=== PATIENT | female | born 1990 | race Caucasian/White ===

== ENCOUNTER 2020-05-09 12:15 | Outpatient (CLI) | payer BC, SELFPAY ==
--- NOTE | 2020-05-09 12:34 | XRR_ITS ---
PROCEDURE INFORMATION: Exam: XR Chest, 2 Views Exam date and time: 05/09/2020 12:46 PM Age: 30 years old Clinical indication: Cough and shortness of breath; Patient HX: Cough difficulty breathing since April; Additional info: Asthmatic bronchitis TECHNIQUE: Imaging protocol: XR of the chest Views: 2 views. COMPARISON: CR Chest 2 views* [id number] 01/07/2018 10:16 AM FINDINGS: Lungs: Unremarkable. No consolidation. Pleural space: Unremarkable. No pleural effusion. No pneumothorax. Heart/Mediastinum: Unremarkable. No cardiomegaly. Bones/joints: No acute findings. XR/XR chest 2V* [id number] IMPRESSION: No acute findings.
== END 2020-05-09 12:16 | disposition home or self-care (01) ==
LOC: RAD 12:21
PROVIDERS: PCP Nurse Practitioner Family; Visit Provider Nurse Practitioner Family
DX: J45.909 Unspecified asthma, uncomplicated (principal)
CPT/HCPCS: 71046

== ENCOUNTER 2020-10-16 10:44 | Outpatient (CLI) | payer BC, SELFPAY ==
--- NOTE | 2020-10-16 10:51 | XR_ITS ---
WS: [id number] XR shoulder RT min 2V* [id number] REASON FOR EXAM: R SHOULDER PAIN FINDINGS: Joint spaces of the shoulder are well preserved. No fracture or other focal bony abnormality. No soft tissue abnormality. XR/XR shoulder RT min 2V* [id number] IMPRESSION: No significant bony or joint abnormality identified.
== END 2020-10-16 10:45 | disposition home or self-care (01) ==
PROVIDERS: PCP Nurse Practitioner Family; Visit Provider Nurse Practitioner Family
DX: M25.511 Pain in right shoulder (principal)
CPT/HCPCS: 73030

== ENCOUNTER 2020-11-26 04:10 | Emergency (ER) | payer BC, SELFPAY ==
[2020-11-26] VITALS (11 sets, daily range): BP systolic 90–121; BP diastolic 54–76; PULSE 70–90; RESP 12–22; TEMP 37.1; O2SAT 93–98; BMI 26.5
[2020-11-26] MEDS: ondansetron 2 mg/ML SDV 2 mL 4 MG IVP ×3 (04:27→07:11)
[2020-11-26 04:57] LABS: Basophils % 0.3 %; Eosinophils % 0.2 %; Hemoglobin 13.5 g/dL (11.5-15.3); Lymphocytes # 0.8 10^3/uL (0.8-4.8); Lymphocytes % 5.8 %; Mean Corpuscular HGB Conc 33.8 g/dL (30.0-36.0); Monocytes # 0.6 10^3/uL (0.2-0.9); Monocytes % 4.3 %; Neutrophils # 12.52 10^3/uL (1.8-7.7); Neutrophils % 89.1 %; Nucleated Red Blood Cells % 0 %; Platelet Count 273 10^3/cmm (130-400); Red Blood Count 4.82 10^6/uL (4.1-5.3); Red Cell Distribution Width 12.7 % (12.1-15.1); White Blood Count 14.1 10^3/uL (4.0-10.0)
--- NOTE | 2020-11-26 05:03 | CTR_ITS ---
PROCEDURE INFORMATION: Exam: CT Abdomen And Pelvis With Contrast Exam date and time: 11/26/2020 5:23 AM Age: 30 years old Clinical indication: Abdominal pain; Generalized; Additional info: Ruq pain TECHNIQUE: Imaging protocol: Computed tomography of the abdomen and pelvis with contrast. Radiation optimization: All CT scans at this facility use at least one of these dose optimization techniques: automated exposure control; mA and/or kV adjustment per patient size (includes targeted exams where dose is matched to clinical indication); or iterative reconstruction. Contrast material: OMNI 300; Contrast volume: 95 ml; Contrast route: INTRAVENOUS (IV); COMPARISON: US abdomen limited [id number] 05/14/2018 9:06 AM RADIATION DOSE METRICS: Total DLP (mGy-cm): 1077.28 FINDINGS: Lungs: The lung bases are clear. No effusion Liver: There is focal fatty infiltration along the falciform ligament. Gallbladder and bile ducts: No wall thickening, pericholecystic fluid or stones. Pancreas: Normal. No ductal dilation. Spleen: Normal. No splenomegaly. Adrenal glands: Normal. No mass. Kidneys and ureters: Normal. No hydronephrosis. Stomach and bowel: Unremarkable. No obstruction. No mucosal thickening. Appendix: No evidence of appendicitis. Intraperitoneal space: Unremarkable. No free air. No significant fluid collection. Vasculature: Unremarkable. No abdominal aortic aneurysm. Lymph nodes: Unremarkable. No enlarged lymph nodes. Urinary bladder: Unremarkable as visualized. Reproductive: There is an IUD in good position. Bones/joints: Unremarkable. No acute fracture. Soft tissues: Unremarkable. CT/CT abdomen pelvis w con* [id number] IMPRESSION: No cause for pain is identified. Radiation Dose CTDIVOL = (mGy): DLP = 1077.28 (mGy-cm)
[2020-11-26 05:07] LABS: HCG, Serum Qual Negative (Negative)
[2020-11-26 05:17] LABS: Alanine Aminotransferase 10 U/L (0-33); Albumin Level 4.4 g/dL (3.5-5.2); Alkaline Phosphatase 58 IU/L (35-105); Anion Gap 18.2 (5-19); Aspartate Amino Transferase 12 U/L (0-32); Blood Urea Nitrogen 17 mg/dL (6-20); C Reactive Protein 6.8 mg/L (0.0-4.9); Calcium 8.2 mg/dL (8.5-10.5); Carbon Dioxide 24 mmol/L (22-29); Chloride 100 mmol/L (98-107); Globulin 2.7 g/dL (1.3-4.6); Glomerular Filtration Rate 146.9 mL/min (90-130); Glucose 137 mg/dL (65-115); Lipase 28 U/L (13-60); Magnesium 1.9 mg/dL (1.7-2.3); Osmolality Calculated 294 mOsm/kg (285-295); Sodium 140 mmol/L (136-145); Total Bilirubin 0.4 mg/dL (0.15-1.2); Total Protein 7.1 g/dL (6.6-8.7)
[2020-11-26 05:18] LABS: Potassium 2.2 mmol/L (3.5-5.1)
--- NOTE | 2020-11-26 05:35 | W.ED.NAVMDI ---
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 She notes that she did not feel well all day, and was tired. She began more and more nauseated, which culminated in an episode of vomiting at home. Following the vomiting episode, she had a period of cramping, mainly in her extremities that was so severe it caused her to cry out in pain. She was sure her hands or wrists were going to break due to the cramps. She called 911. She vomited 1 more time in the ambulance on the way here and had 1 more episode of cramping. Currently she still mildly nauseated but the cramping has resolved. 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: nausea and vomiting Pertinent past history: other Onset (ago): hour(s) Description of vomiting: food contents and watery Associated nausea: Yes Associated abdominal pain: No Location of pain: Other Quality: cramping Associated symtoms: Reports nausea and palpitations; Denies altered mental status, change in vision, chest pain, dizziness or fevers/chills Review of Systems Const: Denies: fever(s) or chills Eyes: Denies: change in vision Card: Reports: palpitations; Denies: chest pain Resp: Denies: dyspnea, productive cough or non-productive cough GI: Reports: nausea Neuro: Denies: dizziness Physical Exam Const: EXAM LIMITATIONS: no altered mental status GENERAL APPEARANCE: well developed ORIENTATION/CONSCIOUSNESS: Yes oriented to person, Yes oriented to place and Yes oriented to time HENMT: COMMON NORMALS: normocephalic, external ears normal and Normal external nose present HEAD & SCALP: normocephalic FACE & SINUS: normal facial exam NOSE: Normal external nose present and No nasal discharge present EXTERNAL EAR: Yes external ears normal Eye: COMMON NORMALS: EOMs intact bilaterally and conjunctivae normal EYELID: eyelids normal CONJUNCTIVA: Yes conjunctivae normal Neck/C-Spine: GENERAL: No tracheal deviation Chest: COMMONS NORMALS: normal inspection of the chest CHEST: No tenderness Resp: COMMON NORMALS: clear to auscultation bilaterally EFFORT & INSPECTION: No tachypneic, No respiratory distress, No retractions, No uses accessory muscles and No tracheal deviation AUSCULTATION: clear to auscultation bilaterally, no rhonchi, no wheezes and lung sounds not diminished Cardio: COMMON NORMALS: regular rate and regular rhythm RATE: regular rate RHYTHM: regular rhythm HEART SOUNDS: no murmurs PERIPHERAL PULSES: radial pulses present GI: INSPECTION: No abdominal distension AUSCULTATION: No Hyperactive bowel sounds present and No Hypoactive bowel sounds present PALPATION: No Guarding due to palpation present (GI) and No Rigid due to palpation PERCUSSION: no dullness to percussion and no tympanic to percussion Neuro: SENSORIUM/ORIENTATION: Yes oriented to person, Yes oriented to place and Yes oriented to time Psych: COMMON NORMALS: mental status grossly normal Skin: COMMON NORMALS: no rashes or lesions noted GENERAL SKIN EXAM: no rashes or lesions noted Course Vital Signs: Vital signs: Vital Signs Temperature 98.8 F 11/26/20 04:13 Pulse Rate 88 11/26/20 11:00 Respiratory Rate 19 H 11/26/20 11:00 Blood Pressure 110/76 11/26/20 11:00 Pulse Oximetry 97 11/26/20 11:00 MDM - Nausea/Vomiting/Diarrhea MDM Narrative: Medical decision making narrative: Cramping episodes have resolved for now. White blood cell count is 14, with left shift. Her potassium is 2.2. Magnesium is normal at 1.9. She will start potassium supplementation IV, since she has been vomiting. Evidently, she take 100 mEq of potassium 5 times a day. She will be given 40 mEq IV we will recheck the potassium following infusion. If she feels improved, she will be allowed home, given a negative CT scan which has been ordered and is pending. Lab Data: Labs: Lab Results 11/26/20 11/26/20 11/26/20 Range/Units 04:49 04:49 04:49 WBC 14.1 H (4.0-10.0) 10^3/ uL RBC 4.82 (4.1-5.3) 10^6/u L Hgb 13.5 (11.5-15.3) g/dL Hct 40.0 (37.0-47.0) % MCV 83.0 (81-99) fL MCH 28.0 (28.0-34.0) pg MCHC 33.8 (30.0-36.0) g/dL RDW 12.7 (12.1-15.1) % Plt Count 273 (130-400) 10^3/c mm MPV 9.0 (7.4-10.4) fL Neut % (Auto) 89.1 % Lymph % (Auto) 5.8 % Crowley % (Auto) 4.3 % Eos % (Auto) 0.2 % Baso % (Auto) 0.3 % Neut # (Auto) 12.52 H (1.8-7.7) 10^3/u L Lymph # (Auto) 0.8 (0.8-4.8) 10^3/u L Crowley # (Auto) 0.6 (0.2-0.9) 10^3/u L Eos # (Auto) 0.0 (0.0-0.8) 10^3/u L Baso # (Auto) 0.0 (0.0-0.1) 10^3/u L Nucleated RBC % (a uto) 0 % Nucleated RBCs # 0.0 /100WBC Sodium 140 (136-145) mmol/L Potassium 2.2 L* (3.5-5.1) mmol/L Chloride 100 (98-107) mmol/L Carbon Dioxide 24 (22-29) mmol/L Anion Gap 18.2 (5-19) BUN 17 (6-20) mg/dL Creatinine 0.5 (0.5-0.9) mg/dL GFR Calculation 146.9 H (90-130) mL/min Glucose 137 H (65-115) mg/dL Calculated Osmolal ity 294 (285-295) mOsm/k g Calcium 8.2 L (8.5-10.5) mg/dL Magnesium 1.9 (1.7-2.3) mg/dL Total Bilirubin 0.4 (0.15-1.2) mg/dL AST 12 (0-32) U/L ALT 10 (0-33) U/L Alkaline Phosphata se 58 (35-105) IU/L C-Reactive Protein 6.8 H (0.0-4.9) mg/L Total Protein 7.1 (6.6-8.7) g/dL Albumin 4.4 (3.5-5.2) g/dL Globulin 2.7 (1.3-4.6) g/dL Lipase 28 (13-60) U/L HCG, Qual Negative (Negative) Urine Color (Yellow) Urine Appearance (CLEAR) Urine pH (5-7) Ur Specific Gravit y (1.005-1.030) Urine Protein (Negative) Urine Glucose (UA) (Normal) Urine Ketones (Negative) Urine Blood (Negative) Urine Nitrate (Negative) Urine Bilirubin (Negative) Prot Sulfosalicyli c Acd (Negative) Urine Urobilinogen (Negative) mg/dL Ur Leukocyte Mary ase (Negative) 11/26/20 11/26/20 Range/Units 06:34 10:30 WBC (4.0-10.0) 10^3/ uL RBC (4.1-5.3) 10^6/u L Hgb (11.5-15.3) g/dL Hct (37.0-47.0) % MCV (81-99) fL MCH (28.0-34.0) pg MCHC (30.0-36.0) g/dL RDW (12.1-15.1) % Plt Count (130-400) 10^3/c mm MPV (7.4-10.4) fL Neut % (Auto) % Lymph % (Auto) % Crowley % (Auto) % Eos % (Auto) % Baso % (Auto) % Neut # (Auto) (1.8-7.7) 10^3/u L Lymph # (Auto) (0.8-4.8) 10^3/u L Crowley # (Auto) (0.2-0.9) 10^3/u L Eos # (Auto) (0.0-0.8) 10^3/u L Baso # (Auto) (0.0-0.1) 10^3/u L Nucleated RBC % (a uto) % Nucleated RBCs # /100WBC Sodium (136-145) mmol/L Potassium 2.9 L D (3.5-5.1) mmol/L Chloride (98-107) mmol/L Carbon Dioxide (22-29) mmol/L Anion Gap (5-19) BUN (6-20) mg/dL Creatinine (0.5-0.9) mg/dL GFR Calculation (90-130) mL/min Glucose (65-115) mg/dL Calculated Osmolal ity (285-295) mOsm/k g Calcium (8.5-10.5) mg/dL Magnesium (1.7-2.3) mg/dL Total Bilirubin (0.15-1.2) mg/dL AST (0-32) U/L ALT (0-33) U/L Alkaline Phosphata se (35-105) IU/L C-Reactive Protein (0.0-4.9) mg/L Total Protein (6.6-8.7) g/dL Albumin (3.5-5.2) g/dL Globulin (1.3-4.6) g/dL Lipase (13-60) U/L HCG, Qual (Negative) Urine Color Straw (Yellow) Urine Appearance Clear (CLEAR) Urine pH 8 H (5-7) Ur Specific Gravit y 1.005 (1.005-1.030) Urine Protein Neg (Negative) Urine Glucose (UA) Norm (Normal) Urine Ketones Negative (Negative) Urine Blood Neg (Negative) Urine Nitrate Negative (Negative) Urine Bilirubin Neg (Negative) Prot Sulfosalicyli c Acd Negative (Negative) Urine Urobilinogen Norm (Negative) mg/dL Ur Leukocyte Mary ase Negative (Negative) Discharge Plan Discharge Patient Disposition: Home Clinical Impression: Acute hypokalemia, Chronic hypokalemia, Bartter syndrome Condition: Stable Prescriptions: New cyclobenzaprine 10 mg tablet 10 mg PO TID PRN (Reason: muscle spasm) Qty: 14 RF: 0 Discharge Orders: Discharge ED (Routine); Ordered 11/26/20 Ordered By: Don Garcia Referrals: Luiza Armijo APN [Primary Care Provider] - Discharge Diet: Advance as tolerated Discharge Activity: Increase activity as tolerated Patient Instructions: Opioid Safety Activity Restrictions/Additional Instructions: Resume your current medications including the potassium and magnesium. Follow-up with your physician/DENTURE TECHNICIAN. Coding Level of Care Code ED Manager Wireless for Chg Fwd Exam Comprehensive Documented by User: Don Garcia 11/26/20 11:30 HPI - Nausea/Vomiting/Diarrhea General: Chief complaint: Nausea/Vomiting/Diarrhea Stated complaint: vomiting, nausea and cramps Time Seen by Provider: 11/26/20 04:14 Course ED course: Dr. Garcia: Discussed with Dr. Grullon. Chart reviewed. Patient seen and appears to be in no acute distress. She states she is feeling much better. CT results show no acute process. We will recheck the potassium after the potassium infusion. Reevaluation(s): Reevaluation #1: Discussed potassium results of 2.9. Patient states that that is good for her. Vital Signs: Vital signs: Vital Signs Temperature 98.8 F 11/26/20 04:13 Pulse Rate 88 11/26/20 11:00 Respiratory Rate 19 H 11/26/20 11:00 Blood Pressure 110/76 11/26/20 11:00 Pulse Oximetry 97 11/26/20 11:00 MDM - Nausea/Vomiting/Diarrhea Lab Data: Labs: Lab Results 11/26/20 11/26/20 11/26/20 Range/Units 04:49 04:49 04:49 WBC 14.1 H (4.0-10.0) 10^3/ uL RBC 4.82 (4.1-5.3) 10^6/u L Hgb 13.5 (11.5-15.3) g/dL Hct 40.0 (37.0-47.0) % MCV 83.0 (81-99) fL MCH 28.0 (28.0-34.0) pg MCHC 33.8 (30.0-36.0) g/dL RDW 12.7 (12.1-15.1) % Plt Count 273 (130-400) 10^3/c mm MPV 9.0 (7.4-10.4) fL Neut % (Auto) 89.1 % Lymph % (Auto) 5.8 % Crowley % (Auto) 4.3 % Eos % (Auto) 0.2 % Baso % (Auto) 0.3 % Neut # (Auto) 12.52 H (1.8-7.7) 10^3/u L Lymph # (Auto) 0.8 (0.8-4.8) 10^3/u L Crowley # (Auto) 0.6 (0.2-0.9) 10^3/u L Eos # (Auto) 0.0 (0.0-0.8) 10^3/u L Baso # (Auto) 0.0 (0.0-0.1) 10^3/u L Nucleated RBC % (a uto) 0 % Nucleated RBCs # 0.0 /100WBC Sodium 140 (136-145) mmol/L Potassium 2.2 L* (3.5-5.1) mmol/L Chloride 100 (98-107) mmol/L Carbon Dioxide 24 (22-29) mmol/L Anion Gap 18.2 (5-19) BUN 17 (6-20) mg/dL Creatinine 0.5 (0.5-0.9) mg/dL GFR Calculation 146.9 H (90-130) mL/min Glucose 137 H (65-115) mg/dL Calculated Osmolal ity 294 (285-295) mOsm/k g Calcium 8.2 L (8.5-10.5) mg/dL Magnesium 1.9 (1.7-2.3) mg/dL Total Bilirubin 0.4 (0.15-1.2) mg/dL AST 12 (0-32) U/L ALT 10 (0-33) U/L Alkaline Phosphata se 58 (35-105) IU/L C-Reactive Protein 6.8 H (0.0-4.9) mg/L Total Protein 7.1 (6.6-8.7) g/dL Albumin 4.4 (3.5-5.2) g/dL Globulin 2.7 (1.3-4.6) g/dL Lipase 28 (13-60) U/L HCG, Qual Negative (Negative) Urine Color (Yellow) Urine Appearance (CLEAR) Urine pH (5-7) Ur Specific Gravit y (1.005-1.030) Urine Protein (Negative) Urine Glucose (UA) (Normal) Urine Ketones (Negative) Urine Blood (Negative) Urine Nitrate (Negative) Urine Bilirubin (Negative) Prot Sulfosalicyli c Acd (Negative) Urine Urobilinogen (Negative) mg/dL Ur Leukocyte Mary ase (Negative) 11/26/20 11/26/20 Range/Units 06:34 10:30 WBC (4.0-10.0) 10^3/ uL RBC (4.1-5.3) 10^6/u L Hgb (11.5-15.3) g/dL Hct (37.0-47.0) % MCV (81-99) fL MCH (28.0-34.0) pg MCHC (30.0-36.0) g/dL RDW (12.1-15.1) % Plt Count (130-400) 10^3/c mm MPV (7.4-10.4) fL Neut % (Auto) % Lymph % (Auto) % Crowley % (Auto) % Eos % (Auto) % Baso % (Auto) % Neut # (Auto) (1.8-7.7) 10^3/u L Lymph # (Auto) (0.8-4.8) 10^3/u L Crowley # (Auto) (0.2-0.9) 10^3/u L Eos # (Auto) (0.0-0.8) 10^3/u L Baso # (Auto) (0.0-0.1) 10^3/u L Nucleated RBC % (a uto) % Nucleated RBCs # /100WBC Sodium (136-145) mmol/L Potassium 2.9 L D (3.5-5.1) mmol/L Chloride (98-107) mmol/L Carbon Dioxide (22-29) mmol/L Anion Gap (5-19) BUN (6-20) mg/dL Creatinine (0.5-0.9) mg/dL GFR Calculation (90-130) mL/min Glucose (65-115) mg/dL Calculated Osmolal ity (285-295) mOsm/k g Calcium (8.5-10.5) mg/dL Magnesium (1.7-2.3) mg/dL Total Bilirubin (0.15-1.2) mg/dL AST (0-32) U/L ALT (0-33) U/L Alkaline Phosphata se (35-105) IU/L C-Reactive Protein (0.0-4.9) mg/L Total Protein (6.6-8.7) g/dL Albumin (3.5-5.2) g/dL Globulin (1.3-4.6) g/dL Lipase (13-60) U/L HCG, Qual (Negative) Urine Color Straw (Yellow) Urine Appearance Clear (CLEAR) Urine pH 8 H (5-7) Ur Specific Gravit y 1.005 (1.005-1.030) Urine Protein Neg (Negative) Urine Glucose (UA) Norm (Normal) Urine Ketones Negative (Negative) Urine Blood Neg (Negative) Urine Nitrate Negative (Negative) Urine Bilirubin Neg (Negative) Prot Sulfosalicyli c Acd Negative (Negative) Urine Urobilinogen Norm (Negative) mg/dL Ur Leukocyte Mary ase Negative (Negative) Discharge Plan Discharge Patient Disposition: Home Clinical Impression: Acute hypokalemia, Chronic hypokalemia, Bartter syndrome Condition: Stable Prescriptions: New cyclobenzaprine 10 mg tablet 10 mg PO TID PRN (Reason: muscle spasm) Qty: 14 RF: 0 Discharge Orders: Discharge ED (Routine); Ordered 11/26/20 Ordered By: Don Garcia Referrals: Luiza Armijo APN [Primary Care Provider] - Discharge Diet: Advance as tolerated Discharge Activity: Increase activity as tolerated Patient Instructions: Opioid Safety Activity Restrictions/Additional Instructions: Resume your current medications including the potassium and magnesium. Follow-up with your physician/DENTURE TECHNICIAN. Coding Level of Care Code ED Manager Wireless for Chg Fwd Exam Comprehensive
[2020-11-26] MEDS: iohexol 300 mg/mL 100 mL Btl IV (05:36)
[2020-11-26] MEDS: potassium chloride premix 100 ML 25 MEQ IV (05:54)
--- NOTE | 2020-11-26 05:59 | ECG_ITS ---
[facility] Test Date: 2020-11-26 Pat Name: Devi Hernandez Department: Room: Gender: Female Unit Coordinator: : 1990 Requested By: Yusef Carlson Order Number: [id number] Michael MD: HILDA JACOBS Measurements Intervals [place] Rate: 88 P: 73 HI: 149 QRS: 70 QRSD: 105 T: 43 QT: 388 QTc: 471 Interpretive Statements SINUS RHYTHM INCOMPLETE RIGHT BUNDLE BRANCH BLOCK [90+ ms QRS DURATION, TERMINAL R IN V1/V2, 40+ ms S IN I/aVL/V4/V5/V6] NONSPECIFIC ST & T-WAVE ABNORMALITY Compared to ECG 08/19/2017 19:24:58 No significant changes Electronically Signed On 11-26-2020 21:16:56 CDT by HILDA JACOBS [email or web address]
[2020-11-26] MEDS: fentaNYL 50 mcg/mL INJ 2mL IVP (07:11)
[2020-11-26] MEDS: orphenadrine 30 mg/mL Inj 2 mL 60 MG IVP (07:25)
[2020-11-26 08:08] LABS: Add Urine Microscopic? NO; Charge for UA Resulting for Rev
[2020-11-26 08:33] LABS: Bilirubin Urine Neg (Negative); Blood Urine Neg (Negative); Glucose Urine UA Norm (Normal); Ketones Urine Negative (Negative); Leukocyte Esterase Urine Negative (Negative); Nitrate Urine Negative (Negative); Protein Urine Neg (Negative); Specific Gravity, Urine 1.005 (1.005-1.030); Sulfosalicylic Acid Urine Negative (Negative); Urine Appearance Clear (CLEAR); Urine Color Straw (Yellow); Urobilinogen Urine Norm (Negative); pH Urine 8 (5-7)
[2020-11-26 11:09] LABS: Potassium 2.9 mmol/L (3.5-5.1)
== END 2020-11-26 11:42 | disposition home or self-care (01) ==
PROVIDERS: Emergency Medicine; Emergency Provider Emergency Medicine; PCP Nurse Practitioner Family
DX: E87.6 Hypokalemia (principal); E26.81 Bartter's syndrome
CPT/HCPCS: 36415; 74177; 80053; 81003; 83690; 83735; 84132; 84703; 85025; 86140; 93005; 96365; 96366; 96375; 96376; 99284; J2360; J2405; J3010; J3480; Q9967

== ENCOUNTER 2020-12-19 15:04 | Outpatient (CLI) | payer BC, MEDICAID, SELFPAY ==
--- NOTE | 2020-12-19 16:00 | MR_ITS ---
WS: [id number] MRI BRAIN WITH AND WITHOUT CONTRAST HISTORY: VISION CHANGES, MIGRAINES, BLURRED VISION COMPARISON: CT head 06/04/2019 TECHNIQUE: Multiplanar imaging performed through the brain with MultiHance 14 ml's IV. No acute infarcts are seen. Denson-white matter differentiation is well preserved. No susceptibility artifacts or prior lacunar infarcts. Ventricles and extra-axial spaces are normal. Clivus and pituitary gland are normal. Visualized posterior fossa and brainstem are also normal. Mild ectopia the cerebellar tonsils. Postcontrast images are negative for masses or vascular malformations. Dural venous sinuses are normal. Paranasal sinuses: Well aerated with no significant disease. Mastoid air cells: Normal. Calvarium and scalp: Normal. MR/MR head wo/w con [id number] IMPRESSION: 1. Normal MRI brain with contrast. 2. Normal pituitary gland and sella turcica. 3. Mild ectopia of the cerebellar tonsils but no Chiari malformation.
== END 2020-12-19 15:05 | disposition home or self-care (01) ==
PROVIDERS: PCP Nurse Practitioner Family; Visit Provider Nurse Practitioner Family
DX: H53.9 Unspecified visual disturbance (principal); G43.709 Chronic migraine without aura, not intractable, without status migrainosus; H53.8 Other visual disturbances
CPT/HCPCS: 70553

== ENCOUNTER 2021-07-31 05:00 | Emergency (ER) | payer BC, MEDICAID, SELFPAY ==
[2021-07-31 05:05] VITALS: BP 113/76; PULSE 94; RESP 18; TEMP 36.9; O2SAT 98; BMI 26.5
--- NOTE | 2021-07-31 05:17 | W.ED.ABDPA2 ---
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 States she has had cramping of her hands many times in the past with her borders and hypokalemia. She states that her pain in her lower abdomen is suprapubic in nature rates it a 4 out of 10 she denies any fever denies any vomiting or diarrhea denies any worsening improving factors. She denies any vaginal discharge denies any back pain or radiation of her pain. Associated Symptoms: Denies chills, diarrhea, dysuria, fever(s), nausea and vomiting Review of Systems Const: Denies: fever(s), chills, body aches or change in appetite Eyes: Denies: blurry vision or eye discomfort ENMT: Denies: throat pain or dental pain Card: Denies: chest pain Resp: Denies: dyspnea GI: Reports: abdominal pain; Denies: nausea, vomiting or diarrhea : Denies: dysuria Musc: Denies: neck pain or back pain Skin/Breast: Denies: rash Neuro: Denies: headache(s) Psych: Denies: depression Fabián/Lymph: Denies: easy bruising All/Imm: Denies: urticaria Physical Exam Const: COMMON NORMALS: no acute distress, patient oriented x3 and healthy appearing HENMT: COMMON NORMALS: normocephalic and atraumatic HEAD & SCALP: normocephalic and atraumatic Eye: COMMON NORMALS: Equal, round and reactive pupils present and EOMs intact bilaterally PUPIL: Yes Equal, round and reactive pupils present Neck/C-Spine: COMMON NORMALS: full ROM and supple Chest: COMMONS NORMALS: normal inspection of the chest and normal palpation of entire chest wall Resp: COMMON NORMALS: normal respiratory effort, No retractions, No use of accessory muscles and clear to auscultation bilaterally AUSCULTATION: clear to auscultation bilaterally Cardio: COMMON NORMALS: regular rate, regular rhythm and No murmurs present (Cardio) RATE: regular rate RHYTHM: regular rhythm GI: COMMON NORMALS: Normal to inspection, nondistended, normoactive bowel sounds present, Soft to palpation, non-tender and no masses PALPATION: Yes Soft to palpation Extremity: COMMON NORMALS: normal to inspection and full ROM Neuro: COMMON NORMALS: patient oriented x3, moves all extremities and no focal motor deficits Psych: COMMON NORMALS: mental status grossly normal, Normal thought process present and cooperative THOUGHT PROCESS: Normal thought process present Skin: COMMON NORMALS: no rashes or lesions noted and no wounds GENERAL SKIN EXAM: no rashes or lesions noted Course Vital Signs: Vital signs: Vital Signs Temperature 98.5 F 07/31/21 05:05 Pulse Rate 78 07/31/21 06:37 Respiratory Rate 17 07/31/21 06:37 Blood Pressure 109/78 07/31/21 06:37 Pulse Oximetry 98 07/31/21 06:37 MDM - Abdominal Pain Lab Data: Labs: Lab Results 07/31/21 07/31/21 07/31/21 05:30 05:41 05:41 WBC 7.2 10^3/uL 10^3/ uL (4.0-10.0) RBC 5.06 10^6/uL 10^6 /uL (4.1-5.3) Hgb 14.0 g/dL g/dL (11.5-15.3) Hct 41.5 % % (37.0-47.0) MCV 82.0 fl fl (81-99) MCH 27.7 pg L pg (28.0-34.0) MCHC 33.7 g/dL g/dL (30.0-36.0) RDW 13.0 % % (12.1-15.1) Plt Count 309 10^3/cmm 10^3 /cmm (130-400) MPV 9.2 fL fL (7.4-10.4) Neut % (Auto) 69.6 % % Lymph % (Auto) 21.9 % % [place] % (Auto) 6.0 % % Eos % (Auto) 1.7 % % Baso % (Auto) 0.7 % % Neut # (Auto) 5.03 10^3/uL 10^3 /uL (1.8-7.7) Lymph # (Auto) 1.6 10^3/uL 10^3/ uL (0.8-4.8) [place] # (Auto) 0.4 10^3/uL 10^3/ uL (0.2-0.9) Eos # (Auto) 0.1 10^3/uL 10^3/ uL (0.0-0.8) Baso # (Auto) 0.1 10^3/uL 10^3/ uL (0.0-0.1) Nucleated RBC % (a uto) 0 % % Nucleated RBCs # 0.0 /100WBC /100W BC Sodium 139 mmol/L mmol/L (136-145) Potassium 3.0 mmol/L L mmol /L (3.5-5.1) Chloride 101 mmol/L mmol/L (98-107) Carbon Dioxide 23 mmol/L mmol/L (22-29) Anion Gap 18.0 (5-19) BUN 9 mg/dL mg/dL (6-20) Creatinine 0.5 mg/dL mg/dL (0.5-0.9) GFR Calculation 145.9 mL/min H mL /min (90-130) Glucose 112 mg/dL mg/dL (65-115) Calculated Osmolal ity 287 mOsm/kg mOsm/ kg (285-295) Calcium 9.0 mg/dL mg/dL (8.5-10.5) Magnesium 1.2 mg/dL L mg/dL (1.7-2.3) Total Bilirubin 0.3 mg/dL mg/dL (0.15-1.2) AST 11 U/L U/L (0-32) ALT 8 U/L U/L (0-33) Alkaline Phosphata se 52 IU/L IU/L (35-105) Total Protein 7.5 g/dL g/dL (6.6-8.7) Albumin 4.6 g/dL g/dL (3.5-5.2) Globulin 2.9 g/dL g/dL (1.3-4.6) Lipase 31 U/L U/L (13-60) HCG, Qual Urine Color Yellow (Yellow) Urine Appearance Clear (CLEAR) Urine pH 9 H (5-7) Ur Specific Gravit y 1.010 (1.005-1.030) Urine Protein Neg (Negative) Urine Glucose (UA) Norm (Normal) Urine Ketones Negative (Negative) Urine Blood Neg (Negative) Urine Nitrate Negative (Negative) Urine Bilirubin Neg (Negative) Prot Sulfosalicyli c Acd Negative (Negative) Urine Urobilinogen Norm mg/dL mg/dL (Negative) Ur Leukocyte Mary ase Negative (Negative) 07/31/21 06:35 WBC RBC Hgb Hct MCV MCH MCHC RDW Plt Count MPV Neut % (Auto) Lymph % (Auto) [place] % (Auto) Eos % (Auto) Baso % (Auto) Neut # (Auto) Lymph # (Auto) [place] # (Auto) Eos # (Auto) Baso # (Auto) Nucleated RBC % (a uto) Nucleated RBCs # Sodium Potassium Chloride Carbon Dioxide Anion Gap BUN Creatinine GFR Calculation Glucose Calculated Osmolal ity Calcium Magnesium Total Bilirubin AST ALT Alkaline Phosphata se Total Protein Albumin Globulin Lipase HCG, Qual Negative (Negative) Urine Color Urine Appearance Urine pH Ur Specific Gravit y Urine Protein Urine Glucose (UA) Urine Ketones Urine Blood Urine Nitrate Urine Bilirubin Prot Sulfosalicyli c Acd Urine Urobilinogen Ur Leukocyte Mary ase Discharge Plan Discharge Patient Disposition: Home Clinical Impression: Abdominal pain, Hypomagnesemia, Bartter's syndrome Condition: Stable Prescriptions: No Action cyclobenzaprine 10 mg tablet 10 mg PO TID PRN (Reason: muscle spasm) Qty: 14 RF: 0 Discharge Orders: Discharge ED (Routine); Ordered 07/31/21 Ordered By: Manuelito Connell Referrals: Armijo,CHUNG Jarrett [Primary Care Provider] - Discharge Diet: Usual diet Discharge Activity: Resume usual activity Patient Instructions: Abdominal Pain (ED), Opioid Safety Activity Restrictions/Additional Instructions: Recheck with your primary care doctor next 3 to 4 days. Return to the emergency room you have any further problems. Sign Out Sign Out Data: Patient Sign Out occurred on 07/31/21 at 06:19. Patient's care was discussed, and care was transferred from to Manuelito Connell DO. Coding Level of Care Code ED Racing Manager for Chg Fwd Exam Comprehensive Documented by User: Manuelito Connell DO 07/31/21 07:40 HPI - Abdominal Pain General: Chief Complaint: Abdominal Pain Stated Complaint: potassium problems Time Seen by Provider: 07/31/21 05:09 Course Vital Signs: Vital signs: Vital Signs Temperature 98.5 F 07/31/21 05:05 Pulse Rate 78 07/31/21 06:37 Respiratory Rate 17 07/31/21 06:37 Blood Pressure 109/78 07/31/21 06:37 Pulse Oximetry 98 07/31/21 06:37 MDM - Abdominal Pain MDM Narrative: Medical decision making narrative: Care assumed a change of shift. Patient continues to have hypomagnesium and hypokalemia. Continue her oral supplementation of magnesium we will give her 60 mEq of oral potassium now discharged home with follow-up with primary care doctor in the next 3 to 4 days for repeat potassium and magnesium levels impression problems return. Repeat abdominal exam is generally benign and do not recommend advanced imaging in this setting based on labs and exam. Lab Data: Labs: Lab Results 07/31/21 07/31/21 07/31/21 05:30 05:41 05:41 WBC 7.2 10^3/uL 10^3/ uL (4.0-10.0) RBC 5.06 10^6/uL 10^6 /uL (4.1-5.3) Hgb 14.0 g/dL g/dL (11.5-15.3) Hct 41.5 % % (37.0-47.0) MCV 82.0 fl fl (81-99) MCH 27.7 pg L pg (28.0-34.0) MCHC 33.7 g/dL g/dL (30.0-36.0) RDW 13.0 % % (12.1-15.1) Plt Count 309 10^3/cmm 10^3 /cmm (130-400) MPV 9.2 fL fL (7.4-10.4) Neut % (Auto) 69.6 % % Lymph % (Auto) 21.9 % % [place] % (Auto) 6.0 % % Eos % (Auto) 1.7 % % Baso % (Auto) 0.7 % % Neut # (Auto) 5.03 10^3/uL 10^3 /uL (1.8-7.7) Lymph # (Auto) 1.6 10^3/uL 10^3/ uL (0.8-4.8) [place] # (Auto) 0.4 10^3/uL 10^3/ uL (0.2-0.9) Eos # (Auto) 0.1 10^3/uL 10^3/ uL (0.0-0.8) Baso # (Auto) 0.1 10^3/uL 10^3/ uL (0.0-0.1) Nucleated RBC % (a uto) 0 % % Nucleated RBCs # 0.0 /100WBC /100W BC Sodium 139 mmol/L mmol/L (136-145) Potassium 3.0 mmol/L L mmol /L (3.5-5.1) Chloride 101 mmol/L mmol/L (98-107) Carbon Dioxide 23 mmol/L mmol/L (22-29) Anion Gap 18.0 (5-19) BUN 9 mg/dL mg/dL (6-20) Creatinine 0.5 mg/dL mg/dL (0.5-0.9) GFR Calculation 145.9 mL/min H mL /min (90-130) Glucose 112 mg/dL mg/dL (65-115) Calculated Osmolal ity 287 mOsm/kg mOsm/ kg (285-295) Calcium 9.0 mg/dL mg/dL (8.5-10.5) Magnesium 1.2 mg/dL L mg/dL (1.7-2.3) Total Bilirubin 0.3 mg/dL mg/dL (0.15-1.2) AST 11 U/L U/L (0-32) ALT 8 U/L U/L (0-33) Alkaline Phosphata se 52 IU/L IU/L (35-105) Total Protein 7.5 g/dL g/dL (6.6-8.7) Albumin 4.6 g/dL g/dL (3.5-5.2) Globulin 2.9 g/dL g/dL (1.3-4.6) Lipase 31 U/L U/L (13-60) HCG, Qual Urine Color Yellow (Yellow) Urine Appearance Clear (CLEAR) Urine pH 9 H (5-7) Ur Specific Gravit y 1.010 (1.005-1.030) Urine Protein Neg (Negative) Urine Glucose (UA) Norm (Normal) Urine Ketones Negative (Negative) Urine Blood Neg (Negative) Urine Nitrate Negative (Negative) Urine Bilirubin Neg (Negative) Prot Sulfosalicyli c Acd Negative (Negative) Urine Urobilinogen Norm mg/dL mg/dL (Negative) Ur Leukocyte Mary ase Negative (Negative) 07/31/21 06:35 WBC RBC Hgb Hct MCV MCH MCHC RDW Plt Count MPV Neut % (Auto) Lymph % (Auto) [place] % (Auto) Eos % (Auto) Baso % (Auto) Neut # (Auto) Lymph # (Auto) [place] # (Auto) Eos # (Auto) Baso # (Auto) Nucleated RBC % (a uto) Nucleated RBCs # Sodium Potassium Chloride Carbon Dioxide Anion Gap BUN Creatinine GFR Calculation Glucose Calculated Osmolal ity Calcium Magnesium Total Bilirubin AST ALT Alkaline Phosphata se Total Protein Albumin Globulin Lipase HCG, Qual Negative (Negative) Urine Color Urine Appearance Urine pH Ur Specific Gravit y Urine Protein Urine Glucose (UA) Urine Ketones Urine Blood Urine Nitrate Urine Bilirubin Prot Sulfosalicyli c Acd Urine Urobilinogen Ur Leukocyte Mary ase Discharge Plan Discharge Patient Disposition: Home Clinical Impression: Abdominal pain, Hypomagnesemia, Bartter's syndrome Condition: Stable Prescriptions: No Action cyclobenzaprine 10 mg tablet 10 mg PO TID PRN (Reason: muscle spasm) Qty: 14 RF: 0 Discharge Orders: Discharge ED (Routine); Ordered 07/31/21 Ordered By: Manuelito Connell Referrals: Armijo,CHUNG Jarrett [Primary Care Provider] - Discharge Diet: Usual diet Discharge Activity: Resume usual activity Patient Instructions: Abdominal Pain (ED), Opioid Safety Activity Restrictions/Additional Instructions: Recheck with your primary care doctor next 3 to 4 days. Return to the emergency room you have any further problems. Sign Out Sign Out Data: Patient Sign Out occurred on 07/31/21 at 06:19. Patient's care was discussed, and care was transferred from to Manuelito Connell DO. Coding Level of Care Code ED Racing Manager for Melany Fwd Exam Comprehensive
[2021-07-31 05:43] VITALS: BP 111/70; PULSE 86; RESP 20; O2SAT 95
[2021-07-31 05:49] VITALS: RESP 18
[2021-07-31] MEDS: morphine 4 mg/mL SDV 1 mL IVP (05:49)
[2021-07-31] MEDS: ondansetron 2 mg/ML SDV 2 mL 4 MG IVP (05:49)
[2021-07-31] MEDS: sodium chloride 0.9% 1,000 ML 999 ML IV (05:50)
[2021-07-31 06:15] LABS: Add Urine Microscopic? NO; Charge for UA Resulting for Rev
[2021-07-31 06:15] LABS: Basophils # 0.1 10^3/uL (0.0-0.1); Basophils % 0.7 %; Eosinophils # 0.1 10^3/uL (0.0-0.8); Eosinophils % 1.7 %; Hematocrit 41.5 % (37.0-47.0); Lymphocytes # 1.6 10^3/uL (0.8-4.8); Lymphocytes % 21.9 %; Mean Corpuscular HGB Conc 33.7 g/dL (30.0-36.0); Mean Corpuscular Hemoglobin 27.7 pg (28.0-34.0); Mean Platelet Volume 9.2 fL (7.4-10.4); Monocytes # 0.4 10^3/uL (0.2-0.9); Neutrophils # 5.03 10^3/uL (1.8-7.7); Neutrophils % 69.6 %; Nucleated Red Blood Cells % 0 %; Platelet Count 309 10^3/cmm (130-400); Red Blood Count 5.06 10^6/uL (4.1-5.3); White Blood Count 7.2 10^3/uL (4.0-10.0)
[2021-07-31 06:27] LABS: Alanine Aminotransferase 8 U/L (0-33); Albumin Level 4.6 g/dL (3.5-5.2); Alkaline Phosphatase 52 IU/L (35-105); Aspartate Amino Transferase 11 U/L (0-32); Blood Urea Nitrogen 9 mg/dL (6-20); Carbon Dioxide 23 mmol/L (22-29); Chloride 101 mmol/L (98-107); Globulin 2.9 g/dL (1.3-4.6); Glomerular Filtration Rate 145.9 mL/min (90-130); Glucose 112 mg/dL (65-115); Lipase 31 U/L (13-60); Magnesium 1.2 mg/dL (1.7-2.3); Osmolality Calculated 287 mOsm/kg (285-295); Sodium 139 mmol/L (136-145); Total Bilirubin 0.3 mg/dL (0.15-1.2); Total Protein 7.5 g/dL (6.6-8.7)
[2021-07-31 06:37] VITALS: BP 109/78; PULSE 78; RESP 17; O2SAT 98
[2021-07-31 06:46] LABS: Bilirubin Urine Neg (Negative); Blood Urine Neg (Negative); Glucose Urine UA Norm (Normal); Ketones Urine Negative (Negative); Leukocyte Esterase Urine Negative (Negative); Nitrate Urine Negative (Negative); Protein Urine Neg (Negative); Urine Appearance Clear (CLEAR); Urine Color Yellow (Yellow); Urobilinogen Urine Norm (Negative); pH Urine 9 (5-7)
[2021-07-31 06:47] LABS: Sulfosalicylic Acid Urine Negative (Negative)
[2021-07-31 07:00] VITALS: BP 113/76; PULSE 82; RESP 12; O2SAT 98
[2021-07-31 07:08] LABS: HCG, Serum Qual Negative (Negative)
[2021-07-31 07:30] VITALS: BP 106/71; PULSE 91; RESP 12; O2SAT 99
[2021-07-31] MEDS: potassium chloride oral liq 20 mEq/15 mL UDC 60 MEQ PO (07:44)
--- NOTE | 2021-07-31 07:55 | PC.NURSE ---
patient verbalizes understanding of all instructions and follow ups, removed IV, cath intact, pt aydee well. pt on way to pick her up, will discharge upon arrival.
== END 2021-07-31 08:14 | disposition home or self-care (01) ==
PROVIDERS: Emergency Medicine; Emergency Provider Family Medicine; PCP Nurse Practitioner Family
DX: R10.9 Unspecified abdominal pain (principal); E83.42 Hypomagnesemia; E26.81 Bartter's syndrome
CPT/HCPCS: 80053; 81003; 83690; 83735; 84703; 85025; 96361; 96374; 96375; 99284; J2270; J2405; J7030

== ENCOUNTER 2022-06-11 23:52 | Emergency (ER) | payer OTHER, BC, MEDICAID, SELFPAY ==
[2022-06-11 23:56] VITALS: BP 111/80; PULSE 98; RESP 22; TEMP 36.4; O2SAT 99; BMI 26.5
[2022-06-12] VITALS (7 sets, daily range): BP systolic 100–125; BP diastolic 61–80; PULSE 83–90; RESP 12–25; O2SAT 93–100
--- NOTE | 2022-06-12 00:01 | XRR_ITS ---
PROCEDURE INFORMATION: Exam: XR Chest Exam date and time: 06/12/2022 1:21 AM Age: 32 years old Clinical indication: Pain; Chest pressure; Patient HX: C/O palpitations with nausea; Additional info: Cp TECHNIQUE: Imaging protocol: Radiologic exam of the chest. Views: 1 view. COMPARISON: CR XR chest 2V* [id number] 05/09/2020 12:42 PM FINDINGS: Lungs: Unremarkable. No consolidation. Pleural spaces: Unremarkable. No pleural effusion. No pneumothorax. Heart/Mediastinum: Unremarkable. No cardiomegaly. Bones/joints: Unremarkable. XR/XR chest 1V portable [id number] IMPRESSION: No change, unremarkable
--- NOTE | 2022-06-12 00:01 | ECG_ITS ---
[facility] Test Date: 2022-06-12 Pat Name: Devi Hernandez Department: Room: Gender: Female Lifestyle Director: : 1990 Requested By: Prudencio Rosa Order Number: [id number] Michael MD: Jennifer Wall M.D. Measurements Intervals [place] Rate: 94 P: 73 HI: 132 QRS: 84 QRSD: 93 T: 68 QT: 346 QTc: 433 Interpretive Statements SINUS RHYTHM ST DEVIATION AND MODERATE T-WAVE ABNORMALITY, CONSIDER ANTERIOR ISCHEMIA [-0.1+ mV T-WAVE IN V3/V4] Compared to ECG 11/26/2020 04:23:50 Possible ischemia now present Incomplete right bundle-branch block no longer present T-wave abnormality still present Electronically Signed On 06-12-2022 8:48:39 CITY CONTROLLER by Jennifer Wall M.D. [email or web address] [email or web address].Hot Dot/store/[id number] f
--- NOTE | 2022-06-12 00:10 | ED_ITS ---
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 Denies any worsening improving factors Associated symptoms: Reports abdominal pain, nausea and vomiting; Deny dyspnea or fever(s) Review of Systems Const: Denies: fever(s), chills, body aches or change in appetite Eyes: Denies: blurry vision or eye discomfort ENMT: Denies: throat pain or dental pain Card: Reports: chest pain Resp: Denies: dyspnea GI: Reports: abdominal pain, nausea and vomiting; Denies: diarrhea : Denies: dysuria Musc: Denies: neck pain or back pain Skin/Breast: Denies: rash Neuro: Denies: headache(s) Psych: Denies: depression Fabián/Lymph: Denies: easy bruising All/Imm: Denies: urticaria PFSH ED PFSH: Medical History (Updated 06/12/22 @ 03:02 by Prudencio Rosa MD) Bartter syndrome Social History (Updated 06/12/22 @ 00:10 by Prudencio Rosa MD) Substance/Drug Use: never Physical Exam Const: COMMON NORMALS: no acute distress, patient oriented x3 and healthy appearing HENMT: COMMON NORMALS: normocephalic and atraumatic HEAD & SCALP: normocephalic and atraumatic Eye: COMMON NORMALS: Equal, round and reactive pupils present and EOMs intact bilaterally PUPIL: Yes Equal, round and reactive pupils present Neck/C-Spine: COMMON NORMALS: full ROM and supple Chest: COMMONS NORMALS: normal inspection of the chest and normal palpation of entire chest wall Resp: COMMON NORMALS: normal respiratory effort, No retractions, No use of accessory muscles and clear to auscultation bilaterally AUSCULTATION: clear to auscultation bilaterally Cardio: COMMON NORMALS: regular rate, regular rhythm and No murmurs present (Cardio) RATE: regular rate RHYTHM: regular rhythm GI: COMMON NORMALS: Normal to inspection, nondistended, normoactive bowel sounds present, Soft to palpation, non-tender and no masses PALPATION: Yes Soft to palpation Extremity: COMMON NORMALS: normal to inspection and full ROM Neuro: COMMON NORMALS: patient oriented x3, moves all extremities and no focal motor deficits Psych: COMMON NORMALS: mental status grossly normal, Normal thought process present and cooperative THOUGHT PROCESS: Normal thought process present Skin: COMMON NORMALS: no rashes or lesions noted and no wounds GENERAL SKIN EXAM: no rashes or lesions noted Course Vital Signs: Vital signs: Vital Signs Temperature 97.6 F 06/11/22 23:56 Pulse Rate 85 06/12/22 02:30 Respiratory Rate 16 06/12/22 02:30 Blood Pressure 117/68 06/12/22 02:30 Pulse Oximetry 93 06/12/22 02:30 Oxygen Delivery Me thod 06/11/22 23:56 MDM - Chest Pain Medical Decision Making Patient presents here with hyperkalemia along with hypomagnesia that is chronic in nature. Patient is well-appearing here she is stable for discharge her potassium has improved did give her magnesium replacement as well. Lab Data : 06/12/22 01:47 06/12/22 02:11 Radiology Impressions Chest X-Ray 06/12/22 00:01 IMPRESSION: No change, unremarkable Laboratory Results WBC 9.3 10^3/uL (4.0-10.0) 06/12/22 01:47 Corrected WBC Cancelled 06/12/22 00:30 RBC 4.80 10^6/uL (4.1-5.3) 06/12/22 01:47 Hgb 13.7 g/dL (11.5-15.3) 06/12/22 01:47 Hct 40.5 % (37.0-47.0) 06/12/22 01:47 MCV 84.4 fl (81-99) 06/12/22 01:47 MCH 28.5 pg (28.0-34.0) 06/12/22 01:47 MCHC 33.8 g/dL (30.0-36.0) 06/12/22 01:47 RDW 12.1 % (12.1-15.1) 06/12/22 01:47 Plt Count 281 10^3/cmm (130-400) 06/12/22 01:47 MPV 8.7 fL (7.4-10.4) 06/12/22 01:47 Gran % Cancelled 06/12/22 00:30 Neut % (Auto) 78.5 % 06/12/22 01:47 Lymph % (Auto) 14.9 % 06/12/22 01:47 [place] % (Auto) 5.6 % 06/12/22 01:47 Eos % (Auto) 0.4 % 06/12/22 01:47 Baso % (Auto) 0.2 % 06/12/22 01:47 Neut # (Auto) 7.27 10^3/uL (1.8-7.7) 06/12/22 01:47 Lymph # (Auto) 1.4 10^3/uL (0.8-4.8) 06/12/22 01:47 [place] # (Auto) 0.5 10^3/uL (0.2-0.9) 06/12/22 01:47 Eos # (Auto) 0.0 10^3/uL (0.0-0.8) 06/12/22 01:47 Baso # (Auto) 0.0 10^3/uL (0.0-0.1) 06/12/22 01:47 Absolute Gran (auto) Cancelled 06/12/22 00:30 Nucleated RBC % (auto) 0 % 06/12/22 01:47 Nucleated RBCs # 0.0 /100WBC 06/12/22 01:47 Sodium 138 mmol/L (136-145) 06/12/22 00:30 Potassium 3.0 mmol/L (3.5-5.1) L 06/12/22 02:11 Chloride 98 mmol/L (98-107) 06/12/22 00:30 Carbon Dioxide 22 mmol/L (22-29) 06/12/22 00:30 Anion Gap 20.5 (5-19) H 06/12/22 00:30 BUN 20 mg/dL (6-20) 06/12/22 00:30 Creatinine 0.6 mg/dL (0.5-0.9) 06/12/22 00:30 GFR Calculation 117.4 mL/min (90-130) 06/12/22 00:30 Glucose 114 mg/dL (65-115) 06/12/22 00:30 Calculated Osmolality 289 mOsm/kg (285-295) 06/12/22 00:30 Calcium 8.5 mg/dL (8.5-10.5) 06/12/22 00:30 Magnesium 1.2 mg/dL (1.7-2.3) L 06/12/22 00:30 Total Bilirubin 0.5 mg/dL (0.15-1.2) 06/12/22 00:30 AST 10 U/L (0-32) 06/12/22 00:30 ALT 12 U/L (0-33) 06/12/22 00:30 Alkaline Phosphatase 55 U/L (35-105) 06/12/22 00:30 Troponin T Baseline 6 ng/L (0-10) 06/12/22 00:30 Troponin T 120 Minute 6.00 ng/L (0-10) 06/12/22 02:11 Delta Troponin T 0 ABS# (0-10) 06/12/22 02:11 Total Protein 7.3 g/dL (6.6-8.7) 06/12/22 00:30 Albumin 4.2 g/dL (3.5-5.2) 06/12/22 00:30 Globulin 3.1 g/dL (1.3-4.6) 06/12/22 00:30 Lipase 29 U/L (13-60) 06/12/22 00:30 EKG Data EKG 1: I personally reviewed and interpreted this EKG as follows: EKG interpretation date: 06/12/22 EKG interpretation time: 00:05 Interpretation: nsr hr [address] or t wave abnormalities qrs 93 qtc 397 Discharge Plan Discharge Patient Disposition: Home Clinical Impression: Hypokalemia, Hypomagnesemia Prescriptions: New potassium chloride 40 mEq/15 mL liquid 40 meq PO BID 5 Days Qty: 150 0RF ondansetron 4 mg tablet,disintegrating 4 mg PO Q6H PRN (Reason: nausea and vomiting) Qty: 14 0RF No Action cyclobenzaprine 10 mg tablet 10 mg PO TID PRN (Reason: muscle spasm) Qty: 14 0RF Rx Instructions: Do not drive or operate equipment while using this medication. Discharge Orders: Discharge ED (Routine); Ordered 06/12/22 Ordered By: Prudencio Rosa Referrals: Armijo,CHUNG Jarrett [Primary Care Provider] - 1-3 days Discharge Diet: Advance as tolerated Discharge Activity: Resume usual activity Patient Instructions: Hypokalemia (ED) Coding Level of Care Code ED Right Of Way Maintenance Supervisor for Chg Fwd Exam Comprehensive
[2022-06-12] MEDS: sodium chloride 0.9% 1,000 ML 999 ML IV (00:20)
[2022-06-12] MEDS: ondansetron 2 mg/ML SDV 2 mL 4 MG IVP (00:40)
[2022-06-12] MEDS: potassium chloride ER 20 mEq Tablet 80 MEQ PO (00:40)
[2022-06-12] MEDS: magnesium sulfate premix 2 GM/50 ML PIGGYBACK IV (00:43)
[2022-06-12 00:53] LABS: Alanine Aminotransferase 12 U/L (0-33); Albumin Level 4.2 g/dL (3.5-5.2); Alkaline Phosphatase 55 U/L (35-105); Aspartate Amino Transferase 10 U/L (0-32); Blood Urea Nitrogen 20 mg/dL (6-20); Calcium 8.5 mg/dL (8.5-10.5); Carbon Dioxide 22 mmol/L (22-29); Chloride 98 mmol/L (98-107); Globulin 3.1 g/dL (1.3-4.6); Glomerular Filtration Rate 117.4 mL/min (90-130); Glucose 114 mg/dL (65-115); Lipase 29 U/L (13-60); Magnesium 1.2 mg/dL (1.7-2.3); Osmolality Calculated 289 mOsm/kg (285-295); Sodium 138 mmol/L (136-145); Total Bilirubin 0.5 mg/dL (0.15-1.2); Total Protein 7.3 g/dL (6.6-8.7)
[2022-06-12 00:54] LABS: Troponin(5th) Baseline 6 ng/L (0-10)
[2022-06-12 01:15] LABS: Anion Gap 20.5 (5-19)
[2022-06-12 01:16] LABS: Potassium 2.5 mmol/L (3.5-5.1)
[2022-06-12] MEDS: potassium chloride ER 20 mEq Tablet 40 MEQ PO (01:32)
[2022-06-12] MEDS: potassium chloride premix 100 ML 50 MEQ IV (01:32)
[2022-06-12 01:52] LABS: Basophils % 0.2 %; Eosinophils % 0.4 %; Hematocrit 40.5 % (37.0-47.0); Hemoglobin 13.7 g/dL (11.5-15.3); Lymphocytes # 1.4 10^3/uL (0.8-4.8); Lymphocytes % 14.9 %; Mean Corpuscular HGB Conc 33.8 g/dL (30.0-36.0); Mean Corpuscular Hemoglobin 28.5 pg (28.0-34.0); Mean Corpuscular Volume 84.4 fl (81-99); Mean Platelet Volume 8.7 fL (7.4-10.4); Monocytes # 0.5 10^3/uL (0.2-0.9); Monocytes % 5.6 %; Neutrophils # 7.27 10^3/uL (1.8-7.7); Neutrophils % 78.5 %; Nucleated Red Blood Cells % 0 %; Platelet Count 281 10^3/cmm (130-400); Red Cell Distribution Width 12.1 % (12.1-15.1); White Blood Count 9.3 10^3/uL (4.0-10.0)
--- NOTE | 2022-06-12 02:01 | ECG_ITS ---
[facility] Test Date: 2022-06-12 Pat Name: Devi Hernandez Department: Room: Gender: Female Coal Crusher Operator: : 1990 Requested By: Prudencio Rosa Order Number: [id number] Reading MD: Jennifer Wall M.D. Measurements Intervals [place] Rate: 81 P: 73 IN: 137 QRS: 81 QRSD: 92 T: 72 QT: 365 QTc: 426 Interpretive Statements SINUS RHYTHM NONSPECIFIC T-WAVE ABNORMALITY Compared to ECG 06/12/2022 00:05:43 Possible ischemia no longer present T-wave abnormality still present Electronically Signed On 06-12-2022 8:50:16 COAL MINER by Jennifer Wall M.D. [email or web address] [id number]
[2022-06-12 02:54] LABS: Troponin 5 2HR Delta 0 ABS# (0-10)
== END 2022-06-12 03:09 | disposition home or self-care (01) ==
PROVIDERS: Emergency Provider Emergency Medicine; PCP Nurse Practitioner Family
DX: E87.6 Hypokalemia (principal); E83.42 Hypomagnesemia
CPT/HCPCS: 71045; 80053; 83690; 83735; 84132; 84484; 85025; 93005; 96361; 96365; 96375; 99285; J2405; J3475; J3480; J7030

== ENCOUNTER 2023-03-16 22:26 | Observation (INO) | payer OTHER, BC, MEDICAID, SELFPAY ==
[2023-03-16 22:28] VITALS: BP 155/96; PULSE 129; RESP 18; TEMP 37.1; O2SAT 100
--- NOTE | 2023-03-16 22:31 | ECG_ITS ---
[facility] Test Date: 2023-03-16 Pat Name: Devi Hernandez Department: Room: 106 Gender: Female Zigzag Elastic Attacher: : 1990 Requested By: Prudencio Rosa Order Number: [id number] Michael MD: Gonzalo Ambrosio M.D. Measurements Intervals [place] Rate: 81 P: 33 MO: 108 QRS: 72 QRSD: 98 T: -68 QT: 403 QTc: 471 Interpretive Statements SINUS RHYTHM WITH SHORT MO INTERVAL ST DEVIATION AND MODERATE T-WAVE ABNORMALITY, CONSIDER ANTEROLATERAL ISCHEMIA [-0.1+ mV T-WAVE IN V3-V6] ST DEVIATION AND MODERATE T-WAVE ABNORMALITY, CONSIDER INFERIOR ISCHEMIA [-0.1+ mV T-WAVE IN II/aVF] Compared to ECG 06/12/2022 02:28:44 Short MO interval now present Possible ischemia now present T-wave abnormality still present Electronically Signed On 03-17-2023 9:55:54 CDT by Gonzalo Ambrosio M.D. [email or web address].[employer]/store/NU/[id number] f
--- NOTE | 2023-03-16 22:43 | XRR_ITS ---
PROCEDURE INFORMATION: Exam: XR Chest Exam date and time: 03/16/2023 10:48 PM Age: 32 years old Clinical indication: Left-sided; Patient HX: C/O left sided chest pain. History of bartter syndrome. ; Additional info: Cp TECHNIQUE: Imaging protocol: Radiologic exam of the chest. Views: 1 view. COMPARISON: CR XR chest 1V portable [id number] 06/12/2022 1:21 AM FINDINGS: Lungs: Unremarkable. No consolidation. Pleural spaces: Unremarkable. No pleural effusion. No pneumothorax. Heart/Mediastinum: Unremarkable. No cardiomegaly. Bones/joints: Unremarkable. XR/XR chest 1V portable [id number] IMPRESSION: No acute findings.
[2023-03-16 22:46] VITALS: BP 122/86; PULSE 88; RESP 20; O2SAT 98
[2023-03-16 23:06] LABS: Basophils % 0.5 %; Eosinophils # 0.1 10^3/uL (0.0-0.8); Eosinophils % 1.7 %; Hematocrit 43.1 % (37.0-47.0); Hemoglobin 14.8 g/dL (11.5-15.3); Lymphocytes # 1.3 10^3/uL (0.8-4.8); Lymphocytes % 21.5 %; Mean Corpuscular HGB Conc 34.3 g/dL (30.0-36.0); Mean Corpuscular Hemoglobin 28.1 pg (28.0-34.0); Mean Corpuscular Volume 81.9 fl (81-99); Mean Platelet Volume 8.8 fL (7.4-10.4); Monocytes # 0.5 10^3/uL (0.2-0.9); Monocytes % 8.3 %; Neutrophils # 3.98 10^3/uL (1.8-7.7); Neutrophils % 67.8 %; Nucleated Red Blood Cells % 0 %; Platelet Count 268 10^3/cmm (130-400); Red Blood Count 5.26 10^6/uL (4.1-5.3); Red Cell Distribution Width 12.2 % (12.1-15.1); White Blood Count 5.9 10^3/uL (4.0-10.0)
[2023-03-16 23:21] LABS: D Dimer 0.33 ug/mIFEU (0-0.59)
[2023-03-16 23:34] LABS: Alanine Aminotransferase 14 U/L (0-33); Albumin Level 4.9 g/dL (3.5-5.2); Alkaline Phosphatase 55 U/L (35-105); Aspartate Amino Transferase 16 U/L (0-32); Blood Urea Nitrogen 10 mg/dL (6-20); Calcium 9.8 mg/dL (8.5-10.5); Carbon Dioxide 24 mmol/L (22-29); Chloride 99 mmol/L (98-107); Globulin 2.6 g/dL (1.3-4.6); Glomerular Filtration Rate 98.3 mL/min (90-130); Glucose 118 mg/dL (65-115); Osmolality Calculated 286 mOsm/kg (285-295); Sodium 138 mmol/L (136-145); Total Bilirubin 0.4 mg/dL (0.15-1.2); Total Protein 7.5 g/dL (6.6-8.7); Troponin(5th) Baseline 6 ng/L (0-10)
[2023-03-16] MEDS: aspirin 81 mg Chew Tablet 324 MG PO (23:40)
[2023-03-17] VITALS (9 sets, daily range): BP systolic 101–115; BP diastolic 64–80; PULSE 69–83; RESP 15–20; TEMP 36.6–37.2; O2SAT 95–98
--- NOTE | 2023-03-17 00:43 | ECG_ITS ---
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 Measurements Intervals [place] Rate: 69 P: 51 IA: 138 QRS: 66 QRSD: 87 T: 41 QT: 403 QTc: 434 Interpretive Statements SINUS RHYTHM MODERATE T-WAVE ABNORMALITY, CONSIDER ANTERIOR ISCHEMIA [-0.1+ mV T-WAVE IN V3/V4] Compared to ECG 06/12/2022 02:28:44 Possible ischemia now present T-wave abnormality still present Electronically Signed On 03-17-2023 10:23:57 CDT by Gonzalo Ambrosio M.D. [email or web address]/[id number]
--- NOTE | 2023-03-17 01:11 | PC.NURSE ---
Assumed care from Lane rn. Rounded on patient and provided update on pending tests.
--- NOTE | 2023-03-17 01:13 | W.ED.CHESTPA ---
HPI - Chest Pain General: Chief Complaint: Chest Pain Stated Complaint: cp Time Seen by Provider: 03/16/23 22:50 Source: patient Mode of arrival: ambulatory Limitations: no limitations History of Present Illness: 32-year-old female who states that she is having chest pain roughly an hour ago. States it is a pressure type pain in the center of her chest she had nausea states the pain went to her neck and her left arm she is concerned that she is having a heart attack. States she was also having shortness of breath states that the pain has improved states she been getting worked up [place] had a echo done. She has been seeing cardiology there. Associated symptoms: Reports dyspnea; Deny abdominal pain, fever(s), nausea or vomiting Review of Systems Const: Denies: fever(s), chills, body aches or change in appetite ENMT: Denies: throat pain or dental pain Card: Reports: chest pain Resp: Reports: dyspnea GI: Denies: abdominal pain, nausea, vomiting or diarrhea : Denies: dysuria Musc: Denies: neck pain or back pain Skin/Breast: Denies: rash Neuro: Denies: headache(s) Psych: Denies: depression Fabián/Lymph: Denies: easy bruising All/Imm: Denies: urticaria PFSH ED PFSH: Medical History Bartter syndrome Social History Substance/Drug Use: never Physical Exam Const: COMMON NORMALS: patient oriented x3 GENERAL APPEARANCE: anxious HENMT: COMMON NORMALS: normocephalic and atraumatic HEAD & SCALP: normocephalic and atraumatic Eye: COMMON NORMALS: Equal, round and reactive pupils present and EOMs intact bilaterally PUPIL: Yes Equal, round and reactive pupils present Neck/C-Spine: COMMON NORMALS: full ROM and supple Chest: COMMONS NORMALS: normal inspection of the chest and normal palpation of entire chest wall Resp: COMMON NORMALS: normal respiratory effort, No retractions, No use of accessory muscles and clear to auscultation bilaterally AUSCULTATION: clear to auscultation bilaterally Cardio: COMMON NORMALS: regular rate, regular rhythm and No murmurs present (Cardio) RATE: regular rate RHYTHM: regular rhythm GI: COMMON NORMALS: Normal to inspection, nondistended, normoactive bowel sounds present, Soft to palpation, non-tender and no masses PALPATION: Yes Soft to palpation Extremity: COMMON NORMALS: normal to inspection and full ROM Neuro: COMMON NORMALS: patient oriented x3, moves all extremities and no focal motor deficits Psych: COMMON NORMALS: mental status grossly normal, Normal thought process present and cooperative THOUGHT PROCESS: Normal thought process present Skin: COMMON NORMALS: no rashes or lesions noted and no wounds GENERAL SKIN EXAM: no rashes or lesions noted Course Vital Signs: Vital signs: Vital Signs Temperature 98.8 F 03/16/23 22:28 Pulse Rate 69 03/17/23 01:16 Respiratory Rate 15 03/17/23 01:16 Blood Pressure 101/64 03/17/23 01:16 Pulse Oximetry 95 03/17/23 01:16 Oxygen Delivery Me thod Room Air 03/17/23 01:16 MDM - Chest Pain Medical Decision Making Patient presents chest pain is since resolved her troponins here are normal EKG she does have T wave inversions in the anterior leads. She tells me that she sees a director commercial sales in [place] and had an abnormal stress test and is supposed be scheduled for coronary CT. I requested records from [place] they sent me an echo but I was not able to get her stress test that was performed from them. With these findings and her T wave inversions will admit at this time for ACS rule out Lab Data 03/16/23 22:58 03/16/23 22:58 Radiology Impressions Chest X-Ray 03/16/23 22:43 IMPRESSION: No acute findings. Laboratory Results WBC 5.9 10^3/uL (4.0-10.0) 03/16/23 22:58 RBC 5.26 10^6/uL (4.1-5.3) 03/16/23 22:58 Hgb 14.8 g/dL (11.5-15.3) 03/16/23 22:58 Hct 43.1 % (37.0-47.0) 03/16/23 22:58 MCV 81.9 fl (81-99) 03/16/23 22:58 MCH 28.1 pg (28.0-34.0) 03/16/23 22:58 MCHC 34.3 g/dL (30.0-36.0) 03/16/23 22:58 RDW 12.2 % (12.1-15.1) 03/16/23 22:58 Plt Count 268 10^3/cmm (130-400) 03/16/23 22:58 MPV 8.8 fL (7.4-10.4) 03/16/23 22:58 Neut % (Auto) 67.8 % 03/16/23 22:58 Lymph % (Auto) 21.5 % 03/16/23 22:58 [place] % (Auto) 8.3 % 03/16/23 22:58 Eos % (Auto) 1.7 % 03/16/23 22:58 Baso % (Auto) 0.5 % 03/16/23 22:58 Neut # (Auto) 3.98 10^3/uL (1.8-7.7) 03/16/23 22:58 Lymph # (Auto) 1.3 10^3/uL (0.8-4.8) 03/16/23 22:58 [place] # (Auto) 0.5 10^3/uL (0.2-0.9) 03/16/23 22:58 Eos # (Auto) 0.1 10^3/uL (0.0-0.8) 03/16/23 22:58 Baso # (Auto) 0.0 10^3/uL (0.0-0.1) 03/16/23 22:58 Nucleated RBC % (auto) 0 % 03/16/23 22:58 Nucleated RBCs # 0.0 /100WBC 03/16/23 22:58 PT 13.50 SECONDS (12.1-14.9) 03/16/23 22:58 INR 1.00 (0.8-1.2) 03/16/23 22:58 D-Dimer 0.33 ug/mIFEU (0-0.59) 03/16/23 22:58 Sodium 138 mmol/L (136-145) 03/16/23 22:58 Potassium 3.0 mmol/L (3.5-5.1) L 03/16/23 22:58 Chloride 99 mmol/L (98-107) 03/16/23 22:58 Carbon Dioxide 24 mmol/L (22-29) 03/16/23 22:58 Anion Gap 18.0 (5-19) 03/16/23 22:58 BUN 10 mg/dL (6-20) 03/16/23 22:58 Creatinine 0.7 mg/dL (0.5-0.9) 03/16/23 22:58 GFR Calculation 98.3 mL/min (90-130) 03/16/23 22:58 Glucose 118 mg/dL (65-115) H 03/16/23 22:58 Calculated Osmolality 286 mOsm/kg (285-295) 03/16/23 22:58 Calcium 9.8 mg/dL (8.5-10.5) 03/16/23 22:58 Total Bilirubin 0.4 mg/dL (0.15-1.2) 03/16/23 22:58 AST 16 U/L (0-32) 03/16/23 22:58 ALT 14 U/L (0-33) 03/16/23 22:58 Alkaline Phosphatase 55 U/L (35-105) 03/16/23 22:58 Troponin T Baseline 6 ng/L (0-10) 03/16/23 22:58 Troponin T 120 Minute 6 ng/L (0-10) 03/17/23 00:46 Delta Troponin T 0 ABS# (0-10) 03/17/23 00:46 Total Protein 7.5 g/dL (6.6-8.7) 03/16/23 22:58 Albumin 4.9 g/dL (3.5-5.2) 03/16/23 22:58 Globulin 2.6 g/dL (1.3-4.6) 03/16/23 22:58 Discharge Plan Discharge Condition: Stable Prescriptions: No Action cyclobenzaprine 10 mg tablet 10 mg PO TID PRN (Reason: muscle spasm) Qty: 14 0RF Rx Instructions: Do not drive or operate equipment while using this medication. ondansetron 4 mg tablet,disintegrating 4 mg PO Q6H PRN (Reason: nausea and vomiting) Qty: 14 0RF Referrals: Armijo,CHUNG Jarrett [Primary Care Provider] - Coding Level of Care Code ED Managed Services Consultant for Melany Yip
[2023-03-17 01:49] LABS: Troponin 5 2HR 6 ng/L (0-10); Troponin 5 2HR Delta 0 ABS# (0-10)
--- NOTE | 2023-03-17 04:43 | ECG_ITS ---
[facility] Test Date: 2023-03-17 Pat Name: Devi Hernandez Department: Room: 106 Gender: Female Civil Attorney: : 1990 Requested By: Prudencio Rosa Order Number: [id number] Michael MD: Gonzalo Ambrosio M.D. Measurements Intervals [place] Rate: 68 P: 54 MN: 143 QRS: 69 QRSD: 93 T: 32 QT: 421 QTc: 449 Interpretive Statements SINUS RHYTHM POSSIBLE RIGHT VENTRICULAR CONDUCTION DELAY [RSR (QR) IN V1/V2] MODERATE T-WAVE ABNORMALITY, CONSIDER ANTERIOR ISCHEMIA [-0.1+ mV T-WAVE IN V3/V4] Compared to ECG 03/17/2023 00:48:40 No significant changes Electronically Signed On 03-17-2023 10:24:08 CDT by Gonzalo Ambrosio M.D. [id number]
--- NOTE | 2023-03-17 04:54 | PM.HP ---
Providers/Chief Complaint Admitting Physician: Rai Westbrook MD Primary Care Provider: Luiza Armijo APN Chief Complaint: cp History of Present Illness Devi Hernandez is a 32 year old female who was diagnosed with Bartter syndrome at age 15, takes potassium and magnesium supplement, she was referred to a vessel master this year by her rouge sifter and miller, 2 weeks ago patient had an echo done which showed preserved ejection fraction without wall motion abnormality, she also had exercise treadmill stress test, patient is stating that her heart rate went up high very quickly and her stress test was aborted in the middle, presented today with chief complaint of chest pain. Patient is stating that she was watching a movie with her , she was relaxing, she was not in any kind of stress, she was about to go to sleep when she started experiencing left-sided chest pain all of a sudden, intensity was 10/10, she thought she is having a heart attack and wanting to , at that point she was noticing numbness of her left arm, her pain was radiating towards her neck and left arm as well the intensity of the pain did decrease after 10 minutes however it was persistent until she was seen in the ER, patient is stating that a night before she was experiencing acid reflux which is unusual for her she took Tums, she was thinking probably this is associated with acid reflux but intensity of pain really scared her. She did not experience any nausea, vomiting, sweating. She has been experiencing hypokalemia related muscle weakness associated with fatigue and lethargy. She works at [employer]. She has never been diagnosed with any thyroid abnormality. In the ER she was given aspirin, EKG showing T wave inversion V1 to V4 patient is not experiencing active chest pain, I have given her potassium with GI cocktail, will consult cardiology in the morning I would not request another stress test or echo as it was done recently, we have faxed [facility] regarding stress test, echo report has been received Review of Systems Const: Denies: fever(s) Eyes: Denies: change in vision ENMT: Denies: throat pain Card: Reports: chest pain Resp: Denies: dyspnea GI: Denies: abdominal pain : Denies: flank pain Musc: Denies: neck pain Skin/Breast: Denies: rash Neuro: Denies: headache(s) Psych: Reports: anxiety Endo: Denies: polyuria Fabián/Lymph: Denies: easy bruising Medications/Allergies Home Medications Medication Instructions Recorded Confirmed Last Taken Type ondansetron 4 mg disintegrating 4 mg PO Q6H PRN nausea and 06/12/22 03/17/23 Unknown Rx tablet vomiting #14 tabs alprazolam 0.5 mg tablet (Xanax) 0.5 mg PO TID PRN Anxiety 03/17/23 03/17/23 Unknown History diltiazem HCl 120 mg 120 mg PO DAILY 03/17/23 03/17/23 Unknown History tablet,extended release 24 hr fluoxetine 40 mg capsule 40 mg PO BEDTIME 03/17/23 03/17/23 Unknown History magnesium oxide 400 mg PO BID 03/17/23 03/17/23 Unknown History potassium chloride 10 mEq 100 meq PO 5XD 03/17/23 03/17/23 Unknown History capsule,extended release sulfamethoxazole 800 1 tab PO BID 03/17/23 03/17/23 Unknown History mg-trimethoprim 160 mg tablet Allergies Allergy/AdvReac Type Severity Reaction Status Date / Time ibuprofen Allergy ALGY-Rash Verified 03/16/23 22:36 PFSH Acute PFSH: Medical History (Updated 03/17/23 @ 06:02 by Rai Westbrook MD) Bartter syndrome Vaginal delivery Social History (Updated 03/17/23 @ 05:58 by Rai Westbrook MD) Smoking and tobacco status: former smoker Alcohol intake: never Substance/Drug Use: never Vitals/I&O/Wt Last Vital Signs Temp 99.0 F 03/17/23 02:09 Pulse 71 03/17/23 04:16 Resp 17 03/17/23 04:16 BP 114/79 03/17/23 04:16 Pulse Ox 96 03/17/23 04:16 O2 Del Method Room Air 03/17/23 04:16 Weight last 48 hrs Weight 68.039 kg Physical Exam Narrative: S1, S2 GCS 15 Nonfocal neuro exam Euvolemic Pleasant and cooperative at the bedside Lower extremity no edema Doing well on room air No active chest pain EOMI, PERRLA Abdomen is soft Data 03/16/23 22:58 03/16/23 22:58 A&P Assessment and plan (1) Bartter syndrome: (2) Unstable angina: (3) Chronic hypokalemia: (4) Hypokalemia: (5) T wave inversion in EKG: Plan Unstable angina Troponins negative EKG showing T wave inversion V1 to V4 (I do not see a U wave pattern on the EKG) No active chest pain D-dimer unremarkable Hemodynamically stable Recent echo showed preserved ejection fraction, she had exercise treadmill stress test we are requesting records from [facility] I will hold off on repeating echo or stress test at this time I will keep patient n.p.o. for now We will consult vessel master in the morning Patient was scheduled to get cardiac CTA at [place] Check TSH levels Acute on chronic hypokalemia Check mag level Bartter syndrome Patient takes potassium 5 times a day Palpitations: She is on diltiazem 120 mg daily Full code N.p.o. for now DVT prophylaxis on board Attestations Medical Necessity Statement*: Anticipating discharge within 48 hours Diagnoses Bartter syndrome E26.81 Unstable angina I20.0 Chronic hypokalemia E87.6 Hypokalemia E87.6 T wave inversion in EKG R94.31
[2023-03-17 05:51] LABS: Estmated Average Glucose 108; Hemoglobin A1C 5.4 % (4.0-6.0)
[2023-03-17] MEDS: enoxaparin 40 mg/0.4 mL Syringe SUBCUT (05:58)
[2023-03-17] MEDS: aluminum-mag hydrox-simethicon 30 ML, sucralfate oral liq 1 GM PO (05:58)
[2023-03-17] MEDS: potassium chloride ER 20 mEq Tablet 40 MEQ PO ×2 (05:58→09:33)
[2023-03-17 06:04] LABS: Troponin 5 6HR 6 ng/L (0-10); Troponin 5 6HR Delta 0 ng/L (0-12)
[2023-03-17 06:06] LABS: Thyroid Stimulating Hormone 3.65 uIU/mL (0.27-4.20)
[2023-03-17 06:24] LABS: Magnesium 1.7 mg/dL (1.7-2.3)
--- NOTE | 2023-03-17 08:22 | PM.CONSULT ---
Providers/Reason For Consult Consulting Physician/Specialty*: Cardiovascular medicine Reason for Consult*: Chest pain Requesting Physician: Hospitalist Attending Physician: Aldo Villegas MD Primary Care Provider: Luiza Armijo APN History of Present Illness History of Present Illness Devi Hernandez is a 32 year old female without any history of cardiac disease. 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 About a year ago she was having episodes of anxiety and fast heart rates and her client associate sent her to a raisin separator operator in [place]. She was placed on diltiazem which she remains on today. Recently she has been having some funny sensations in her chest with palpitations, shortness of breath, sharp chest pain and sensations of numbness and tingling. She went back to see the raisin separator operator. On the of last month an echocardiogram was done which was normal. A stress test was apparently done. We have the report of the echo but not the stress test. The patient states that the stress test was stopped prematurely because her heart rate went too high, she became short of breath and almost passed out. She was to call and schedule a CT angiogram of her heart but has not yet done so. Last evening she was sitting watching TV with her when she had the sudden onset of left upper chest pain which was sharp. It did not radiate. She became very anxious with a racing heart and felt as though her the left side of her body was numb. She also had a significant numbness and tingling sensation down her left arm. Her drove her here to the hospital. Her troponins were 6. Her EKG shows T wave inversion which is slightly worse than what has been seen in the past. Chest pain was actually gone by the time she arrived here. She feels fine this morning. Review of Systems Narrative: Review of systems is negative Medications/Allergies Home Medications Medication Instructions Recorded Confirmed Last Taken Type ondansetron 4 mg disintegrating 4 mg PO Q6H PRN nausea and 06/12/22 03/17/23 Unknown Rx tablet vomiting #14 tabs alprazolam 0.5 mg tablet (Xanax) 0.5 mg PO TID PRN Anxiety 03/17/23 03/17/23 Unknown History diltiazem HCl 120 mg 120 mg PO DAILY 03/17/23 03/17/23 Unknown History tablet,extended release 24 hr fluoxetine 40 mg capsule 40 mg PO BEDTIME 03/17/23 03/17/23 Unknown History magnesium oxide 400 mg PO BID 03/17/23 03/17/23 Unknown History potassium chloride 10 mEq 100 meq PO 5XD 03/17/23 03/17/23 Unknown History capsule,extended release sulfamethoxazole 800 1 tab PO BID 03/17/23 03/17/23 Unknown History mg-trimethoprim 160 mg tablet Allergies Allergy/AdvReac Type Severity Reaction Status Date / Time ibuprofen Allergy ALGY-Rash Verified 03/16/23 22:36 Current Medications Generic Name Dose Route Start Last Admin Trade Name Freq PRN Reason Stop Dose Admin Enoxaparin Sodium 40 mg 03/17/23 05:00 03/17/23 05:58 Enoxaparin 40 Mg/0.4 Ml Syringe SUBCUT 40 mg Q24H COREY Administration PFSH Acute PFSH: Medical History (Updated 03/17/23 @ 08:30 by Gonzalo Ambrosio MD) Bartter syndrome Chest pain Vaginal delivery Social History (Updated 03/17/23 @ 05:58 by Rai Westbrook MD) Smoking and tobacco status: former smoker Alcohol intake: never Substance/Drug Use: never Vitals/I&O/Wt Last Vital Signs Temp 98.3 F 03/17/23 07:37 Pulse 78 03/17/23 07:37 Resp 16 03/17/23 07:37 BP 115/66 03/17/23 07:37 Pulse Ox 98 03/17/23 07:37 O2 Del Method Room Air 03/17/23 07:37 03/16/23 03/17/23 03/17/23 22:59 06:59 14:59 Intake Total 480 / 480 Balance 480 / 480 Weight last 48 hrs Weight 150 lb Physical Exam Narrative: GENERAL: In general she looks comfortable and is in no distress at rest HEENT: Exam within normal limits. NECK: Supple without jugular vein distention. The carotid upstroke is normal without bruits. BACK: Exam normal. LUNGS: Clear. HEART: Regular rate and rhythm. ABDOMEN: Benign without organomegaly or tenderness. EXTREMITIES: No edema. NEUROLOGIC: Exam normal. SKIN: Unremarkable. Data 03/16/23 22:58 03/16/23 22:58 A&P Assessment and plan (1) T wave inversion in EKG: (2) Unstable angina: (3) Bartter syndrome: (4) Chest pain: Plan I offered her conventional coronary angiography here. I carefully explained to her the difference between CT angiography and conventional coronary angiography. She is fearful of the arterial procedure and requests to follow-up with her doctors in [place] and have the CT angiogram. I am comfortable with this since her troponins are negative. She does have the EKG findings which are different than they were before however this is a fairly nonspecific finding. She may be discharged today. I encouraged her to call and get the test scheduled at [place]. Consult Attestations Medical Necessity Statement: May be discharged today and Moderate Time for a total of 30 minutes, includes reviewing past or interval history, examining/interviewing patient, counseling patient/family/other support, updating patient/family/other support, discussing plan of care with staff and communicating with other healthcare providers Diagnoses T wave inversion in EKG R94.31 Unstable angina I20.0 Bartter syndrome E26.81 Chest pain R07.9
--- NOTE | 2023-03-17 09:21 | PM.DCS ---
Discharge Providers Date of Admission: 03/17/23 02:08 Date of Discharge: March 17, 2023 Attending Provider at Admission: Rai Westbrook MD Attending Provider at Discharge: Aldo Villegas MD Consults: Cardiology Primary Care Provider: Luiza Armijo APN Diagnoses at Discharge Discharge Diagnosis (1) T wave inversion in EKG: Status: Acute (2) Unstable angina: Status: Deleted (3) Bartter syndrome: Status: Acute (4) Chest pain: Status: Inactive Reason for Visit Reason for Visit: cp Hospital Course Hospital Course Devi Hernandez is a 32 year old female with a past medical history significant for Bartter syndrome on potassium and magnesium who presented with severe chest pain occurring at rest while watching a movie. Initial EKG was concerning for T wave inversions. Troponin was negative. Patient admitted to observation. Cardiology consulted and made recommendations. Patient ultimately wanted to follow-up outpatient with her providers for coronary CTA. Symptoms improved. Patient discharged home in stable condition. Physical Exam Narrative: General: Patient is awake and alert. Head: Normocephalic. Atraumatic. EOM intact. Neck: No JVD. Cardiovascular: No peripheral edema. Lungs: Nonlabored. No accessory muscle use. On room air. Skin: No jaundice. No rashes. Abdomen: Normal bowel sounds, abdomen soft and nontender. Extremities: No cyanosis or clubbing. Neurological: Moves all 4 extremities. No myoclonus. Discharge Data Studies Completed and Pending Completed Studies During Hospitalization Category Date Time Status XR chest 1V portable [id number] Stat Exams 03/16/23 22:43 Completed Pending at discharge Category Date Time Status Sestamibi Stress Test Request Routine Exams 03/17/23 04:57 Stop Req Basic Metabolic Panel AM LABS Lab 03/18/23 04:00 Ordered C Reactive Protein AM LABS Lab 03/18/23 04:00 Ordered Magnesium AM LABS Lab 03/18/23 04:00 Ordered PHOS [Phosphorus] AM LABS Lab 03/18/23 04:00 Ordered Radiology Impressions Chest X-Ray 03/16/23 22:43 IMPRESSION: No acute findings. Laboratory Results WBC 5.9 10^3/uL (4.0-10.0) 03/16/23 22:58 RBC 5.26 10^6/uL (4.1-5.3) 08/13/23 22:58 Hgb 14.8 g/dL (11.5-15.3) 03/16/23 22:58 Hct 43.1 % (37.0-47.0) 03/16/23 22:58 MCV 81.9 fl (81-99) 03/16/23 22:58 MCH 28.1 pg (28.0-34.0) 03/16/23 22:58 MCHC 34.3 g/dL (30.0-36.0) 03/16/23 22:58 RDW 12.2 % (12.1-15.1) 03/16/23 22:58 Plt Count 268 10^3/cmm (130-400) 03/16/23 22:58 MPV 8.8 fL (7.4-10.4) 03/16/23 22:58 Neut % (Auto) 67.8 % 03/16/23 22:58 Lymph % (Auto) 21.5 % 03/16/23 22:58 [place] % (Auto) 8.3 % 03/16/23 22:58 Eos % (Auto) 1.7 % 03/16/23 22:58 Baso % (Auto) 0.5 % 03/16/23 22:58 Neut # (Auto) 3.98 10^3/uL (1.8-7.7) 03/16/23 22:58 Lymph # (Auto) 1.3 10^3/uL (0.8-4.8) 03/16/23 22:58 [place] # (Auto) 0.5 10^3/uL (0.2-0.9) 03/16/23 22:58 Eos # (Auto) 0.1 10^3/uL (0.0-0.8) 03/16/23 22:58 Baso # (Auto) 0.0 10^3/uL (0.0-0.1) 03/16/23 22:58 Nucleated RBC % (auto) 0 % 03/16/23 22:58 Nucleated RBCs # 0.0 /100WBC 03/16/23 22:58 PT 13.50 SECONDS (12.1-14.9) 03/16/23 22:58 INR 1.00 (0.8-1.2) 03/16/23 22:58 D-Dimer 0.33 ug/mIFEU (0-0.59) 03/16/23 22:58 Sodium 138 mmol/L (136-145) 03/16/23 22:58 Potassium 3.0 mmol/L (3.5-5.1) L 03/16/23 22:58 Chloride 99 mmol/L (98-107) 03/16/23 22:58 Carbon Dioxide 24 mmol/L (22-29) 03/16/23 22:58 Anion Gap 18.0 (5-19) 03/16/23 22:58 BUN 10 mg/dL (6-20) 03/16/23 22:58 Creatinine 0.7 mg/dL (0.5-0.9) 03/16/23 22:58 GFR Calculation 98.3 mL/min (90-130) 03/16/23 22:58 Glucose 118 mg/dL (65-115) H 03/16/23 22:58 Estimat Average Glucose 108 03/17/23 05:06 Hemoglobin A1c 5.4 % (4.0-6.0) 03/17/23 05:06 Calculated Osmolality 286 mOsm/kg (285-295) 03/16/23 22:58 Calcium 9.8 mg/dL (8.5-10.5) 03/16/23 22:58 Magnesium 1.7 mg/dL (1.7-2.3) 03/17/23 05:06 Total Bilirubin 0.4 mg/dL (0.15-1.2) 03/16/23 22:58 AST 16 U/L (0-32) 03/16/23 22:58 ALT 14 U/L (0-33) 03/16/23 22:58 Alkaline Phosphatase 55 U/L (35-105) 03/16/23 22:58 Troponin T Baseline 6 ng/L (0-10) 03/16/23 22:58 Troponin T 120 Minute 6 ng/L (0-10) 03/17/23 00:46 Delta Troponin T 0 ABS# (0-10) 03/17/23 00:46 Troponin T Hi Sens 6Hr 6 ng/L (0-10) 03/17/23 05:06 Troponin T Hi Sens 6Hr Delta 0 ng/L (0-12) 03/17/23 05:06 Total Protein 7.5 g/dL (6.6-8.7) 03/16/23 22:58 Albumin 4.9 g/dL (3.5-5.2) 03/16/23 22:58 Globulin 2.6 g/dL (1.3-4.6) 03/16/23 22:58 TSH 3.65 uIU/mL (0.27-4.20) 03/17/23 00:46 Vitals Last Vital Signs Temp 98.3 F 03/17/23 07:37 Pulse 83 03/17/23 08:38 Resp 16 03/17/23 08:38 BP 115/66 03/17/23 07:37 Pulse Ox 96 03/17/23 08:38 O2 Del Method Room Air 03/17/23 08:38 Discharge Plan Discharge Patient Disposition: Home Condition: Stable Prescriptions: Continued Xanax 0.5 mg Tablet 0.5 mg PO TID PRN (Reason: Anxiety) fluoxetine 40 mg capsule 40 mg PO BEDTIME potassium chloride 10 mEq capsule, extended release 100 meq PO 5XD diltiazem HCl 120 mg tablet extended release 24 hr 120 mg PO DAILY magnesium oxide 400 mg magnesium Tablet 400 mg PO BID sulfamethoxazole-trimethoprim 800-160 mg tablet 1 tab PO BID ondansetron 4 mg tablet,disintegrating 4 mg PO Q6H PRN (Reason: nausea and vomiting) Qty: 14 0RF Discharge Orders: Discharge Order (Routine); Ordered 03/17/23 Ordered By: Aldo Villegas Referrals: Luiza Armijo APN [Primary Care Provider] - 03/21/23 11:20 am Discharge Diet: Advance as tolerated and Usual diet Discharge Activity: Resume usual activity and Increase activity as tolerated Patient Instructions: Chest Pain (DC), Hypokalemia (DC), Chest Pain Stoplight, Opioid Safety Activity Restrictions/Additional Instructions: 1. Follow up with primary systems technologist 2. Follow up with PCP 3. Increase activity as tolerated. Discharge Attestations Time Spent in Discharge Care*: greater than 30 min Quality Metrics Clinical Quality Measures [ No reported AMI, CVA or VTE this stay] Coding Level of Care Code Acute Code for Chg Fwd Diagnoses T wave inversion in EKG R94.31 Unstable angina I20.0 Bartter syndrome E26.81 Chest pain R07.9
[2023-03-17] MEDS: magnesium oxide 400 mg tablet PO (09:33)
== END 2023-03-17 09:59 | disposition home or self-care (01) ==
LOC: ER 03-17 01:14 → CSU 03-17 06:19
PROVIDERS: Admitting Provider Internal Medicine; Emergency Provider Emergency Medicine; PCP Nurse Practitioner Family; Visit Provider Internal Medicine
DX: I20.0 Unstable angina (principal); E26.81 Bartter's syndrome; E87.6 Hypokalemia; R94.31 Abnormal electrocardiogram [ECG] [EKG]; Z87.891 Personal history of nicotine dependence
CPT/HCPCS: 36415; 71045; 80053; 83036; 83735; 84443; 84484; 85025; 85378; 85610; 93005; 96372; 99285; G0378; J1650

== ENCOUNTER 2023-06-23 20:05 | Emergency (ER) | payer OTHER, BC, MEDICAID, SELFPAY ==
[2023-06-23 20:12] VITALS: BP 118/87; PULSE 103; RESP 20; TEMP 36.8; O2SAT 97; BMI 27.4
--- NOTE | 2023-06-23 20:25 | XRR_ITS ---
PROCEDURE INFORMATION: Exam: XR Chest Exam date and time: 06/23/2023 8:30 PM Age: 33 years old Clinical indication: Pain; Chest pressure; Additional info: Chest pain TECHNIQUE: Imaging protocol: Radiologic exam of the chest. Views: 1 view. COMPARISON: CR XR chest 1V portable [id number] 03/16/2023 10:48 PM FINDINGS: Lungs: Unremarkable. No consolidation. Pleural spaces: Unremarkable. No pleural effusion. No pneumothorax. Heart/Mediastinum: Unremarkable. No cardiomegaly. Bones/joints: Unremarkable. XR/XR chest 1V portable [id number] IMPRESSION: No acute findings.
--- NOTE | 2023-06-23 20:26 | ED.C_ITS ---
HPI - Psych General: Chief Complaint: Psychiatric Symptoms Stated Complaint: Migraine Headache\Body Aches\Chest Pains Time Seen by Provider: 06/23/23 20:25 History of Present Illness: Patient presents to the ER with complaints of migraine for the last 2 weeks. 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 Patient reports feeling nausea and vomiting she going to pass out. Patient said this is been so bothersome that she feels like she is does not to be here anymore. However she denies suicidal ideation or homicidal ideation when directly asked. Review of Systems General: Reports: 10 or more systems reviewed and unremarkable except in HPI and below PFSH ED PFSH: Medical History Bartter syndrome Chest pain Vaginal delivery Social History Smoking and tobacco/nicotine status: former use of tobacco/nicotine Alcohol intake: never Substance/Drug Use: never Physical Exam Const: COMMON NORMALS: no acute distress, average body habitus, patient oriented x3, no limitations, healthy appearing, alert and well nourished HENMT: COMMON NORMALS: normocephalic, atraumatic, hearing grossly normal bilaterally, external ears normal, Normal external nose present, moist oral mucous membranes and oropharynx normal HEAD & SCALP: normocephalic and atraumatic NOSE: Normal external nose present EXTERNAL EAR: Yes external ears normal Eye: COMMON NORMALS: Equal, round and reactive pupils present, EOMs intact bilaterally, conjunctivae normal and no scleral icterus CONJUNCTIVA: Yes conjunctivae normal PUPIL: Yes Equal, round and reactive pupils present Neck/C-Spine: COMMON NORMALS: full ROM, no lymphadenopathy, supple, no meningeal signs, no JVD and Thyroid normal THYROID: Thyroid normal Chest: COMMONS NORMALS: normal inspection of the chest and normal palpation of entire chest wall Resp: COMMON NORMALS: normal respiratory effort, No retractions, No use of accessory muscles and clear to auscultation bilaterally AUSCULTATION: clear to auscultation bilaterally Cardio: COMMON NORMALS: no JVD, regular rate, regular rhythm, S1 normal heart sound present, S2 normal heart sound present, No gallops present (Cardio), No clicks present (Cardio), No murmurs present (Cardio) and No rub (Cardio) RATE: regular rate RHYTHM: regular rhythm HEART SOUNDS: S1 normal heart sound present and S2 normal heart sound present GI: COMMON NORMALS: Normal to inspection, nondistended, normoactive bowel sounds present Neuro: COMMON NORMALS: patient oriented x3 SENSORIUM/ORIENTATION: Yes alert MENINGEAL SIGNS: Yes no meningeal signs Course Vital Signs: Vital signs: Vital Signs Temperature 98.3 F 06/23/23 20:12 Pulse Rate 86 06/23/23 20:38 Respiratory Rate 16 06/23/23 20:38 Blood Pressure 122/84 06/23/23 20:38 Pulse Oximetry 97 06/23/23 20:38 Oxygen Delivery Me thod Room Air 06/23/23 20:38 MDM - Psych Medical Decision Making Patient presents to the ER with headache and overall body aches and pains. Patient voiced to the nurses that she does not want to be here anymore but has no plan or intent. Patient did not voice this to me and when directly ask if she was suicidal she said no. Patient was worked up with lab EKG chest x-ray and was given 1 L bolus of fluid, 10 of Reglan, 1 g of magnesium, 50 of Benadryl, 10 of dexamethasone. After infusion patient rated her headache a 3 out of 10. Patient be discharged home to follow-up with her PCP for further evaluation and testing. Differential Diagnosis Unlikely acute psychosis, chronic schizophrenia, suicidal ideation, bipolar disorder, depression, drug-induced psychotic disorder or acute anxiety Medical Records I reviewed the patient's medical records. Lab Data I reviewed the patient's lab results. 06/23/23 20:44 06/23/23 20:44 Radiology Impressions Chest X-Ray 06/23/23 20:25 IMPRESSION: No acute findings. Laboratory Results WBC 6.95 10^3/uL (3.29-11.43) 06/23/23 20:44 RBC 5.19 10^6/uL (3.85-5.65) 06/23/23 20:44 Hgb 14.60 g/dL (11.27-16.99) 06/23/23 20:44 Hct 42.0 % (36-47) 06/23/23 20:44 MCV 80.9 fl (85-98) L 06/23/23 20:44 MCH 28.1 pg (27-33) 06/23/23 20:44 MCHC 34.8 g/dL (30-55) 06/23/23 20:44 RDW 12.1 % (12.1-15.1) 06/23/23 20:44 Plt Count 319 10^3/cmm (157-399) 06/23/23 20:44 MPV 9.1 fL (7.4-10.4) 06/23/23 20:44 Neut % (Auto) 57.2 % 06/23/23 20:44 Lymph % (Auto) 33.5 % 06/23/23 20:44 [place] % (Auto) 6.6 % 06/23/23 20:44 Eos % (Auto) 1.7 % 06/23/23 20:44 Baso % (Auto) 0.9 % 06/23/23 20:44 Neut # (Auto) 3.97 10^3/uL (1.8-7.7) 06/23/23 20:44 Lymph # (Auto) 2.3 10^3/uL (0.8-4.8) 06/23/23 20:44 [place] # (Auto) 0.5 10^3/uL (0.2-0.9) 06/23/23 20:44 Eos # (Auto) 0.1 10^3/uL (0.0-0.8) 06/23/23 20:44 Baso # (Auto) 0.1 10^3/uL (0.0-0.1) 06/23/23 20:44 Nucleated RBC % (auto) 0 % 06/23/23 20:44 Nucleated RBCs # 0.0 /100WBC 06/23/23 20:44 Sodium 143 mmol/L (136-145) 06/23/23 20:44 Potassium 3.2 mmol/L (3.5-5.1) L 06/23/23 20:44 Chloride 104 mmol/L (98-107) 06/23/23 20:44 Carbon Dioxide 24 mmol/L (22-29) 06/23/23 20:44 Anion Gap 18.2 (5-19) 06/23/23 20:44 BUN 16 mg/dL (6-20) 06/23/23 20:44 Creatinine 0.7 mg/dL (0.5-0.9) 06/23/23 20:44 GFR Calculation 97.6 mL/min (90-130) 06/23/23 20:44 Glucose 125 mg/dL (65-115) H 06/23/23 20:44 Calculated Osmolality 299 mOsm/kg (285-295) H 06/23/23 20:44 Calcium 9.9 mg/dL (8.5-10.5) 06/23/23 20:44 Magnesium 1.6 mg/dL (1.7-2.3) L 06/23/23 20:44 Total Bilirubin 0.4 mg/dL (0.15-1.2) 06/23/23 20:44 AST 12 U/L (0-32) 06/23/23 20:44 ALT 12 U/L (0-33) 06/23/23 20:44 Alkaline Phosphatase 58 U/L (35-105) 06/23/23 20:44 Troponin T Baseline < 6 ng/L (0-10) 06/23/23 20:44 Troponin T 120 Minute 6.00 ng/L (0-10) 06/23/23 22:49 Total Protein 7.5 g/dL (6.6-8.7) 06/23/23 20:44 Albumin 4.8 g/dL (3.5-5.2) 06/23/23 20:44 Globulin 2.7 g/dL (1.3-4.6) 06/23/23 20:44 HCG, Qual Negative (Negative) 06/23/23 21:34 Urine Color Yellow (Yellow) 06/23/23 21:34 Urine Appearance Sl hazy (CLEAR) A 06/23/23 21:34 Urine pH 8 (5-7) H 06/23/23 21:34 Ur Specific [place] 1.005 (1.005-1.030) 06/23/23 21:34 Urine Protein Neg (Negative) 06/23/23 21:34 Urine Glucose (UA) Norm (Normal) 06/23/23 21:34 Urine Ketones Negative (Negative) 06/23/23 21:34 Urine Blood Neg (Negative) 06/23/23 21:34 Urine Nitrate Negative (Negative) 06/23/23 21:34 Urine Bilirubin Neg (Negative) 06/23/23 21:34 Prot Sulfosalicylic Acd Negative (Negative) 06/23/23 21:34 Urine Urobilinogen Norm mg/dL (Negative) 06/23/23 21:34 Ur Leukocyte Esterase 2+ (Negative) H 06/23/23 21:34 Urine RBC 5-10 /hpf (0-2) H 06/23/23 21:34 Urine WBC 10-15 /hpf (0-5) H 06/23/23 21:34 Ur Squamous Epith Cells 25-40 /hpf (0-5) H 06/23/23 21:34 Amorphous Sediment 1+ /hpf 06/23/23 21:34 Urine Bacteria 1+ /hpf (NONE) H 06/23/23 21:34 Salicylates < 0.3 mg/dL (3-10) L 06/23/23 20:44 Urine Opiates Screen Negative ng/mL (Negative) 06/23/23 21:34 Acetaminophen < 5.0 ug/mL (10-30) L 06/23/23 20:44 Ur Barbiturates Screen Positive ng/mL (Negative) H 06/23/23 21:34 Ur Phencyclidine Scrn Negative ng/mL (Negative) 06/23/23 21:34 Ur Amphetamines Screen Negative ng/mL (Negative) 06/23/23 21:34 U Benzodiazepines Scrn Positive ng/mL (Negative) H 06/23/23 21:34 Urine Cocaine Screen Negative ng/mL (Negative) 06/23/23 21:34 U Marijuana (THC) Screen Negative ng/mL (Negative) 06/23/23 21:34 Ethyl Alcohol < 10 mg/dL (0-10) 06/23/23 20:44 All radiology interpretation(s) finalized by discharge EKG Data EKG 1: I personally reviewed and interpreted this EKG as follows: EKG interpretation date: 06/23/23 EKG interpretation time: 20:10 Prior EKG tracings: not available for review Interpretation: EKG showed ventricular rate 85 beats minute, CO interval 119, QRS duration 98, QTc of 419, sinus rhythm with short CO interval, ST deviation moderate T wave abnormality EKG 2: I personally reviewed and interpreted this EKG as follows: EKG interpretation date: 06/23/23 EKG interpretation time: 23:32 Prior EKG tracings: available for review Interpretation: EKG shows ventricular rate 82 bpm, CO interval 122, QRS duration 103, QTc of 440, sinus rhythm, nonspecific ST-T wave abnormality Discharge Plan Discharge Patient Disposition: Home Clinical Impression: Hypokalemia, Hypomagnesemia Headache, migraine Qualifiers: Migraine type: other Status migrainosus presence: without status migrainosus Intractability: not intractable Qualified Code(s): G43.809 - Other migraine, not intractable, without status migrainosus Condition: Stable Prescriptions: No Action Xanax 0.5 mg Tablet 0.5 mg PO TID PRN (Reason: Anxiety) fluoxetine 40 mg capsule 40 mg PO BEDTIME potassium chloride 10 mEq capsule, extended release 100 meq PO 5XD diltiazem HCl 120 mg tablet extended release 24 hr 120 mg PO DAILY magnesium oxide 400 mg magnesium Tablet 400 mg PO BID sulfamethoxazole-trimethoprim 800-160 mg tablet 1 tab PO BID ondansetron 4 mg tablet,disintegrating 4 mg PO Q6H PRN (Reason: nausea and vomiting) Qty: 14 0RF Discharge Orders: Discharge ED (Routine); Ordered 06/23/23 Ordered By: Jamel Reese Referrals: Luiza Armijo APN [Primary Care Provider] - 1 week Patient Instructions: Migraine Headache (ED), Hypokalemia (ED), Hypomagnesemia (ED) Activity Restrictions/Additional Instructions: Lab work in ER showed your potassium magnesium was previousMildly low. Please continue the medicine as directed. Please follow-up with your family practice physician with the next 7 to 10 days for further evaluation testing. Coding Level of Care Code ED Register Of Wills for Melany Yip
[2023-06-23 20:38] VITALS: BP 122/84; PULSE 86; RESP 16; O2SAT 97
[2023-06-23 20:59] LABS: Basophils # 0.1 10^3/uL (0.0-0.1); Basophils % 0.9 %; Eosinophils # 0.1 10^3/uL (0.0-0.8); Eosinophils % 1.7 %; Lymphocytes # 2.3 10^3/uL (0.8-4.8); Lymphocytes % 33.5 %; Mean Corpuscular HGB Conc 34.8 g/dL (30-55); Mean Corpuscular Hemoglobin 28.1 pg (27-33); Mean Corpuscular Volume 80.9 fl (85-98); Mean Platelet Volume 9.1 fL (7.4-10.4); Monocytes # 0.5 10^3/uL (0.2-0.9); Monocytes % 6.6 %; Neutrophils # 3.97 10^3/uL (1.8-7.7); Neutrophils % 57.2 %; Nucleated Red Blood Cells % 0 %; Platelet Count 319 10^3/cmm (157-399); Red Blood Count 5.19 10^6/uL (3.85-5.65); Red Cell Distribution Width 12.1 % (12.1-15.1); White Blood Count 6.95 10^3/uL (3.29-11.43)
[2023-06-23 21:19] LABS: Troponin(5th) Baseline < 6 ng/L (0-10)
--- NOTE | 2023-06-23 21:20 | PC.NURSE ---
Dr Reese instructed this nurse to hold off on dressing patient/initiating all suicide precautions until otherwise instructed.
[2023-06-23 21:24] LABS: Alanine Aminotransferase 12 U/L (0-33); Albumin Level 4.8 g/dL (3.5-5.2); Alkaline Phosphatase 58 U/L (35-105); Anion Gap 18.2 (5-19); Aspartate Amino Transferase 12 U/L (0-32); Blood Urea Nitrogen 16 mg/dL (6-20); Calcium 9.9 mg/dL (8.5-10.5); Carbon Dioxide 24 mmol/L (22-29); Chloride 104 mmol/L (98-107); Globulin 2.7 g/dL (1.3-4.6); Glomerular Filtration Rate 97.6 mL/min (90-130); Glucose 125 mg/dL (65-115); Magnesium 1.6 mg/dL (1.7-2.3); Osmolality Calculated 299 mOsm/kg (285-295); Potassium 3.2 mmol/L (3.5-5.1); Sodium 143 mmol/L (136-145); Total Bilirubin 0.4 mg/dL (0.15-1.2); Total Protein 7.5 g/dL (6.6-8.7)
[2023-06-23 21:37] LABS: Acetaminophen < 5.0 ug/mL (10-30); Alcohol Level < 10 mg/dL (0-10); Salicylate < 0.3 mg/dL (3-10)
[2023-06-23 21:41] LABS: HCG Qualitative Urine. Negative (Negative)
[2023-06-23 21:54] LABS: Add Urine Culture? No; Add Urine Microscopic? YES; Amorphous Sediment Urine 1+ /hpf; Amphetamines Screen Urine Negative (Negative); Bacteria Urine 1+ /hpf; Barbiturates Screen Urine Positive (Negative); Benzodiazepines Screen Urine Positive (Negative); Bilirubin Urine Neg (Negative); Blood Urine Neg (Negative); Cocaine Screen Urine Negative (Negative); Glucose Urine UA Norm (Normal); Ketones Urine Negative (Negative); Leukocyte Esterase Urine 2+ (Negative); Nitrate Urine Negative (Negative); Opiate Screen Urine Negative (Negative); PCP Screen Urine Negative (Negative); Protein Urine Neg (Negative); Specific Gravity, Urine 1.005 (1.005-1.030); Squamous Epithelial Cell Urine 25-40 /hpf (0-5); Sulfosalicylic Acid Urine Negative (Negative); THC Screen Urine Negative (Negative); Urine Appearance SL Hazy (CLEAR); Urine Color Yellow (Yellow); Urobilinogen Urine Norm (Negative); pH Urine 8 (5-7)
[2023-06-23] MEDS: magnesium sulfate premix 1 GM/100 ML PIGGYBACK IV (22:56)
[2023-06-23] MEDS: sodium chloride 0.9% 1,000 ML 999 ML IV (22:56)
[2023-06-23] MEDS: dexamethasone 10 mg/mL INJ IM (22:56)
[2023-06-23] MEDS: diphenhydrAMINE 50 mg/mL SDV 1mL IVP (22:56)
[2023-06-23] MEDS: metoclopramide 5 mg/mL SDV 2 mL 10 MG IVP (22:57)
--- NOTE | 2023-06-23 23:32 | ECG_ITS ---
[facility] Test Date: 2023-06-23 Pat Name: Devi Hernandez Department: Room: Gender: Female Information Assurance Officer: : 1990 Requested By: Jamel Reese Order Number: [id number] Michael MD: Fausto De La O M.D. Measurements Intervals [place] Rate: 82 P: 68 [place]: 122 QRS: 74 QRSD: 103 T: 48 QT: 402 QTc: 470 Interpretive Statements SINUS RHYTHM NONSPECIFIC ST & T-WAVE ABNORMALITY Compared to ECG 03/17/2023 04:54:16 No significant change Electronically Signed On 06-24-2023 14:58:37 NETTING WEAVER by Fausto De La O M.D. [email or web address] medical centerAdial Pharmaceuticalsnewark hospitalTMJ [email or web address]/store/OM/[id number]
[2023-06-23 23:48] LABS: Troponin 5 2HR < 6.0 ng/L (0-10); Troponin 5 2HR Delta 0 ABS# (0-10)
== END 2023-06-24 00:25 | disposition home or self-care (01) ==
PROVIDERS: Emergency Provider Emergency Medicine; PCP Nurse Practitioner Family
DX: G43.809 Other migraine, not intractable, without status migrainosus (principal); E87.6 Hypokalemia; E83.42 Hypomagnesemia; Z87.891 Personal history of nicotine dependence
CPT/HCPCS: 36415; 71045; 80053; 80306; 80307; 81001; 81025; 83735; 84484; 85025; 93005; 93010; 96372; 96374; 96375; 99285; J1100; J1200; J2765; J3475; J7030

== ENCOUNTER 2023-10-11 12:29 | Emergency (ER) | payer BC, MEDICAID, SELFPAY ==
[2023-10-11 12:30] VITALS: BMI 27.3
[2023-10-11 12:34] VITALS: BP 118/83; PULSE 102; RESP 16; TEMP 37.1; O2SAT 96
--- NOTE | 2023-10-11 12:41 | XRR_ITS ---
PROCEDURE INFORMATION: Exam: XR Chest Exam date and time: 10/11/2023 12:50 PM Age: 33 years old Clinical indication: Dyspnea and shortness of breath; Additional info: Syncope TECHNIQUE: Imaging protocol: Radiologic exam of the chest. Views: 1 view. COMPARISON: CR (CHEST, ) 06/23/2023 8:30 PM FINDINGS: Lungs: Unremarkable. No consolidation. Pleural spaces: Unremarkable. No pleural effusion. No pneumothorax. Heart/Mediastinum: Unremarkable. No cardiomegaly. Bones/joints: Unremarkable. XR/XR chest 1V portable [id number] IMPRESSION: No acute findings.
--- NOTE | 2023-10-11 12:47 | ED_ITS ---
HPI - Syncope 2 General: Chief Complaint: Syncope Stated Complaint: SYNCOPE Time Seen by Provider: 10/11/23 12:45 History of Present Illness: 33-year-old female presents to the emerg ency department via EMS personnel. 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 She states she has been battling a migraine for the previous 2 weeks and has seen her primary care provider as well as urgent care with minimal to no relief of her headache. She denies neck pain or recent trauma to her neck. She states she did see a chiropractor yesterday and he told her that her neck was significant adjustment and that may be contributing to her headaches. 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 She states that she recently was told that her primary care provider had placed a neurology referral for her. She states her headache at present is a 8 out of 10, throbbing to the left side of her head and she also endorses photosensitivity. She denies nuchal rigidity, fevers chills or night sweats. Associated symptoms: Reports headache(s) Review of Systems 2 General: Reports: 10 or more systems reviewed and unremarkable except in HPI and below Card: Reports: syncope Neuro: Reports: headache(s) PFS ED 2 PFSH: Medical History Bartter syndrome Chest pain Vaginal delivery Social History Smoking and tobacco/nicotine status: former use of tobacco/nicotine Alcohol intake: never Substance/Drug Use: never Physical Exam 2 Narrative: EXAM NARRATIVE: Constitutional: the patient appears well nourished and with normal development. Vital signs reviewed as documented. HENMT: Normocephalic, atraumatic. External ears normal appearance without drainage. Nose without drainage, normal appearance. Mucus membranes moist. Neck is supple, No jugular venous distension, trachea is midline, no appreciable carotid bruits. No lymphadenopathy. No meningeal signs. Flexion, extension and lateral rotation is without pain. Eyes: Pupils are equal, round, reactive to light and accommodation. No scleral icterus. Extra-ocular movement are intact. Thorax is symmetrical and with equal rise and fall with respirations. Resp: Lungs are clear to auscultation. No wheezes, rales, crackles or ronchi at present. Cardio: Regular rate and rhythm. Positive S1, S2. No appreciable murmurs, rubs or gallops. GI: Abdominal exam reveals normal bowel sounds to all quadrants. No organomegaly. No obvious palpable masses noted. No hepatomegally appreciated. Soft, non-tender to palpation. Extremity: Extremities are non-edematous and both femoral and pedal pulses are 2+ and equal bilaterally. Moves all extremities well, sensation in all extremities. Neuro: Alert and oriented x4, person, place, time and situation. Cranial nerves II through XII are grossly intact, there is no focal neurological deficits that I can appreciate at present. Sensation intact to all extremities. 2-point discrimination intact. Light touch intact to all extremities. Motor strength in the upper and lower extremities are equal and bilateral 5/5. Psych: Cooperative, calm, normal thought process, appropriate judgment. Skin: No lesions, rashes. No gross abnormalities noted. Back: Symmetrical, no obvious deformity, No CVA tenderness Course 2 Vital Signs: Vital signs: Vital Signs Temperature 98.7 F 10/11/23 12:34 Pulse Rate 102 H 10/11/23 12:34 Respiratory Rate 16 10/11/23 12:34 Blood Pressure 118/83 10/11/23 12:34 Pulse Oximetry 96 10/11/23 12:34 Oxygen Delivery Me thod Room Air 10/11/23 12:34 MDM - Syncope Medical Decision Making Physical exam completed and documented I will obtain a CBC, CMP, urinalysis, chest x-ray and EKG for evaluation. Given the patient's chronic migraine I will provide her IV fluid rehydration as well as IV medications to help abort her headache. Medical Records I reviewed the patient's medical records. Lab Data I reviewed the patient's lab results. 10/11/23 13:26 10/11/23 13:26 Radiology Impressions Chest X-Ray 10/11/23 12:41 IMPRESSION: No acute findings. Laboratory Results WBC 8.34 10^3/uL (3.29-11.43) 10/11/23 13:26 RBC 5.13 10^6/uL (3.85-5.65) 10/11/23 13:26 Hgb 14.40 g/dL (11.27-16.99) 10/11/23 13:26 Hct 43.5 % (36-47) 10/11/23 13:26 MCV 84.8 fl (85-98) L 10/11/23 13:26 MCH 28.1 pg (27-33) 10/11/23 13:26 MCHC 33.1 g/dL (30-55) 10/11/23 13:26 RDW 12.2 % (12.1-15.1) 10/11/23 13:26 Plt Count 296 10^3/cmm (157-399) 10/11/23 13:26 MPV 8.9 fL (7.4-10.4) 10/11/23 13:26 Neut % (Auto) 79.3 % 10/11/23 13:26 Lymph % (Auto) 14.5 % 10/11/23 13:26 [place] % (Auto) 5.4 % 10/11/23 13:26 Eos % (Auto) 0.1 % 10/11/23 13:26 Baso % (Auto) 0.5 % 10/11/23 13:26 Neut # (Auto) 6.61 10^3/uL (1.8-7.7) 10/11/23 13:26 Lymph # (Auto) 1.2 10^3/uL (0.8-4.8) 10/11/23 13:26 [place] # (Auto) 0.5 10^3/uL (0.2-0.9) 10/11/23 13:26 Eos # (Auto) 0.0 10^3/uL (0.0-0.8) 10/11/23 13:26 Baso # (Auto) 0.0 10^3/uL (0.0-0.1) 10/11/23 13:26 Nucleated RBC % (auto) 0 % 10/11/23 13:26 Nucleated RBCs # 0.0 /100WBC 10/11/23 13:26 Sodium 138 mmol/L (136-145) 10/11/23 13:26 Potassium 2.7 mmol/L (3.5-5.1) L* 10/11/23 13:26 Chloride 99 mmol/L (98-107) 10/11/23 13:26 Carbon Dioxide 25 mmol/L (22-29) 10/11/23 13:26 Anion Gap 16.7 (5-19) 10/11/23 13:26 BUN 15 mg/dL (6-20) 10/11/23 13:26 Creatinine 0.6 mg/dL (0.5-0.9) 10/11/23 13:26 GFR Calculation 116.6 mL/min (90-130) 10/11/23 13:26 Glucose 94 mg/dL (65-115) 10/11/23 13:26 POC Glucose 102 mg/dL (70-110) 10/11/23 13:37 Calculated Osmolality 287 mOsm/kg (285-295) 10/11/23 13:26 Calcium 9.3 mg/dL (8.5-10.5) 10/11/23 13:26 Total Bilirubin 0.4 mg/dL (0.15-1.2) 10/11/23 13:26 AST 13 U/L (0-32) 10/11/23 13:26 ALT 13 U/L (0-33) 10/11/23 13:26 Alkaline Phosphatase 64 U/L (35-105) 10/11/23 13:26 Total Protein 7.8 g/dL (6.6-8.7) 10/11/23 13:26 Albumin 4.5 g/dL (3.5-5.2) 10/11/23 13:26 Globulin 3.3 g/dL (1.3-4.6) 10/11/23 13:26 HCG, Qual Negative (Negative) 10/11/23 14:32 Urine Color Yellow (Yellow) 10/11/23 14:32 Urine Appearance Clear (CLEAR) 10/11/23 14:32 Urine pH 6.5 (5-7) 10/11/23 14:32 Ur Specific [place] 1.010 (1.005-1.030) 10/11/23 14:32 Urine Protein Neg (Negative) 10/11/23 14:32 Urine Glucose (UA) Norm (Normal) 10/11/23 14:32 Urine Ketones Negative (Negative) 10/11/23 14:32 Urine Blood Neg (Negative) 10/11/23 14:32 Urine Nitrate Negative (Negative) 10/11/23 14:32 Urine Bilirubin Neg (Negative) 10/11/23 14:32 Urine Urobilinogen Norm mg/dL (Negative) 10/11/23 14:32 Ur Leukocyte Esterase 2+ (Negative) H 10/11/23 14:32 Urine RBC None /hpf (0-2) 10/11/23 14:32 Urine WBC 5-10 /hpf (0-5) H 10/11/23 14:32 Ur Squamous Epith Cells None /hpf (0-5) 10/11/23 14:32 Amorphous Sediment Not Reportable 10/11/23 14:32 Urine Bacteria 1+ /hpf (NONE) H 10/11/23 14:32 Urine Opiates Screen Negative ng/mL (Negative) 10/11/23 14:32 Ur Barbiturates Screen Positive ng/mL (Negative) H 10/11/23 14:32 Ur Phencyclidine Scrn Negative ng/mL (Negative) 10/11/23 14:32 Ur Amphetamines Screen Negative ng/mL (Negative) 10/11/23 14:32 U Benzodiazepines Scrn Positive ng/mL (Negative) H 10/11/23 14:32 Urine Cocaine Screen Negative ng/mL (Negative) 10/11/23 14:32 U Marijuana (THC) Screen Negative ng/mL (Negative) 10/11/23 14:32 All radiology interpretation(s) finalized by discharge EKG Data EKG 1: Interpretation: Twelve-lead EKG obtained at 1247 and reviewed at 1250 demonstrates sinus rhythm with a ventricular rate of 94 bpm, NH interval 153, QRS duration 97 QT 312 QTc [address] elevation or depression to demonstrate acute ischemia or infarction at present Discharge Plan Discharge Patient Disposition: Home Clinical Impression: Pott's disease, Vasovagal syncope, Hypokalemia Migraine headache Qualifiers: Migraine type: migraine (< 15 days per month) without aura Status migrainosus presence: without status migrainosus Intractability: not intractable Qualified Code(s): G43.009 - Migraine without aura, not intractable, without status migrainosus Condition: Stable Prescriptions: No Action alprazolam [Xanax] 0.5 mg Tablet 0.5 mg PO TID PRN (Reason: Anxiety) fluoxetine 40 mg capsule 40 mg PO BEDTIME potassium chloride 10 mEq capsule, extended release 100 meq PO 5XD magnesium oxide 400 mg magnesium Tablet 400 mg PO BID ondansetron 8 mg tablet,disintegrating 8 mg PO .Q4-6H PRN (Reason: Nausea And Vomiting) diltiazem HCl 60 mg capsule,extended release 12 hr 60 mg PO BID cyclobenzaprine 10 mg tablet 10 mg PO DAILY PRN (Reason: muscle spasms) Drysol Dab-O-Matic 20 % solution See Rx Instructions .ROUTE .COMPLEX Rx Instructions: 1 applic topically twice weekly at bedtime. Imitrex 50 mg tablet See Rx Instructions .ROUTE .COMPLEX PRN (Reason: Migraine Headache) Rx Instructions: Take 1 tablet by mouth once a day as needed migraine may repeat every two hours as needed with a max dose of 200mg daily topiramate 25 mg tablet 25 mg PO BID pydutnkdfn-ccvjaesfwknmd-cxox 50-325-40 mg tablet 1 tab PO Q4H PRN (Reason: Headache) gabapentin 100 mg capsule 100 mg PO QPM Discharge Orders: Discharge ED (Routine); Ordered 10/11/23 Ordered By: Mike Urbano Referrals: Lennox Marshall MD [Physician] - Luiza Armijo APN [Primary Care Provider] - Discharge Diet: Usual diet Discharge Activity: Resume usual activity Patient Instructions: Opioid Safety, Pain Management Coding Level of Care Code ED Manager Professional Development for Melany Yip
--- NOTE | 2023-10-11 12:47 | ECG_ITS ---
[facility] Test Date: 2023-10-11 Pat Name: Devi Hernandez Department: Room: Gender: Female Splunk Architect: : 1990 Requested By: Mike Urbano Order Number: [id number] Michael MD: Gonzalo Ambrosio M.D. Measurements Intervals [place] Rate: 94 P: 61 MT: 153 QRS: 70 QRSD: 97 T: 44 QT: 312 QTc: 390 Interpretive Statements SINUS RHYTHM POSSIBLE RIGHT VENTRICULAR CONDUCTION DELAY [RSR (QR) IN V1/V2] NONSPECIFIC ST & T-WAVE ABNORMALITY Compared to ECG 06/23/2023 23:32:49 No significant changes Electronically Signed On 10-12-2023 10:23:13 CDT by Gonzalo Ambrosio M.D. [id number]
[2023-10-11 13:33] LABS: Basophils % 0.5 %; Eosinophils % 0.1 %; Hematocrit 43.5 % (36-47); Lymphocytes # 1.2 10^3/uL (0.8-4.8); Lymphocytes % 14.5 %; Mean Corpuscular HGB Conc 33.1 g/dL (30-55); Mean Corpuscular Hemoglobin 28.1 pg (27-33); Mean Corpuscular Volume 84.8 fl (85-98); Mean Platelet Volume 8.9 fL (7.4-10.4); Monocytes # 0.5 10^3/uL (0.2-0.9); Monocytes % 5.4 %; Neutrophils # 6.61 10^3/uL (1.8-7.7); Neutrophils % 79.3 %; Nucleated Red Blood Cells % 0 %; Platelet Count 296 10^3/cmm (157-399); Red Blood Count 5.13 10^6/uL (3.85-5.65); Red Cell Distribution Width 12.2 % (12.1-15.1); White Blood Count 8.34 10^3/uL (3.29-11.43)
[2023-10-11 13:40] LABS: Glucose Point of Care 102 mg/dL (70-110)
[2023-10-11] MEDS: ketorolac 30 mg/mL INJ IVP (13:50)
[2023-10-11] MEDS: diphenhydrAMINE 50 mg/mL SDV 1mL IM (13:50)
[2023-10-11] MEDS: metoclopramide 5 mg/mL SDV 2 mL 10 MG IVP (13:51)
[2023-10-11] MEDS: sodium chloride 0.9% 1,000 ML 999 ML IV (13:59)
[2023-10-11 14:00] LABS: Alanine Aminotransferase 13 U/L (0-33); Albumin Level 4.5 g/dL (3.5-5.2); Alkaline Phosphatase 64 U/L (35-105); Anion Gap 16.7 (5-19); Aspartate Amino Transferase 13 U/L (0-32); Blood Urea Nitrogen 15 mg/dL (6-20); Calcium 9.3 mg/dL (8.5-10.5); Carbon Dioxide 25 mmol/L (22-29); Chloride 99 mmol/L (98-107); Creatinine Clr Calc Pharmacy 127.3534; Globulin 3.3 g/dL (1.3-4.6); Glomerular Filtration Rate 116.6 mL/min (90-130); Glucose 94 mg/dL (65-115); Osmolality Calculated 287 mOsm/kg (285-295); Sodium 138 mmol/L (136-145); Total Bilirubin 0.4 mg/dL (0.15-1.2); Total Protein 7.8 g/dL (6.6-8.7)
[2023-10-11 14:02] LABS: Potassium 2.7 mmol/L (3.5-5.1)
[2023-10-11] MEDS: potassium chloride premix 100 ML 50 MEQ IV (14:43)
[2023-10-11] MEDS: potassium chloride ER 20 mEq Tablet 40 MEQ PO (14:43)
[2023-10-11 14:53] LABS: HCG Qualitative Urine. Negative (Negative)
[2023-10-11 15:02] LABS: Amphetamines Screen Urine Negative (Negative); Barbiturates Screen Urine Positive (Negative); Benzodiazepines Screen Urine Positive (Negative); Cocaine Screen Urine Negative (Negative); Opiate Screen Urine Negative (Negative); PCP Screen Urine Negative (Negative); THC Screen Urine Negative (Negative)
[2023-10-11 15:03] LABS: Add Urine Microscopic? YES; Bacteria Urine 1+ /hpf; Bilirubin Urine Neg (Negative); Blood Urine Neg (Negative); Glucose Urine UA Norm (Normal); Ketones Urine Negative (Negative); Leukocyte Esterase Urine 2+ (Negative); Nitrate Urine Negative (Negative); Protein Urine Neg (Negative); Urine Appearance Clear (CLEAR); Urine Color Yellow (Yellow); Urobilinogen Urine Norm (Negative); pH Urine 6.5 (5-7)
[2023-10-11 15:04] LABS: Add Urine Culture? No
[2023-10-11] MEDS: potassium chloride ER 20 mEq Tablet PO (15:59)
== END 2023-10-11 16:00 | disposition home or self-care (01) ==
PROVIDERS: Emergency Provider Internal Medicine; PCP Nurse Practitioner Family
DX: A18.01 Tuberculosis of spine (principal); R55 Syncope and collapse; E87.6 Hypokalemia; G43.009 Migraine without aura, not intractable, without status migrainosus; Z87.891 Personal history of nicotine dependence
CPT/HCPCS: 36415; 36416; 71045; 80053; 80306; 81001; 81025; 82962; 85025; 93005; 96365; 96366; 96372; 99285; J1200; J1885; J2765; J3480; J7030

== ENCOUNTER 2023-11-26 08:45 | Oncology outpatient (recurring) (ONCR) | payer BC, MEDICAID, SELFPAY ==
[2023-11-05] MEDS: sodium chlor 0.9% + KCl 40 mEq 40 MEQ/1,000 ML BAG 250 MEQ IV (09:53)
[2023-11-05] MEDS: magnesium sulfate premix 2 GM/50 ML PIGGYBACK IV (09:54)
[2023-11-05 15:22] VITALS: BP 122/76; PULSE 64; RESP 16; TEMP 36.6; O2SAT 98
[2023-11-26] MEDS: magnesium sulfate premix 1 GM/100 ML PIGGYBACK IV (09:24)
[2023-11-26] MEDS: sodium chlor 0.9% + KCl 40 mEq 40 MEQ/1,000 ML BAG 250 MEQ IV (09:25)
[2023-11-26 09:34] VITALS: BP 104/69; PULSE 83; RESP 16; TEMP 36.9; O2SAT 95
[2023-11-26 09:37] LABS: Anion Gap 15.4 (5-19); Blood Urea Nitrogen 18 mg/dL (6-20); Calcium 9.8 mg/dL (8.5-10.5); Carbon Dioxide 29 mmol/L (22-29); Chloride 100 mmol/L (98-107); Glomerular Filtration Rate 97.6 mL/min (90-130); Glucose 112 mg/dL (65-115); Magnesium 1.6 mg/dL (1.7-2.3); Osmolality Calculated 297 mOsm/kg (285-295); Sodium 142 mmol/L (136-145)
[2023-11-26 11:16] LABS: Potassium 2.4 mmol/L (3.5-5.1)
[2023-11-26 14:12] VITALS: BP 105/66; PULSE 82; O2SAT 98
[2023-11-26 14:45] LABS: Anion Gap 12.9 (5-19); Blood Urea Nitrogen 15 mg/dL (6-20); Calcium 9.1 mg/dL (8.5-10.5); Carbon Dioxide 28 mmol/L (22-29); Chloride 101 mmol/L (98-107); Glomerular Filtration Rate 116.6 mL/min (90-130); Glucose 112 mg/dL (65-115); Magnesium 1.8 mg/dL (1.7-2.3); Osmolality Calculated 290 mOsm/kg (285-295); Sodium 139 mmol/L (136-145)
[2023-11-26 15:14] LABS: Potassium 2.9 mmol/L (3.5-5.1)
--- NOTE | 2023-11-26 16:44 | PC.NURSE ---
Called Adriana Perry CNP with [facility] to notify of pts lab results. No answer, did not leave a message for nurse. ALETA
== END 2023-12-02 23:59 | disposition home or self-care (01) ==
PROVIDERS: PCP Nurse Practitioner Family; Visit Provider Nurse Practitioner Gerontology
DX: E87.6 Hypokalemia; E83.42 Hypomagnesemia; Z53.9 Procedure and treatment not carried out, unspecified reason
CPT/HCPCS: 80048; 83735; 96365; 96366; 96368; J3475

== ENCOUNTER 2023-12-05 10:54 | Emergency (ER) | payer BC, MEDICAID, SELFPAY ==
[2023-12-05] VITALS (30 sets, daily range): BP systolic 116–120; BP diastolic 79–83; PULSE 80–104; RESP 14–26; TEMP 36.8; O2SAT 97–100; BMI 26.5
--- NOTE | 2023-12-05 11:23 | XR_ITS ---
WS: [id number] XR chest 1V portable [id number] REASON FOR EXAM: dyspnea/cough FINDINGS: The chest is unchanged compared to 10/11/2023. The heart and the mediastinum are within normal limits. Calcified granulomas disease in both hemithoraces. No acute pulmonary parenchymal or pleural abnormality. Bony thorax intact without significant focal abnormality. XR/XR chest 1V portable [id number] IMPRESSION: Stable chest without acute abnormality.
--- NOTE | 2023-12-05 11:53 | ED_ITS ---
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 She frequently receives potassium supplementation IV. While she was at work today she has some chest discomfort and palpitations a syncopal episode. Onset (ago): minute(s) Timing of current episode: episodic Prior episodes: Yes Associated symptoms: Deny abdominal pain, diaphoresis, dyspnea, fever(s), leg edema, nausea, palpitations, sense of impending doom, syncope or vomiting Review of Systems 2 Const: Denies: fever(s), chills or diaphoresis Card: Denies: chest pain, palpitations or syncope Resp: Denies: dyspnea GI: Denies: abdominal pain, nausea or vomiting : Denies: dysuria, urinary frequency or urinary urgency Musc: Denies: neck pain or back pain Skin/Breast: Denies: rash PFSH ED 2 PFSH: Medical History Chest pain Vaginal delivery Bartter syndrome Social History Smoking and tobacco/nicotine status: former use of tobacco/nicotine Alcohol intake: never Substance/Drug Use: never Physical Exam 2 Const: COMMON NORMALS: no acute distress GENERAL APPEARANCE: cooperative and comfortable ORIENTATION/CONSCIOUSNESS: Yes awake, Yes oriented to person, Yes oriented to place and Yes oriented to time HENMT: COMMON NORMALS: normocephalic, atraumatic and hearing grossly normal bilaterally HEAD & SCALP: normocephalic and atraumatic Resp: COMMON NORMALS: normal respiratory effort, No retractions, No use of accessory muscles and clear to auscultation bilaterally AUSCULTATION: clear to auscultation bilaterally Cardio: COMMON NORMALS: regular rate, regular rhythm and No murmurs present (Cardio) RATE: regular rate RHYTHM: regular rhythm GI: COMMON NORMALS: Soft to palpation and No hepatosplenomegaly present A USCULTATION: Yes normoactive bowel sounds PALPATION: Yes Soft to palpation, No Tenderness to palpation present (GI), No Guarding due to palpation present (GI) and Yes No hepatosplenomegaly present Extremity: COMMON NORMALS: normal to inspection, capillary refill normal, no clubbing, cyanosis or edema, no calf tenderness and no pedal edema Neuro: SENSORIUM/ORIENTATION: Yes oriented to person, Yes oriented to place and Yes oriented to time Skin: COMMON NORMALS: no rashes or lesions noted GENERAL SKIN EXAM: no rashes or lesions noted Course 2 Vital Signs: Vital signs: Vital Signs Temperature 98.2 F 12/05/23 15:51 Pulse Rate 99 12/05/23 15:51 Respiratory Rate 19 H 12/05/23 15:51 Blood Pressure 116/79 12/05/23 15:51 Pulse Oximetry 99 12/05/23 15:51 Oxygen Delivery Me thod Room Air 12/05/23 13:28 MDM - Chest Pain Medical Decision Making Recent lites potassium and magnesium repeat potassium 3.4. 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 Medical Records I reviewed the patient's medical records. Lab Data I reviewed the patient's lab results. 12/05/23 11:48 12/05/23 14:26 Radiology Impressions Chest X-Ray 12/05/23 11:23 IMPRESSION: Stable chest without acute abnormality. Laboratory Results WBC 6.40 10^3/uL (3.29-11.43) 12/05/23 11:48 RBC 4.96 10^6/uL (3.85-5.65) 12/05/23 11:48 Hgb 14.30 g/dL (11.27-16.99) 12/05/23 11:48 Hct 40.1 % (36-47) 12/05/23 11:48 MCV 80.8 fl (85-98) L 12/05/23 11:48 MCH 28.8 pg (27-33) 12/05/23 11:48 MCHC 35.7 g/dL (30-55) 12/05/23 11:48 RDW 12.5 % (12.1-15.1) 12/05/23 11:48 Plt Count 304 10^3/cmm (157-399) 12/05/23 11:48 MPV 9.0 fL (7.4-10.4) 12/05/23 11:48 Neut % (Auto) 60.8 % 12/05/23 11:48 Lymph % (Auto) 32.2 % 12/05/23 11:48 Arthur % (Auto) 5.6 % 12/05/23 11:48 Eos % (Auto) 0.9 % 12/05/23 11:48 Baso % (Auto) 0.3 % 12/05/23 11:48 Neut # (Auto) 3.89 10^3/uL (1.8-7.7) 12/05/23 11:48 Lymph # (Auto) 2.1 10^3/uL (0.8-4.8) 12/05/23 11:48 Arthur # (Auto) 0.4 10^3/uL (0.2-0.9) 12/05/23 11:48 Eos # (Auto) 0.1 10^3/uL (0.0-0.8) 12/05/23 11:48 Baso # (Auto) 0.0 10^3/uL (0.0-0.1) 12/05/23 11:48 Nucleated RBC % (auto) 0 % 12/05/23 11:48 Nucleated RBCs # 0.0 /100WBC 12/05/23 11:48 Sodium 139 mmol/L (136-145) 12/05/23 11:48 Potassium 3.4 mmol/L (3.5-5.1) L 12/05/23 14:26 Chloride 100 mmol/L (98-107) 12/05/23 11:48 Carbon Dioxide 28 mmol/L (22-29) 12/05/23 11:48 Anion Gap 13.5 (5-19) 12/05/23 11:48 BUN 13 mg/dL (6-20) 12/05/23 11:48 Creatinine 0.5 mg/dL (0.5-0.9) 12/05/23 11:48 GFR Calculation 143.9 mL/min (90-130) H 12/05/23 11:48 Glucose 105 mg/dL (65-115) 12/05/23 11:48 Calculated Osmolality 288 mOsm/kg (285-295) 12/05/23 11:48 Calcium 9.1 mg/dL (8.5-10.5) 12/05/23 11:48 Magnesium 1.6 mg/dL (1.7-2.3) L 12/05/23 11:48 Total Bilirubin 0.3 mg/dL (0.15-1.2) 12/05/23 11:48 AST 15 U/L (0-32) 12/05/23 11:48 ALT 16 U/L (0-33) 12/05/23 11:48 Alkaline Phosphatase 63 U/L (35-105) 12/05/23 11:48 Total Protein 8.0 g/dL (6.6-8.7) 12/05/23 11:48 Albumin 4.6 g/dL (3.5-5.2) 12/05/23 11:48 Globulin 3.4 g/dL (1.3-4.6) 12/05/23 11:48 HCG, Qual Negative (Negative) 12/05/23 11:48 No radiology studies performed this visit Discharge Plan Discharge Patient Disposition: Home Clinical Impression: Bartter syndrome, Hypokalemia, Hypomagnesemia Condition: Stable Prescriptions: No Action Emgality Syringe 120 mg/mL syringe 240 mg SUBCUT ONCE Qty: 2 0RF Rx Instructions: loading dose Emgality Syringe 120 mg/mL syringe 120 mg SUBCUT ONCE Qty: 1 5RF alprazolam [Xanax] 0.5 mg Tablet 0.5 mg PO TID PRN (Reason: Anxiety) fluoxetine 40 mg capsule 40 mg PO BEDTIME potassium chloride 10 mEq capsule, extended release 100 meq PO 5XD magnesium oxide 400 mg magnesium Tablet 400 mg PO BID ondansetron 8 mg tablet,disintegrating 8 mg PO .Q4-6H PRN (Reason: Nausea And Vomiting) diltiazem HCl 60 mg capsule,extended release 12 hr 60 mg PO BID cyclobenzaprine 10 mg tablet 10 mg PO DAILY PRN (Reason: muscle spasms) Drysol Dab-O-Matic 20 % solution See Rx Instructions .ROUTE .COMPLEX Rx Instructions: 1 applic topically twice weekly at bedtime. sumatriptan succinate [Imitrex] 50 mg tablet See Rx Instructions .ROUTE .COMPLEX PRN (Reason: Migraine Headache) Rx Instructions: Take 1 tablet by mouth once a day as needed migraine may repeat every two hours as needed with a max dose of 200mg daily topiramate 25 mg tablet 25 mg PO BID lnsuuimmce-igqqsgwbediki-lrtz 50-325-40 mg tablet 1 tab PO Q4H PRN (Reason: Headache) gabapentin 300 mg capsule 300 mg PO TID Discharge Orders: Discharge ED (Routine); Ordered 12/05/23 Ordered By: Manuelito Connell Referrals: Luiza Armijo APN [Primary Care Provider] - Discharge Diet: Usual diet Discharge Activity: Resume usual activity Patient Instructions: Opioid Safety, Pain Management Activity Restrictions/Additional Instructions: Thank you for choosing [facility] for your healthcare needs today. Please realize this is an emergency room and that we are providing you with a medical screening exam and this may not be complete and all inclusive of all the testing and or work up that you may need to determine your ailment or severity of your illness. It is very important that you follow up as instructed or that you return to the Emergency Department should you have concerns or if your condition changes or worsens in any way. Coding Level of Care Code ED [facility] [employer] [facility] for Melany Yip
[2023-12-05] MEDS: sodium chloride 0.9% 1,000 ML 999 ML IV ×3 (12:00→14:39)
[2023-12-05] MEDS: potassium chloride premix 100 ML 25 MEQ IV (12:13)
[2023-12-05 12:14] LABS: Basophils % 0.3 %; Eosinophils # 0.1 10^3/uL (0.0-0.8); Eosinophils % 0.9 %; Hematocrit 40.1 % (36-47); Lymphocytes # 2.1 10^3/uL (0.8-4.8); Lymphocytes % 32.2 %; Mean Corpuscular HGB Conc 35.7 g/dL (30-55); Mean Corpuscular Hemoglobin 28.8 pg (27-33); Mean Corpuscular Volume 80.8 fl (85-98); Monocytes # 0.4 10^3/uL (0.2-0.9); Monocytes % 5.6 %; Neutrophils # 3.89 10^3/uL (1.8-7.7); Neutrophils % 60.8 %; Nucleated Red Blood Cells % 0 %; Platelet Count 304 10^3/cmm (157-399); Red Blood Count 4.96 10^6/uL (3.85-5.65); Red Cell Distribution Width 12.5 % (12.1-15.1)
[2023-12-05 12:33] LABS: HCG, Serum Qual Negative (Negative)
[2023-12-05 12:38] LABS: Alanine Aminotransferase 16 U/L (0-33); Albumin Level 4.6 g/dL (3.5-5.2); Alkaline Phosphatase 63 U/L (35-105); Anion Gap 13.5 (5-19); Aspartate Amino Transferase 15 U/L (0-32); Blood Urea Nitrogen 13 mg/dL (6-20); Calcium 9.1 mg/dL (8.5-10.5); Carbon Dioxide 28 mmol/L (22-29); Chloride 100 mmol/L (98-107); Creatinine Clr Calc Pharmacy 150.9567; Globulin 3.4 g/dL (1.3-4.6); Glomerular Filtration Rate 143.9 mL/min (90-130); Glucose 105 mg/dL (65-115); Magnesium 1.6 mg/dL (1.7-2.3); Osmolality Calculated 288 mOsm/kg (285-295); Sodium 139 mmol/L (136-145); Total Bilirubin 0.3 mg/dL (0.15-1.2)
[2023-12-05 12:42] LABS: Potassium 2.5 mmol/L (3.5-5.1)
[2023-12-05] MEDS: LORazepam 2 mg/mL INJ 10 mL MDV IVP (13:05)
[2023-12-05] MEDS: magnesium sulfate premix 4 GM/100 ML PREMIX IV (13:12)
[2023-12-05] MEDS: potassium chloride oral liq 20 mEq/15 mL UDC 60 MEQ PO (13:24)
[2023-12-05 14:56] LABS: Potassium 3.4 mmol/L (3.5-5.1)
--- NOTE | 2023-12-05 17:03 | PC.NURSE ---
PER VERBAL ORDER FROM DR. JANE CALL PRESCRIPTION TO [facility] ATIVAN 2MG Q8H PRN #5 POTASSIUM 20MEQ/15 ML 15MLML TID #1 BOTTLE
== END 2023-12-05 15:52 | disposition home or self-care (01) ==
PROVIDERS: Emergency Provider Family Medicine; PCP Nurse Practitioner Family
DX: E26.81 Bartter's syndrome (principal); E87.6 Hypokalemia; E83.42 Hypomagnesemia; Z87.891 Personal history of nicotine dependence
CPT/HCPCS: 36415; 71045; 80053; 83735; 84132; 84703; 85025; 96365; 96366; 96367; 96375; 99284; J2060; J3475; J3480; J7030

== ENCOUNTER 2023-12-10 08:35 | Oncology outpatient (recurring) (ONCR) | payer BC, MEDICAID, SELFPAY ==
[2023-12-10] MEDS: sodium chlor 0.9% + KCl 40 mEq 40 MEQ/1,000 ML BAG 250 MEQ IV (08:59)
[2023-12-10] MEDS: magnesium sulfate premix 1 GM/100 ML PIGGYBACK IV (09:08)
[2023-12-10 09:24] LABS: Anion Gap 15.8 (5-19); Blood Urea Nitrogen 12 mg/dL (6-20); Calcium 9.2 mg/dL (8.5-10.5); Carbon Dioxide 24 mmol/L (22-29); Chloride 98 mmol/L (98-107); Glomerular Filtration Rate 186.2 mL/min (90-130); Glucose 156 mg/dL (65-115); Magnesium 1.3 mg/dL (1.7-2.3); Osmolality Calculated 283 mOsm/kg (285-295); Sodium 135 mmol/L (136-145)
[2023-12-10 09:28] LABS: Potassium 2.8 mmol/L (3.5-5.1)
[2023-12-10 12:48] VITALS: BP 104/66; PULSE 75; RESP 16; O2SAT 97
[2023-12-10 13:49] LABS: Anion Gap 13.9 (5-19); Blood Urea Nitrogen 9 mg/dL (6-20); Calcium 8.7 mg/dL (8.5-10.5); Carbon Dioxide 26 mmol/L (22-29); Chloride 100 mmol/L (98-107); Glomerular Filtration Rate 186.2 mL/min (90-130); Glucose 81 mg/dL (65-115); Magnesium 1.6 mg/dL (1.7-2.3); Osmolality Calculated 282 mOsm/kg (285-295); Sodium 137 mmol/L (136-145)
[2023-12-10 14:00] LABS: Potassium 2.9 mmol/L (3.5-5.1)
== END 2024-01-02 23:59 | disposition home or self-care (01) ==
PROVIDERS: PCP Nurse Practitioner Family; Visit Provider Nurse Practitioner Gerontology
DX: E87.6 Hypokalemia (principal); E83.42 Hypomagnesemia; E26.81 Bartter's syndrome
CPT/HCPCS: 36415; 80048; 82525; 82607; 83735; 96365; 96366; 96368; J3475

== ENCOUNTER 2024-01-27 09:01 | Oncology outpatient (recurring) (ONCR) | payer BC, MEDICAID, SELFPAY ==
--- NOTE | 2024-01-27 09:30 | MR_ITS ---
WS: [id number] MRI CERVICAL SPINE NONCONTRAST TECHNIQUE: Sagittal T1, T2 and STIR imaging. Axial T2, gradient, and fiesta imaging. CLINICAL INFORMATION: M54.2 - Cervicalgia COMPARISON: None. FINDINGS: Straightening of the normal cervical lordosis. Cord signal is normal. Disc bulging worse at C3-C4 and C6-7. C2-C3: Normal. C3-C4: Mild disc bulging. Mild facet arthropathy. Mild LEFT foraminal narrowing. C4-C5: Mild facet arthropathy. Spinal canal and foramen are patent. C5-C6: Disc osteophyte complex with endplate ridging. Mild LEFT and no significant RIGHT foraminal na rrowing. Mild facet arthropathy. C6-C7: Mild facet arthropathy. Mild LEFT and no significant RIGHT foraminal narrowing. Spinal canal i s patent. C7-T1: Mild LEFT bony foraminal narrowing. Spinal canal and RIGHT foramen are patent. Visualized brain stem structures: Normal. Prevertebral soft tissues: Normal. Incidental slightly low-lying cerebellar tonsils. MR/MR cervical spin wo con* [id number] IMPRESSION: 1. Straightening of the normal cervical lordosis with mild disc bulging worse at C3-C4. 2. No significant central canal stenosis. Cord signal is normal. 3. Mild bony foraminal narrowing at LEFT C3-C4, LEFT C5-C6, and LEFT C6-C7 wit h osteophytic ridging.
== END 2024-02-01 23:59 | disposition home or self-care (01) ==
LOC: RAD 09:01 → ONCMED 02-17 07:41
PROVIDERS: PCP Nurse Practitioner Family; Visit Provider Specialist
DX: R55 Syncope and collapse (principal); G43.711 Chronic migraine without aura, intractable, with status migrainosus; M50.31 Other cervical disc degeneration, high cervical region; M48.02 Spinal stenosis, cervical region; M25.78 Osteophyte, vertebrae
CPT/HCPCS: 72141

== ENCOUNTER 2024-02-10 09:22 | Outpatient (CLI) | payer BC, MEDICAID, SELFPAY ==
--- NOTE | 2024-02-10 09:30 | MR_ITS ---
WS: [id number] MRI HEAD WITHOUT CONTRAST TECHNIQUE: Sagittal T1, T2 axial, T2 axial FLAIR, axial and coronal T1 images, axial susceptibility w eighted imaging, axial diffusion weighted images, and coronal T2 images were obtained. CLINICAL INFORMATION: R55 - Syncope and collapse COMPARISON: MRI 2020 FINDINGS: Stable incidental cerebellar tonsillar ectopia. No restricted diffusion to suggest acute ischemia. No rmal hahn-white differentiation. No suspicious intracranial signal abnormalities. Normal vascular daniel w voids at the skull base. No extra-axial fluid collections. Paranasal sinuses and mastoid air cells well aerated. No hemosiderin on susceptibility-weighted image s. Normal optic chiasm and pituitary infundibulum. Temporal lobes and hippocampal formations are norm al in appearance. MR/MR head wo con* [id number] IMPRESSION: 1. No suspicious intracranial signal abnormalities 2. No hemosiderin on susceptibility-weighted images. 3. Stable incidental cerebellar tonsillar ectopia. 4. No other suspicious findings.
== END 2024-02-10 09:23 | disposition home or self-care (01) ==
LOC: RAD 09:22
PROVIDERS: PCP Nurse Practitioner Family; Visit Provider Specialist
DX: R55 Syncope and collapse (principal); G43.711 Chronic migraine without aura, intractable, with status migrainosus
CPT/HCPCS: 70551

== ENCOUNTER 2024-02-24 19:44 | Emergency (ER) | payer BC, MEDICAID, SELFPAY ==
[2024-02-24 19:51] VITALS: BP 107/71; PULSE 87; RESP 14; TEMP 36.9; O2SAT 99
--- NOTE | 2024-02-24 20:07 | XRR_ITS ---
PROCEDURE INFORMATION: Exam: XR Right Tibia and Fibula Exam date and time: 02/24/2024 8:16 PM Age: 33 years old Clinical indication: Injury or trauma; Other: Hurt RT tib fib; Blunt trauma; Lower leg; Right; Additional info: Pain/pop TECHNIQUE: Imaging protocol: Radiologic exam of the right tibia and fibula. Views: 2 views. COMPARISON: No relevant prior studies available. FINDINGS: Bones/joints: Normal. Soft tissues: Normal. XR/XR tibia fibula RT 2V [id number] IMPRESSION: No acute findings.
--- NOTE | 2024-02-24 20:10 | W.ED.EXTPRO ---
HPI - Extremity Problem General: Chief complaint: Extremity Injury, Lower Stated complaint: Fall, right leg injury Time Seen by Provider: 02/24/24 19:49 Source: patient Mode of arrival: ambulatory Limitations: no limitations History of Present Illness: Patient is a 33-year-old female who presents to the emergency department complaining of right posterior lower leg pain onset today. Patient states that she was walking down steps when her right leg gave out, and she felt and heard a loud pop with sudden onset of 10/10 pain to her right calf. She states that she has a history of hypokalemia and that it causes her to have frequent charley horses. She notes she has not been ambulatory since this happened due to the severity of the pain. Pain is worse when she dorsiflex her foot and with any palpation of the right posterior leg. She does note some radiation proximally up the leg. Denies any pain with the knee joint. No trauma. Has not taken anything for pain at this time. No other symptoms to report. MD Complaint: extremity pain Onset (ago): minute(s) Pain Consistency: constant Location: right and lower extremity Severity scale (1-10): 10 Quality: sharp Radiation: proximal Relieving factors: nothing Exacerbating factors: range of motion, weight bearing and palpation Associated symptoms: Deny chest pain, fever(s) or rash Review of Systems General: Reports: 10 or more systems reviewed and unremarkable except in HPI and below Const: Denies: fever(s) or chills Card: Denies: chest pain Resp: Denies: dyspnea or productive cough GI: Denies: abdominal pain, nausea, vomiting or diarrhea : Denies: flank pain Musc: Reports: extremity pain and muscle weakness; Denies: neck pain, back pain, extremity swelling, joint pain, joint swelling, joint redness or joint warmth Skin/Breast: Denies: rash Neuro: Reports: difficulty walking; Denies: headache(s) or numbness in extremities PFSH ED PFSH: Medical History Chest pain Vaginal delivery Bartter syndrome Social History Smoking and tobacco/nicotine status: never used tobacco/nicotine Alcohol intake: never Substance/Drug Use: never Physical Exam Const: COMMON NORMALS: no acute distress, patient oriented x3, no limitations, healthy appearing, alert and well nourished HENMT: COMMON NORMALS: normocephalic and atraumatic HEAD & SCALP: normocephalic and atraumatic Neck/C-Spine: COMMON NORMALS: full ROM, supple and no meningeal signs Resp: COMMON NORMALS: normal respiratory effort, No use of accessory muscles and clear to auscultation bilaterally AUSCULTATION: clear to auscultation bilaterally Cardio: COMMON NORMALS: regular rate and regular rhythm RATE: regular rate RHYTHM: regular rhythm Extremity: COMMON NORMALS: capillary refill normal, no joint enlargement and no clubbing, cyanosis or edema NARRATIVE EXTREMITY EXAM: No obvious signs of trauma or deformity. Tenderness to palpation of the right posterior calf. Pain with dorsiflexion of the right foot. Does not attempt to bear weight. Good peripheral pulses. No skin color changes. No bruising or edema. Knee and ankle joint examinations are normal. Neuro: COMMON NORMALS: patient oriented x3, moves all extremities, no focal motor deficits and no sensory deficits noted SENSORIUM/ORIENTATION: Yes alert MENINGEAL SIGNS: Yes no meningeal signs Skin: COMMON NORMALS: no rashes or lesions noted GENERAL SKIN EXAM: no rashes or lesions noted Course Vital Signs: Vital signs: Vital Signs Temperature 98.4 F 02/24/24 19:51 Pulse Rate 87 02/24/24 19:51 Respiratory Rate 14 02/24/24 19:51 Blood Pressure 107/71 02/24/24 19:51 Pulse Oximetry 99 02/24/24 19:51 MDM - Extremity (Nontraumatic) Medical Decision Making Patient presented with acute onset of right calf pain, as she felt that her to pop. She did report a history of hypokalemia due to chronic kidney issues, and states she frequently has charley horses and musculoskeletal injuries of similar variety. Her x-ray today was negative, and I do believe she is dealing with a strain of the calf muscle as it was worse with dorsiflexion and she was tender to palpation of the right posterior calf. Her vitals are normal. Joint above and below were also normal on examination. She already takes Flexeril at home and she is encouraged to continue taking this. For any further evaluation with imaging, she is to follow-up with primary care for potential MRI. Otherwise she is given a shot of Toradol here in the emergency department and will be discharged home with return precautions given. She is also given crutches to weight-bear as tolerated. Lab Data Radiology Impressions Tibia/Fibula X-Ray 02/24/24 20:07 IMPRESSION: No acute findings. All radiology interpretation(s) finalized by discharge Discharge Plan Discharge Patient Disposition: Home Clinical Impression: Strain of right calf muscle Condition: Stable Prescriptions: No Action Emgality Syringe 120 mg/mL syringe 120 mg SUBCUT ONCE Qty: 1 5RF indomethacin 50 mg capsule 50 mg PO ONCE Rx Instructions: administer with food or milk alprazolam [Xanax] 0.5 mg Tablet 0.5 mg PO TID PRN (Reason: Anxiety) fluoxetine 40 mg capsule 40 mg PO BEDTIME potassium chloride 10 mEq capsule, extended release 100 meq PO 5XD magnesium oxide 400 mg magnesium Tablet 400 mg PO BID ondansetron 8 mg tablet,disintegrating 8 mg PO .Q4-6H PRN (Reason: Nausea And Vomiting) diltiazem HCl 60 mg capsule,extended release 12 hr 60 mg PO BID cyclobenzaprine 10 mg tablet 10 mg PO DAILY PRN (Reason: muscle spasms) Drysol Dab-O-Matic 20 % solution See Rx Instructions .ROUTE .COMPLEX Rx Instructions: 1 applic topically twice weekly at bedtime. vgrxqbefoz-ojxpnbazyxcej-uvip 50-325-40 mg tablet 1 tab PO Q4H PRN (Reason: Headache) gabapentin 300 mg capsule 300 mg PO TID Discharge Orders: Discharge ED (Routine); Ordered 02/24/24 Ordered By: Uday Rubin Referrals: Luiza Armijo APN [Primary Care Provider] - Discharge Diet: Usual diet Discharge Activity: Increase activity as tolerated Patient Instructions: Muscle Strain (ED), Pain Management Activity Restrictions/Additional Instructions: Continue taking your Flexeril at home as prescribed. Tylenol and ibuprofen for pain. Weightbearing as tolerated. Gentle range of motion exercises. Ice and heat. Please follow-up with your primary care provider for any further evaluation, potentially an MRI. Return with any new or concerning symptoms may have. Coding Level of Care Code ED [facility] for Melany Yip
[2024-02-24] MEDS: dexamethasone 10 mg/mL INJ IM (20:43)
[2024-02-24] MEDS: ketorolac 60 mg/2 mL INJ IM (20:43)
[2024-02-24 20:59] VITALS: BP 107/71; PULSE 87; RESP 14; TEMP 36.9; O2SAT 99
== END 2024-02-24 21:00 | disposition home or self-care (01) ==
PROVIDERS: Emergency Provider Physician Assistant; PCP Nurse Practitioner Family
DX: S86.111A Strain of other muscle(s) and tendon(s) of posterior muscle group at lower leg level, right leg, initial encounter (principal); X50.9XXA Other and unspecified overexertion or strenuous movements or postures, initial encounter
CPT/HCPCS: 73590; 96372; 99284; E0114; J1100; J1885

== ENCOUNTER 2024-03-19 07:57 | Oncology outpatient (recurring) (ONCR) | payer BC, MEDICAID, SELFPAY ==
[2024-03-19 08:04] VITALS: BP 113/77; PULSE 87; RESP 16; TEMP 36.6; O2SAT 98
[2024-03-19] MEDS: sodium chlor 0.9% + KCl 40 mEq 40 MEQ/1,000 ML BAG 250 MEQ IV (08:30)
[2024-03-19 08:39] LABS: Potassium 3.5 mmol/L (3.5-5.1)
[2024-03-19 12:15] VITALS: BP 110/70; PULSE 84; RESP 16; TEMP 36.7; O2SAT 98
[2024-03-19 12:38] LABS: Potassium 3.9 mmol/L (3.5-5.1)
== END 2024-04-03 23:59 | disposition home or self-care (01) ==
LOC: ONCMED 07:58
PROVIDERS: Nurse Practitioner Gerontology; PCP Nurse Practitioner Family; Visit Provider Specialist
DX: E87.6 Hypokalemia (principal); Z79.899 Other long term (current) drug therapy
CPT/HCPCS: 36415; 84132; 96365; 96366

== ENCOUNTER → 2024-06-17 10:54 | Outpatient (BNVA) | payer BC, MEDICAID, SELFPAY | PROVIDERS: PCP Nurse Practitioner Family; Visit Provider Specialist | DX: G43.711 Chronic migraine without aura, intractable, with status migrainosus (principal); M54.2 Cervicalgia; R55 Syncope and collapse; I73.81 Erythromelalgia; R23.2 Flushing; M79.7 Fibromyalgia | CPT/HCPCS: 36415; 83036; 83520; 85651; 86140; 86160; 86162; 86235; 86255; 86376 ==

== ENCOUNTER → 2024-06-18 10:36 | Outpatient (BNVA) | payer BC, MEDICAID, SELFPAY | PROVIDERS: PCP Nurse Practitioner Family; Visit Provider Specialist | DX: G43.711 Chronic migraine without aura, intractable, with status migrainosus (principal); M54.2 Cervicalgia; R55 Syncope and collapse; I73.81 Erythromelalgia; R23.2 Flushing; M79.7 Fibromyalgia | CPT/HCPCS: 83835 ==

== ENCOUNTER → 2024-07-09 15:56 | Outpatient (BNVA) | payer BC, MEDICAID, SELFPAY | PROVIDERS: PCP Nurse Practitioner Family; Visit Provider Specialist | DX: E26.81 Bartter's syndrome; M79.7 Fibromyalgia; R55 Syncope and collapse | CPT/HCPCS: 36415; 84439; 84443; 84481 ==

== ENCOUNTER → 2024-09-23 13:50 | Outpatient (BNVA) | payer BC, MEDICAID, SELFPAY | PROVIDERS: PCP Nurse Practitioner Family; Visit Provider Specialist | DX: R55 Syncope and collapse (principal); R23.2 Flushing; M79.7 Fibromyalgia; M54.2 Cervicalgia; G43.711 Chronic migraine without aura, intractable, with status migrainosus; E87.6 Hypokalemia | CPT/HCPCS: 36415; 82533 ==

== ENCOUNTER 2024-09-25 09:19 | Outpatient (CLI) | payer BC, MEDICAID, SELFPAY | END 2024-09-25 09:20 | disposition home or self-care (01) | PROVIDERS: PCP Nurse Practitioner Family; Visit Provider Specialist | DX: M79.7 Fibromyalgia (principal); R55 Syncope and collapse; R23.2 Flushing; M54.2 Cervicalgia; G43.711 Chronic migraine without aura, intractable, with status migrainosus; E87.6 Hypokalemia | CPT/HCPCS: 82530; 82542; 82570 ==

== ENCOUNTER 2025-01-16 10:59 | Emergency (ER) | payer BC, MEDICAID, SELFPAY ==
[2025-01-16 11:04] VITALS: BP 132/91; PULSE 99; RESP 18; TEMP 36.7; O2SAT 99; BMI 35.4
--- NOTE | 2025-01-16 11:09 | USR_ITS ---
PROCEDURE INFORMATION: Exam: US Abdomen, Limited; Right Upper Quadrant Exam date and time: 01/16/2025 11:53 AM Age: 34 years old Clinical indication: Abdominal pain; Epigastric; Additional info: Ruq pain TECHNIQUE: Imaging protocol: Real time ultrasound of the abdomen with image documentation. Limited exam focused on the right upper quadrant. COMPARISON: US abdomen limited [id number] 05/14/2018 9:06 AM FINDINGS: Liver: Normal. No masses. Liver span is 15 cm. Increased hepatic echogenicity consistent with steatosis. Gallbladder: Normal. No gallstones. There is no gallbladder wall thickening. Biliary ducts: Normal. No stones. No dilation. CBD 3 mm Pancreas: Visualized pancreas is unremarkable. Right kidney: Normal. No mass. No hydronephrosis. 12 cm x 4.5 cm x 4.4 cm US/US gall bladder [id number] IMPRESSION: 1. Hepatic steatosis 2. Otherwise negative sonogram of the abdomen
--- NOTE | 2025-01-16 11:10 | W.ED.ABDPA2 ---
HPI - Abdominal Pain General: Chief Complaint: Abdominal Pain Stated Complaint: chest pain Time Seen by Provider: 01/16/25 11:06 Source: patient Mode of arrival: ambulatory Limitations: no limitations History of Present Illness: 34-year-old female states she been having right upper quadrant pain it has been going on for 5 days. States pain is worse after eating and drinking pain is currently 8 out of 10 did have an episode of vomiting this morning she denies any fevers she still has her gallbladder has had some pain radiate to her shoulder. Associated Symptoms: Reports nausea and vomiting; Denies chills, diarrhea, dysuria and fever(s) Related Data Home Medications ?Medication ?Instructions ?Recorded ?Confirmed alprazolam 0.5 mg tablet (Xanax) 0.5 mg PO TID PRN Anxiety 03/17/23 01/16/25 fluoxetine 40 mg capsule 40 mg PO BEDTIME 03/17/23 01/16/25 potassium chloride 10 mEq 100 meq PO 5XD 03/17/23 01/16/25 capsule,extended release aluminum chloride 20 % topical See Rx Instructions .Route .COMPLEX 10/11/23 01/16/25 solution (Drysol Dab-O-Matic) cyclobenzaprine 10 mg tablet 10 mg PO DAILY PRN muscle spasms 10/11/23 01/16/25 ondansetron 8 mg disintegrating 8 mg PO .Q4-6H PRN Nausea And 10/11/23 01/16/25 tablet Vomiting gabapentin 300 mg capsule 300 mg PO TID 12/05/23 01/16/25 indomethacin 50 mg capsule 50 mg PO ONCE 12/24/23 01/16/25 famotidine 40 mg tablet 40 mg PO DAILY 06/17/24 01/16/25 flecainide 50 mg tablet 50 mg PO BID 06/17/24 01/16/25 magnesium gluconate 27 mg 27 mg PO TID 06/17/24 01/16/25 magnesium (500 mg) tablet aluminum-mag hydroxide-simethicone 15 ml PO QID PRN Stomach Upset 01/16/25 01/16/25 200 mg-200 mg-20 mg/5 mL oral susp atenolol 25 mg tablet 25 mg PO DAILY 01/16/25 01/16/25 bisoprolol fumarate 5 mg tablet 2.5 mg PO DAILY 01/16/25 01/16/25 Previous Rx's ?Medication ?Instructions ?Recorded dicyclomine 20 mg tablet 20 mg PO QID PRN abdominal pain 01/13/25 #20 tabs hydrocodone 5 mg-acetaminophen 325 1 tab PO Q6H PRN pain #14 tabs 01/16/25 mg tablet ondansetron 4 mg disintegrating 4 mg PO Q6H PRN nausea and 01/16/25 tablet vomiting #14 tabs Allergies Allergy/AdvReac Type Severity Reaction Status Date / Time ibuprofen Allergy ALGY-Rash Verified 01/13/25 09:04 Review of Systems Const: Denies: fever(s), chills, body aches or change in appetite ENMT: Denies: throat pain or dental pain Card: Denies: chest pain Resp: Denies: dyspnea GI: Reports: abdominal pain, nausea and vomiting; Denies: diarrhea : Denies: dysuria Musc: Denies: neck pain or back pain Skin/Breast: Denies: rash Neuro: Denies: headache(s) PFS ED PFSH: Medical History Chest pain Vaginal delivery Bartter syndrome Social History Smoking and tobacco/nicotine status: never used tobacco/nicotine Alcohol intake: never Substance/Drug Use: never Physical Exam Const: COMMON NORMALS: no acute distress, patient oriented x3 and healthy appearing HENMT: COMMON NORMALS: normocephalic and atraumatic HEAD & SCALP: normocephalic and atraumatic Neck/C-Spine: COMMON NORMALS: full ROM and supple Chest: COMMONS NORMALS: normal inspection of the chest Resp: COMMON NORMALS: normal respiratory effort Cardio: COMMON NORMALS: regular rate, regular rhythm and No murmurs present (Cardio) RATE: regular rate RHYTHM: regular rhythm GI: COMMON NORMALS: Normal to inspection, nondistended, normoactive bowel sounds present, Soft to palpation and no masses PALPATION: Yes Soft to palpation and Yes Tenderness to palpation present (GI) Details: RUQ Extremity: COMMON NORMALS: normal to inspection and full ROM Neuro: COMMON NORMALS: patient oriented x3, moves all extremities and no focal motor deficits Psych: COMMON NORMALS: mental status grossly normal, Normal thought process present and cooperative THOUGHT PROCESS: Normal thought process present Skin: COMMON NORMALS: no rashes or lesions noted and no wounds GENERAL SKIN EXAM: no rashes or lesions noted Course Vital Signs: Vital signs: Vital Signs Temperature 98.1 F 01/16/25 11:04 Pulse Rate 99 01/16/25 11:04 Respiratory Rate 18 01/16/25 11:19 Blood Pressure 132/81 01/16/25 11:19 Pulse Oximetry 99 01/16/25 11:19 Oxygen Delivery Me thod Room Air 01/16/25 11:19 MDM - Abdominal Pain Medical Decision Making Patient presents with abdominal pain blood work imaging here is normal we will start her on pain meds nausea medicine get her follow-up with surgery she does feel improved she stable for discharge return if worsening. Medical Records I reviewed the patient's medical records. Lab Data I reviewed the patient's lab results. 01/16/25 11:10 01/16/25 11:10 Labs/Radiology: Radiology Impressions Gallbladder Ultrasound 01/16/25 11:09 IMPRESSION: 1. Hepatic steatosis 2. Otherwise negative sonogram of the abdomen Abdomen/Pelvis CT 01/16/25 12:07 IMPRESSION: 1. IUD in good position. 2. Benign cyst left ovary 3. Otherwise No acute findings. Laboratory Results WBC 7.85 10^3/uL (3.29-11.43) 01/16/25 11:10 RBC 5.37 10^6/uL (3.85-5.65) 01/16/25 11:10 Hgb 14.10 g/dL (11.27-16.99) 01/16/25 11:10 Hct 42.8 % (36-47) 01/16/25 11:10 MCV 79.7 fl (85-98) L 01/16/25 11:10 MCH 26.3 pg (27-33) L 01/16/25 11:10 MCHC 32.9 g/dL (30-55) 01/16/25 11:10 RDW 12.9 % (12.1-15.1) 01/16/25 11:10 Plt Count 369 10^3/cmm (157-399) 01/16/25 11:10 MPV 8.6 fL (7.4-10.4) 01/16/25 11:10 Neut % (Auto) 71.8 % 01/16/25 11:10 Lymph % (Auto) 22.2 % 01/16/25 11:10 [place] % (Auto) 3.7 % 01/16/25 11:10 Eos % (Auto) 1.3 % 01/16/25 11:10 Baso % (Auto) 0.6 % 01/16/25 11:10 Neut # (Auto) 5.64 10^3/uL (1.8-7.7) 01/16/25 11:10 Lymph # (Auto) 1.7 10^3/uL (0.8-4.8) 01/16/25 11:10 [place] # (Auto) 0.3 10^3/uL (0.2-0.9) 01/16/25 11:10 Eos # (Auto) 0.1 10^3/uL (0.0-0.8) 01/16/25 11:10 Baso # (Auto) 0.1 10^3/uL (0.0-0.1) 01/16/25 11:10 Nucleated RBC % (auto) 0 % 01/16/25 11:10 Nucleated RBCs # 0.0 /100WBC 01/16/25 11:10 Sodium 138 mmol/L (136-145) 01/16/25 11:10 Potassium 3.5 mmol/L (3.5-5.1) 01/16/25 11:10 Chloride 99 mmol/L (98-107) 01/16/25 11:10 Carbon Dioxide 25 mmol/L (22-29) 01/16/25 11:10 Anion Gap 17.5 (5-19) 01/16/25 11:10 BUN 12 mg/dL (6-20) 01/16/25 11:10 Creatinine 0.6 mg/dL (0.5-0.9) 01/16/25 11:10 GFR Calculation 115.9 mL/min (90-130) 01/16/25 11:10 Glucose 145 mg/dL (65-115) H 01/16/25 11:10 Calculated Osmolality 288 mOsm/kg (285-295) 01/16/25 11:10 Calcium 10.1 mg/dL (8.5-10.5) 01/16/25 11:10 Total Bilirubin 0.3 mg/dL (0.15-1.2) 01/16/25 11:10 AST 12 U/L (0-32) 01/16/25 11:10 ALT 12 U/L (0-33) 01/16/25 11:10 Alkaline Phosphatase 86 U/L (35-105) 01/16/25 11:10 Total Protein 8.2 g/dL (6.6-8.7) 01/16/25 11:10 Albumin 4.5 g/dL (3.5-5.2) 01/16/25 11:10 Globulin 3.7 g/dL (1.3-4.6) 01/16/25 11:10 Lipase 24 U/L (13-60) 01/16/25 11:10 HCG, Qual Negative (Negative) 01/16/25 11:10 Urine Color Yellow (Yellow) 01/16/25 11:30 Urine Appearance Cloudy (CLEAR) A 01/16/25 11:30 Urine pH 8.5 (5-7) A 01/16/25 11:30 Ur Specific [place] 1.011 (1.005-1.030) 01/16/25 11:30 Urine Protein Negative (Negative) 01/16/25 11:30 Urine Glucose (UA) Negative (Normal) 01/16/25 11:30 Urine Ketones Negative (Negative) 01/16/25 11:30 Urine Blood Negative (Negative) 01/16/25 11:30 Urine Nitrate Negative (Negative) 01/16/25 11:30 Urine Bilirubin Negative (Negative) 01/16/25 11:30 Urine Urobilinogen 0.2 mg/dL (Negative) 01/16/25 11:30 Ur Leukocyte Esterase 3+ (Negative) A 01/16/25 11:30 Urine RBC 0-2 /hpf (0-2) 01/16/25 11:30 Urine WBC 21-50 /hpf (0-5) H 01/16/25 11:30 Ur Squamous Epith Cells 11-20 /hpf (0-5) H 01/16/25 11:30 Amorphous Sediment Not Reportable 01/16/25 11:30 Urine Bacteria 1+ /hpf (NONE) H 01/16/25 11:30 Hyaline Casts 0.40 /lpf 01/16/25 11:30 All radiology interpretation(s) finalized by discharge Discharge Plan Discharge Patient Disposition: Home Clinical Impression: Abdominal pain Condition: Stable Prescriptions: New hydrocodone-acetaminophen 5-325 mg tablet 1 tab PO Q6H PRN (Reason: pain) Qty: 14 0RF ondansetron 4 mg tablet,disintegrating 4 mg PO Q6H PRN (Reason: nausea and vomiting) Qty: 14 0RF No Action dicyclomine 20 mg tablet 20 mg PO QID PRN (Reason: abdominal pain) Qty: 20 0RF indomethacin 50 mg capsule 50 mg PO ONCE Rx Instructions: administer with food or milk flecainide 50 mg tablet 50 mg PO BID famotidine 40 mg tablet 40 mg PO DAILY magnesium gluconate 27 mg magnesium (500 mg) tablet 27 mg PO TID alprazolam [Xanax] 0.5 mg Tablet 0.5 mg PO TID PRN (Reason: Anxiety) fluoxetine 40 mg capsule 40 mg PO BEDTIME potassium chloride 10 mEq capsule, extended release 100 meq PO 5XD ondansetron 8 mg tablet,disintegrating 8 mg PO .Q4-6H PRN (Reason: Nausea And Vomiting) cyclobenzaprine 10 mg tablet 10 mg PO DAILY PRN (Reason: muscle spasms) Drysol Dab-O-Matic 20 % solution See Rx Instructions .ROUTE .COMPLEX Rx Instructions: 1 applic topically twice weekly at bedtime. gabapentin 300 mg capsule 300 mg PO TID atenolol 25 mg tablet 25 mg PO DAILY bisoprolol fumarate 5 mg tablet 2.5 mg PO DAILY alum-mag hydroxide-simeth [Mylanta] 200-200-20 mg/5 mL Suspension 15 ml PO QID PRN (Reason: Stomach Upset) Rx Instructions: administer between meals and at bedtime Discharge Orders: Discharge ED (Routine); Ordered 01/16/25 Ordered By: Prudencio Rosa Referrals: Ronny Calle MD [Physician, General Surgery] - 4-7 days Armijo,CHUNG Jarrett [Primary Care Provider, Nurse Practitioner] Discharge Diet: Advance as tolerated Discharge Activity: Resume usual activity Patient Instructions: Abdominal Pain (ED), Opioid Safety Print Language: Nigerien Coding Level of Care Code ED Ski Patrol for Melany Yip
[2025-01-16 11:17] LABS: Basophils # 0.1 10^3/uL (0.0-0.1); Basophils % 0.6 %; Eosinophils # 0.1 10^3/uL (0.0-0.8); Eosinophils % 1.3 %; Hematocrit 42.8 % (36-47); Lymphocytes # 1.7 10^3/uL (0.8-4.8); Lymphocytes % 22.2 %; Mean Corpuscular HGB Conc 32.9 g/dL (30-55); Mean Corpuscular Hemoglobin 26.3 pg (27-33); Mean Corpuscular Volume 79.7 fl (85-98); Mean Platelet Volume 8.6 fL (7.4-10.4); Monocytes # 0.3 10^3/uL (0.2-0.9); Monocytes % 3.7 %; Neutrophils # 5.64 10^3/uL (1.8-7.7); Neutrophils % 71.8 %; Nucleated Red Blood Cells % 0 %; Platelet Count 369 10^3/cmm (157-399); Red Blood Count 5.37 10^6/uL (3.85-5.65); Red Cell Distribution Width 12.9 % (12.1-15.1); White Blood Count 7.85 10^3/uL (3.29-11.43)
[2025-01-16 11:19] VITALS: BP 132/81; RESP 18; O2SAT 99
[2025-01-16] MEDS: HYDROmorphone 0.5 MG/0.5 ML INJ 1 MG IVP (11:21)
[2025-01-16] MEDS: ondansetron 2 mg/ML SDV 2 mL 4 MG IVP (11:21)
[2025-01-16 11:25] LABS: HCG, Serum Qual Negative (Negative)
[2025-01-16 11:33] LABS: Alanine Aminotransferase 12 U/L (0-33); Albumin Level 4.5 g/dL (3.5-5.2); Alkaline Phosphatase 86 U/L (35-105); Anion Gap 17.5 (5-19); Aspartate Amino Transferase 12 U/L (0-32); Blood Urea Nitrogen 12 mg/dL (6-20); Calcium 10.1 mg/dL (8.5-10.5); Carbon Dioxide 25 mmol/L (22-29); Chloride 99 mmol/L (98-107); Creatinine Clr Calc Pharmacy 143.9203; Globulin 3.7 g/dL (1.3-4.6); Glomerular Filtration Rate 115.9 mL/min (90-130); Glucose 145 mg/dL (65-115); Lipase 24 U/L (13-60); Osmolality Calculated 288 mOsm/kg (285-295); Potassium 3.5 mmol/L (3.5-5.1); Sodium 138 mmol/L (136-145); Total Bilirubin 0.3 mg/dL (0.15-1.2); Total Protein 8.2 g/dL (6.6-8.7)
[2025-01-16 11:39] LABS: Bilirubin Urine Negative (Negative); Blood Urine Negative (Negative); Glucose Urine UA Negative (Normal); Ketones Urine Negative (Negative); Leukocyte Esterase Urine 3+ (Negative); Nitrate Urine Negative (Negative); Protein Urine Negative (Negative); Specific Gravity, Urine 1.011 (1.005-1.030); Urine Appearance Cloudy (CLEAR); Urine Color Yellow (Yellow); Urobilinogen Urine 0.2 mg/dL (Negative); pH Urine 8.5 (5-7)
[2025-01-16 11:41] LABS: Add Urine Microscopic? YES; Bacteria Urine 1+ /hpf; RBC Urine 0-2 /hpf (0-2); WBC Urine 21-50 /hpf (0-5)
--- NOTE | 2025-01-16 12:07 | CTR_ITS ---
PROCEDURE INFORMATION: Exam: CT Abdomen And Pelvis With Contrast Exam date and time: 01/16/2025 12:33 PM Age: 34 years old Clinical indication: Abdominal pain; Acute; Additional info: Abd pain TECHNIQUE: Imaging protocol: Computed tomography of the abdomen and pelvis with contrast. Radiation optimization: All CT scans at this facility use at least one of these dose optimization techniques: automated exposure control; mA and/or kV adjustment per patient size (includes targeted exams where dose is matched to clinical indication); or iterative reconstruction. Contrast material: OMNIPAQUE 350; Contrast volume: 100 ml; Contrast route: INTRAVENOUS (IV); COMPARISON: CT abdomen pelvis w con* [id number] 11/26/2020 5:49 AM RADIATION DOSE METRICS: Total DLP (mGy-cm): 784.73 FINDINGS: Liver: Hepatomegaly liver span is 18 cm. No mass. Gallbladder and biliary ducts: Normal. No calcified stones. No ductal dilation. Pancreas: Normal. No ductal dilation. Spleen: Normal. No splenomegaly. Adrenal glands: Normal. No mass. Kidneys and ureters: Normal. No hydronephrosis. Stomach and bowel: Unremarkable. No obstruction. No mucosal thickening. Appendix: No evidence of appendicitis. Intraperitoneal space: Unremarkable. No free air. No significant fluid collection. Vasculature: Unremarkable. No abdominal aortic aneurysm. Lymph nodes: Unremarkable. No enlarged lymph nodes. Urinary bladder: Unremarkable as visualized. Reproductive: There is an IUD visualized in good position. There is a benign ovarian cyst in the left adnexa 30 mm x 37 mm. Bones/joints: Unremarkable. No acute fracture. Soft tissues: Unremarkable. CT/CT abdomen pelvis w con* [id number] IMPRESSION: 1. IUD in good position. 2. Benign cyst left ovary 3. Otherwise No acute findings.
[2025-01-16] MEDS: iohexol 350 mg/mL 500 mL Btl (per mL) IV (12:29)
[2025-01-16 13:53] VITALS: BP 105/78; PULSE 87; O2SAT 98
--- NOTE | 2025-01-17 07:30 | DCPLANNER ---
messaged gen surg for er f/u
== END 2025-01-16 13:53 | disposition home or self-care (01) ==
PROVIDERS: Emergency Provider Emergency Medicine; PCP Nurse Practitioner Family
DX: R10.9 Unspecified abdominal pain (principal); R07.9 Chest pain, unspecified
CPT/HCPCS: 36415; 74177; 76705; 80053; 81001; 83690; 84703; 85025; 96374; 96375; 99285; J1171; J2405

== ENCOUNTER 2025-01-19 08:11 | Emergency (ER) | payer BC, MEDICAID, SELFPAY ==
[2025-01-19 08:15] VITALS: BP 115/73; PULSE 110; RESP 20; TEMP 36.7; O2SAT 98; BMI 35.4
--- NOTE | 2025-01-19 08:17 | ECG_ITS ---
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 Measurements Intervals [place] Rate: 101 P: 77 ND: 127 QRS: 87 QRSD: 93 T: -77 QT: 326 QTc: 423 Interpretive Statements SINUS TACHYCARD[address] ST DEVIATION AND MODERATE T-WAVE ABNORMALITY, CONSIDER ANTEROLATERAL ISCHEMIA [-0.1+ mV T-WAVE IN V3-V6] ST DEVIATION AND MODERATE T-WAVE ABNORMALITY, CONSIDER INFERIOR ISCHEMIA [-0.1+ mV T-WAVE IN II/aVF] INTERPRETATION BASED ON A DEFAULT AGE OF 40 YEARS Compared to ECG 10/11/2023 12:47:57 Possible ischemia now present Sinus rhythm no longer present T-wave abnormality still present Electronically Signed On 01-20-2025 06:03:48 CDT by Caridad Mitchell M.D. [id number]
--- NOTE | 2025-01-19 08:18 | XR_ITS ---
WS: [id number] Portable AP upright chest, 01/19/2025 Clinical Data: dyspnea/cough Comparison: Portable chest, 12/05/2023 Findings: No nodules, masses or effusions are seen. The heart is normal. The pulmonary vascularity is not increased. No pneumonia or pneumothorax is seen. XR/XR chest 1V portable [id number] Impression: Negative chest.
--- NOTE | 2025-01-19 08:19 | ED_ITS ---
HPI - Chest Pain 2 General: Chief Complaint: Chest Pain Stated Complaint: blood in urine, chest pain Time Seen by Provider: 01/19/25 08:18 History of Present Illness: 34-year-old female presents emergency ro om complaining of chest pain. She also noticed some hematuria. She denies any fever sweats or chills. Pain at times radiates to her left shoulder is worse when she takes a deep breath. She has had problems with reflux in the past. She has not had any shortness of breath she has not had any fever sweats or chills. No history of any arrhythmias. Associated symptoms: Deny abdominal pain, dyspnea or fever(s) Related Data Home Medications ?Medication ?Instructions ?Recorded ?Confirmed alprazolam 0.5 mg tablet (Xanax) 0.5 mg PO TID PRN Anx iety 03/17/23 01/19/25 fluoxetine 40 mg capsule 40 mg PO BEDTIME 03/17/23 potassium chloride 10 mEq 100 meq PO 5XD 03/17/2301/02 capsule,extended release ondansetron 8 mg disintegrating 8 mg PO .Q4-6H PRN [place] And 10/11/23 01/19/25 tablet Vomiting gabapentin 300 mg capsule 300 mg PO TID PRN nerve pain 12/05/23 01/19/25 indomethacin 50 mg capsule 50 mg PO QAM 12/24/2301/19 magnesium gluconate 27 mg 27 mg PO TID 06/17/24 magnesium (500 mg) tablet aluminum-mag hydroxide-simethicone 15 ml PO QID PRN St omach Upset 01/16/25 01/19/25 200 mg-200 mg-20 mg/5 mL oral susp atenolol 25 mg tablet 25 mg PO DAILY 01/16/2501/02 bisoprolol fumarate 5 mg tablet 2.5 mg PO DAILY 01/19/25 sucralfate 1 gram tablet 1 g PO TID 01/19/25 01/19/25 Previous Rx's ?Medication ?Instructions ?Recorded dicyclomine 20 mg tablet 20 mg PO QID PRN abdominal p ain 01/13/25 #20 tabs hydrocodone 5 mg-acetaminophen 325 1 tab PO Q6H PRN pa in #14 tabs 01/16/25 mg tablet cefdinir 300 mg capsule 300 mg PO BID #14 caps 01/19 pantoprazole 40 mg tablet,delayed 40 mg PO BID #60 tab s 01/19/25 release phenazopyridine 200 mg tablet 200 mg PO TID 6 doses #6 tabs 01/19/25 (Pyridium) promethazine 25 mg tablet 25 mg PO Q6H PRN nausea and 01/19/25 vomiting #20 tabs Allergies Allergy/AdvReac Type Severity Reaction Status Date / Time ibuprofen Allergy ALGY-Rash Verified 01/13/25 09:04 Review of Systems 2 Const: Denies: fever(s) or chills Card: Denies: chest pain Resp: Denies: dyspnea GI: Denies: abdominal pain : Denies: dysuria, urinary frequency or urinary urgency Musc: Denies: neck pain or back pain Skin/Breast: Denies: rash PFSH ED 2 PFSH: Medical History Chest pain Vaginal delivery Bartter syndrome Social History Smoking and tobacco/nicotine status: never used tobacco/nicotine Alcohol intake: never Substance/Drug Use: never Physical Exam 2 Const: GENERAL APPEARANCE: cooperative ORIENTATION/CONSCIOUSNESS: Yes awake, Yes oriented to person, Yes oriented to place and Yes oriented to time HENMT: COMMON NORMALS: normocephalic, atraumatic and hearing grossly normal bilaterally HEAD & SCALP: normocephalic and atraumatic Resp: COMMON NORMALS: normal respiratory effort, No retractions, No use of accessory muscles and clear to auscultation bilaterally AUSCULTATION: clear to auscultation bilaterally Cardio: COMMON NORMALS: regular rate, regular rhythm and No murmurs present (Cardio) RATE: regular rate RHYTHM: regular rhythm GI: COMMON NORMALS: Soft to palpation and No hepatosplenomegaly present A USCULTATION: Yes normoactive bowel sounds PALPATION: Yes Soft to palpation, No Tenderness to palpation present (GI), No Guarding due to palpation present (GI) and Yes No hepatosplenomegaly present Extremity: COMMON NORMALS: normal to inspection, capillary refill normal, no clubbing, cyanosis or edema, no calf tenderness and no pedal edema Neuro: SENSORIUM/ORIENTATION: Yes oriented to person, Yes oriented to place and Yes oriented to time Skin: COMMON NORMALS: no rashes or lesions noted GENERAL SKIN EXAM: no rashes or lesions noted Course 2 Vital Signs: Vital signs: Vital Signs Temperature 98.1 F 01/19/25 08:15 Pulse Rate 78 01/19/25 11:52 Respiratory Rate 20 H 01/19/25 08:15 Blood Pressure 119/88 01/19/25 11:52 Pulse Oximetry 99 01/19/25 11:52 Oxygen Delivery Me thod Room Air 01/19/25 08:57 MDM - Chest Pain Medical Decision Making Significant hematuria no leukocytosis CT for evaluation of kidneys ureter and bladder was negative.. Her pain is improved. Suspect she is getting some esophageal spasm and reflux is causing chest discomfort there is no sign of kidney stone on the CT. Will treat as if she has a cystitis urine was cultured discharged home with promethazine as well as antibiotics. Recheck if worsening or change. Medical Records I reviewed the patient's medical records. Lab Data I reviewed the patient's lab results. 01/19/25 09:02 01/19/25 09:02 Radiology Impressions Chest X-Ray 01/19/25 08:18 Impression: Negative chest. Abdomen/Pelvis CT 01/19/25 08:47 IMPRESSION: 1. Hepatomegaly. 2. IUD in place. 3. Stable LEFT ovarian cyst measuring 2.2 x 2.3 cm. 4. Normal appendix. 5. No hydronephrosis in either kidney. 6. Tiny esophageal hernia. 7. No other acute findings. Laboratory Results WBC 10.44 10^3/uL (3.29-11.43) 01/19/25 09:02 RBC 5.08 10^6/uL (3.85-5.65) 01/19/25 09:02 Hgb 13.40 g/dL (11.27-16.99) 01/19/25 09:02 Hct 40.5 % (36-47) 01/19/25 09:02 MCV 79.7 fl (85-98) L 01/19/25 09:02 MCH 26.4 pg (27-33) L 01/19/25 09:02 MCHC 33.1 g/dL (30-55) 01/19/25 09:02 RDW 13.0 % (12.1-15.1) 01/19/25 09:02 Plt Count 319 10^3/cmm (157-399) 01/19/25 09:02 MPV 8.7 fL (7.4-10.4) 01/19/25 09:02 Neut % (Auto) 81.7 % 01/19/25 09:02 Lymph % (Auto) 12.9 % 01/19/25 09:02 [place] % (Auto) 3.6 % 01/19/25 09:02 Eos % (Auto) 1.1 % 01/19/25 09:02 Baso % (Auto) 0.5 % 01/19/25 09:02 Neut # (Auto) 8.53 10^3/uL (1.8-7.7) H 01/19/25 09:02 Lymph # (Auto) 1.4 10^3/uL (0.8-4.8) 01/19/25 09:02 [place] # (Auto) 0.4 10^3/uL (0.2-0.9) 01/19/25 09:02 Eos # (Auto) 0.1 10^3/uL (0.0-0.8) 01/19/25 09:02 Baso # (Auto) 0.1 10^3/uL (0.0-0.1) 01/19/25 09:02 Nucleated RBC % (auto) 0 % 01/19/25 09:02 Nucleated RBCs # 0.0 /100WBC 01/19/25 09:02 Sodium 139 mmol/L (136-145) 01/19/25 09:02 Potassium 3.1 mmol/L (3.5-5.1) L 01/19/25 09:02 Chloride 101 mmol/L (98-107) 01/19/25 09:02 Carbon Dioxide 25 mmol/L (22-29) 01/19/25 09:02 Anion Gap 16.1 (5-19) 01/19/25 09:02 BUN 13 mg/dL (6-20) 01/19/25 09:02 Creatinine 0.7 mg/dL (0.5-0.9) 01/19/25 09:02 GFR Calculation 97.0 mL/min (90-130) 01/19/25 09:02 Glucose 124 mg/dL (65-115) H 01/19/25 09:02 Calculated Osmolality 290 mOsm/kg (285-295) 01/19/25 09:02 Calcium 9.6 mg/dL (8.5-10.5) 01/19/25 09:02 Total Bilirubin 0.5 mg/dL (0.15-1.2) 01/19/25 09:02 AST 15 U/L (0-32) 01/19/25 09:02 ALT 13 U/L (0-33) 01/19/25 09:02 Alkaline Phosphatase 81 U/L (35-105) 01/19/25 09:02 Total Protein 7.9 g/dL (6.6-8.7) 01/19/25 09:02 Albumin 4.2 g/dL (3.5-5.2) 01/19/25 09:02 Globulin 3.7 g/dL (1.3-4.6) 01/19/25 09:02 Lipase 21 U/L (13-60) 01/19/25 09:02 Urine Color Red (Yellow) A 01/19/25 08:30 Urine Appearance Cloudy (CLEAR) A 01/19/25 08:30 Urine pH TNP 01/19/25 08:30 Ur Specific [place] TNP 01/19/25 08:30 Urine Protein TNP 01/19/25 08:30 Urine Glucose (UA) TNP 01/19/25 08:30 Urine Ketones TNP 01/19/25 08:30 Urine Blood TNP 01/19/25 08:30 Urine Nitrate TNP 01/19/25 08:30 Urine Bilirubin TNP 01/19/25 08:30 Urine Urobilinogen TNP 01/19/25 08:30 Ur Leukocyte Esterase TNP 01/19/25 08:30 Urine RBC >100 /hpf (0-2) H 01/19/25 08:30 Urine WBC 0-4 /hpf (0-5) H 01/19/25 08:30 Ur Squamous Epith Cells 0-4 /hpf (0-5) H 01/19/25 08:30 Amorphous Sediment Not Reportable 01/19/25 08:30 Urine Bacteria 1+ /hpf (NONE) H 01/19/25 08:30 All radiology interpretation(s) finalized by discharge EKG Data EKG 1: Computer generated interpretation: EKG January 19, [id number] sinus tachycardia nonspecific ST-T changes. Q waves in 2 3 and aVF. T wave inversion in 2 3 aVF and V3 for 5 and 6. EKG compared to 10/11/2023 no significant changes Discharge Plan Discharge Patient Disposition: Home Clinical Impression: Atypical chest pain, Cystitis, Esophageal hernia Condition: Stable Prescriptions: New cefdinir 300 mg capsule 300 mg PO BID Qty: 14 0RF phenazopyridine [Pyridium] 200 mg tablet 200 mg PO TID Qty: 6 0RF promethazine 25 mg tablet 25 mg PO Q6H PRN (Reason: nausea and vomiting) Qty: 20 0RF pantoprazole 40 mg tablet,delayed release (DR/EC) 40 mg PO BID Qty: 60 0RF Discontinued famotidine 40 mg tablet 40 mg PO DAILY pantoprazole 40 mg tablet,delayed release (DR/EC) 40 mg PO QAM No Action dicyclomine 20 mg tablet 20 mg PO QID PRN (Reason: abdominal pain) Qty: 20 0RF indomethacin 50 mg capsule 50 mg PO QAM Rx Instructions: administer with food or milk magnesium gluconate 27 mg magnesium (500 mg) tablet 27 mg PO TID alprazolam [Xanax] 0.5 mg Tablet 0.5 mg PO TID PRN (Reason: Anxiety) fluoxetine 40 mg capsule 40 mg PO BEDTIME potassium chloride 10 mEq capsule, extended release 100 meq PO 5XD ondansetron 8 mg tablet,disintegrating 8 mg PO .Q4-6H PRN (Reason: Nausea And Vomiting) gabapentin 300 mg capsule 300 mg PO TID PRN (Reason: nerve pain) sucralfate 1 gram tablet 1 g PO TID atenolol 25 mg tablet 25 mg PO DAILY bisoprolol fumarate 5 mg tablet 2.5 mg PO DAILY alum-mag hydroxide-simeth [Mylanta] 200-200-20 mg/5 mL Suspension 15 ml PO QID PRN (Reason: Stomach Upset) Rx Instructions: administer between meals and at bedtime hydrocodone-acetaminophen 5-325 mg tablet 1 tab PO Q6H PRN (Reason: pain) Qty: 14 0RF Discharge Orders: Discharge ED (Routine); Ordered 01/19/25 Ordered By: Manuelito L Horstman Referrals: Armijo,Luiza, [employer]POSAL AGENT [Primary Care Provider, Nurse Practitioner] Patient Instructions: Opioid Safety, Pain Management Print Language: Honduran Coding Level of Care Code ED Research Computing Specialist for Melany Yip
--- NOTE | 2025-01-19 08:47 | CT_ITS ---
WS: [id number] CT ABDOMEN PELVIS TECHNIQUE: Noncontrast CT of the abdomen and pelvis with coronal and sagittal reformatted images. CLINICAL INFORMATION: flank pain COMPARISON: 01/16/25 DLP: 780.[address] scans at [facility] use at least one of these dose optimization techniques: automated exposure control; mA and/or kV adjustment per patient size (includes targeted exams where dose is matched to clinical indication); or iterative reconstruction. FINDINGS: No hydronephrosis in either kidney. No obstructing renal or ureteral calculi. LEFT ovarian cyst unchanged measuring 2.2 x 2.[address] Lung bases are well aerated. Hepatomegaly. Tiny esophageal hiatal hernia. Normal noncontrast pancreas and spleen. Adrenal glands are normal. Normal caliber abdominal aorta. Tiny fat-containing umbilical hernia. Normal appendix in the RIGHT lower quadrant. CT/CT kidney stone [id number] IMPRESSION: 1. Hepatomegaly. 2. IUD in place. 3. Stable LEFT ovarian cyst measuring 2.2 x 2.3 cm. 4. Normal appendix. 5. No hydronephrosis in either kidney. 6. Tiny esophageal hernia. 7. No other acute findings.
[2025-01-19 08:57] VITALS: PULSE 101; O2SAT 97
[2025-01-19] MEDS: morphine 4 mg/mL SDV 1 mL IVP ×2 (09:10→10:33)
[2025-01-19] MEDS: ondansetron 2 mg/ML SDV 2 mL 4 MG IVP ×2 (09:10→10:31)
[2025-01-19 09:22] LABS: Basophils # 0.1 10^3/uL (0.0-0.1); Basophils % 0.5 %; Eosinophils # 0.1 10^3/uL (0.0-0.8); Eosinophils % 1.1 %; Hematocrit 40.5 % (36-47); Lymphocytes # 1.4 10^3/uL (0.8-4.8); Lymphocytes % 12.9 %; Mean Corpuscular HGB Conc 33.1 g/dL (30-55); Mean Corpuscular Hemoglobin 26.4 pg (27-33); Mean Corpuscular Volume 79.7 fl (85-98); Mean Platelet Volume 8.7 fL (7.4-10.4); Monocytes # 0.4 10^3/uL (0.2-0.9); Monocytes % 3.6 %; Neutrophils # 8.53 10^3/uL (1.8-7.7); Neutrophils % 81.7 %; Nucleated Red Blood Cells % 0 %; Platelet Count 319 10^3/cmm (157-399); Red Blood Count 5.08 10^6/uL (3.85-5.65); White Blood Count 10.44 10^3/uL (3.29-11.43)
[2025-01-19 09:43] LABS: Alanine Aminotransferase 13 U/L (0-33); Albumin Level 4.2 g/dL (3.5-5.2); Alkaline Phosphatase 81 U/L (35-105); Anion Gap 16.1 (5-19); Aspartate Amino Transferase 15 U/L (0-32); Blood Urea Nitrogen 13 mg/dL (6-20); Calcium 9.6 mg/dL (8.5-10.5); Carbon Dioxide 25 mmol/L (22-29); Chloride 101 mmol/L (98-107); Creatinine Clr Calc Pharmacy 123.3603; Globulin 3.7 g/dL (1.3-4.6); Glucose 124 mg/dL (65-115); Lipase 21 U/L (13-60); Osmolality Calculated 290 mOsm/kg (285-295); Potassium 3.1 mmol/L (3.5-5.1); Sodium 139 mmol/L (136-145); Total Bilirubin 0.5 mg/dL (0.15-1.2); Total Protein 7.9 g/dL (6.6-8.7)
[2025-01-19 10:01] LABS: Add Urine Culture? Yes; Add Urine Microscopic? YES; Bacteria Urine 1+ /hpf; RBC Urine >100 /hpf (0-2); Squamous Epithelial Cell Urine 0-4 /hpf (0-5); UA Manual Slide Review YES; UA Slide Review UA Slide Review Perf; Urine Appearance Cloudy (CLEAR); Urine Color Red (Yellow); WBC Urine 0-4 /hpf (0-5)
[2025-01-19] MEDS: cefTRIAXone 1,000 mg SDV 1000 MG IVP (10:33)
[2025-01-19] MEDS: lidocaine 2% viscous 15 ML, aluminum-mag hydrox-simethicon 30 ML, sucralfate oral liq 1 GM PO (10:35)
[2025-01-19 10:40] VITALS: BP 121/77; PULSE 94; O2SAT 98
[2025-01-19 11:52] VITALS: BP 119/88; PULSE 78; O2SAT 99
== END 2025-01-19 11:54 | disposition home or self-care (01) ==
PROVIDERS: Emergency Provider Family Medicine; PCP Nurse Practitioner Family
DX: R07.89 Other chest pain (principal); N30.90 Cystitis, unspecified without hematuria; K44.9 Diaphragmatic hernia without obstruction or gangrene
CPT/HCPCS: 71045; 74176; 80053; 81001; 83690; 85025; 87086; 93005; 96374; 96375; 96376; 99285; J0696; J2270; J2405; J9999

== ENCOUNTER 2025-01-25 08:18 | Day surgery (SDC) | payer BC, MEDICAID, SELFPAY ==
[2025-01-25 08:44] VITALS: BP 111/86; PULSE 98; RESP 17; TEMP 36.3; O2SAT 99; BMI 35.4
[2025-01-25] MEDS: sodium chloride 0.9% 1,000 ML 15 ML IV (08:54)
--- NOTE | 2025-01-25 09:10 | ANES.PREANE2 ---
Pre-Anesthetic Assessment Height/Weight: Height 1.6 m Weight 90.718 kg Temp Pulse Resp BP Pulse Ox O2 Del Method 97.4 F L 98 17 111/86 99 Room Air 01/25/25 08:44 01/25/25 08:44 01/25/25 08:44 01/25/25 08:44 01/25/25 08:44 01/25/25 08:44 Preop Diagnosis: heartburn Operation Date: 01/25/25 09:30 Proposed Procedures p EGD with Biopsy [id number], R12 R10.9(Not Applicable) - Ronny Calle MD Familial anesthetic complications: none Was Beta Horacio taken within 24 hours: N/A Was Clonidine taken within 24 hours: N/A Last intake: Intake Last Liquid Date 01/24/25 Last Liquid Time 21:00 Last Solid Date 01/24/25 Last Solid Time 19:00 Social No alcohol and No tobacco Exam alert and oriented x 3 Airway Submandibular: within normal limits Cervical ROM: within normal limits Mallampati: Class II Dentition: full Pulmonary None reported CV/HEM Arrythmia (tachy) and Palpitations (when K+ gets low. ) Bartter syndrome- takes potassium supplements regularly. took last night. BMP pending. Hepatic None reported GI Gastroesophageal Reflux Disease Metabolic None reported Musc/skel None reported Neuropsych Anxiety and Depression Anesthetic Plan ASA status: 3 Anesthesia: Anesthesia Evaluation and MAC Risk of > 500 ml blood loss (7ml/kg in children): No Medications/Allergies Home Medications ?Medication ?Instructions ?Recorded ?Confirmed ?Last Taken ?Type alprazolam 0.5 mg tablet (Xanax) 0.5 mg PO TID PRN Anxiety 03/17/23 01/25/25 01/24/25 History fluoxetine 40 mg capsule 40 mg PO BEDTIME 03/17/23 01/25/25 01/24/25 History potassium chloride 10 mEq 100 meq PO 5XD 03/17/23 01/25/25 01/24/25 History capsule,extended release ondansetron 8 mg disintegrating 8 mg PO .Q4-6H PRN Nausea And 10/11/23 01/25/25 01/20/25 History tablet Vomiting gabapentin 300 mg capsule 300 mg PO TID PRN nerve pain 12/05/23 01/25/25 01/24/25 History indomethacin 50 mg capsule 50 mg PO QAM 12/24/23 01/25/25 01/24/25 History magnesium gluconate 27 mg 27 mg PO TID 06/17/24 01/25/25 01/24/25 History magnesium (500 mg) tablet dicyclomine 20 mg tablet 20 mg PO QID PRN abdominal pain 01/13/25 01/25/25 01/24/25 Rx #20 tabs aluminum-mag hydroxide-simethicone 15 ml PO QID PRN Stomach Upset 01/16/25 01/25/25 01/17/25 History 200 mg-200 mg-20 mg/5 mL oral susp atenolol 25 mg tablet 25 mg PO DAILY 01/16/25 01/25/25 01/24/25 History hydrocodone 5 mg-acetaminophen 325 1 tab PO Q6H PRN pain #14 tabs 01/16/25 01/25/25 01/20/25 Rx mg tablet cefdinir 300 mg capsule 300 mg PO BID #14 caps 01/19/25 01/25/25 01/24/25 Rx pantoprazole 40 mg tablet,delayed 40 mg PO BID #60 tabs 01/19/25 01/25/25 01/24/25 Rx release phenazopyridine 200 mg tablet 200 mg PO TID 6 doses #6 tabs 01/19/25 01/25/25 01/21/25 Rx (Pyridium) promethazine 25 mg tablet 25 mg PO Q6H PRN nausea and 01/19/25 01/25/25 Unknown Rx vomiting #20 tabs sucralfate 1 gram tablet 1 g PO TID 01/19/25 01/25/25 Unknown History Allergies Allergy/AdvReac Type Severity Reaction Status Date / Time ibuprofen Allergy ALGY-Rash Verified 01/25/25 08:41 Current Medications Generic Name Dose Route Start Last Admin Trade Name Freq PRN Reason Stop Dose Admin Sodium Chloride 1,000 mls @ 15 mls/hr 01/25/25 08:31 01/25/25 08:54 Sodium Chloride 0.9% IV 01/26/25 08:30 15 mls/hr .Q24H PRN Administration COLONOSCOPY FLUIDS PFSH Anesthesia Medical History Chest pain Vaginal delivery Bartter syndrome Social History Smoking and tobacco/nicotine status: never used tobacco/nicotine Alcohol intake: never Substance/Drug Use: never Data Anesthesia 01/25/25 08:53
--- NOTE | 2025-01-25 09:12 | W.PM.OPSUD ---
Surgery/Procedure H&P Update DATE OF PROCEDURE: January 25, 2025 DATE H&P PERFORMED: 01/20/25 H&P UPDATE INFORMATION: I have reviewed H&P completed within last 30 days, I have examined patient prior to procedure and No changes to prior documentation PLANNED PROCEDURE: Operation Date: 01/25/25 09:30 Proposed Procedures p EGD with Biopsy [id number], R12 R10.9(Not Applicable) - Ronny Calle MD
[2025-01-25 09:30] LABS: Anion Gap 18.3 (5-19); Blood Urea Nitrogen 12 mg/dL (6-20); Calcium 9.5 mg/dL (8.5-10.5); Carbon Dioxide 25 mmol/L (22-29); Chloride 98 mmol/L (98-107); Creatinine Clr Calc Pharmacy 143.9203; Glomerular Filtration Rate 115.9 mL/min (90-130); Glucose 145 mg/dL (65-115); Osmolality Calculated 288 mOsm/kg (285-295); Potassium 3.3 mmol/L (3.5-5.1); Sodium 138 mmol/L (136-145)
[2025-01-25 09:45] VITALS: BP 124/89; PULSE 100; RESP 16; TEMP 36.8; O2SAT 92
--- NOTE | 2025-01-25 09:49 | ANE.PACU2 ---
Inpatient post-anesthesia follow up: Airway intact: Yes Vital signs: Temperature 98.2 F Pulse Rate 98 Respiratory Rate 17 Blood Pressure 111/86 Pulse Oximetry 99 Oxygen Delivery Me thod Room Air Oxygen Flow Rate Fraction of Inspir ed Oxygen Hydration adequate: Yes Nausea and vomiting: No Pain level: 1 Mental status: Baseline
[2025-01-25 10:03] VITALS: BP 129/98; PULSE 92; RESP 16; O2SAT 96
[2025-01-26 10:07] LABS: OR HCG Qualitative Urine Negative (Negative)
== END 2025-01-25 10:13 | disposition home or self-care (01) ==
PROVIDERS: Anesthesiology; PCP Nurse Practitioner Family; Visit Provider Student in an Organized Health Care Education/Training Program
PROC: 0DJ08ZZ Inspection of Upper Intestinal Tract, Via Natural or Artificial Opening Endoscopic (ICD-10-PCS; principal; 2025-01-25 09:30)
DX: K25.7 Chronic gastric ulcer without hemorrhage or perforation (principal); K21.9 Gastro-esophageal reflux disease without esophagitis; K29.50 Unspecified chronic gastritis without bleeding; Z79.899 Other long term (current) drug therapy
CPT/HCPCS: 43239; 80048; 81025; 88305; 88342; J2250; J2704; J7030

== ENCOUNTER 2025-01-31 08:34 | Oncology outpatient (recurring) (ONCR) | payer BC, MEDICAID, SELFPAY ==
[2025-01-31] MEDS: sodium chlor 0.9% + KCl 40 mEq 40 MEQ/1,000 ML BAG 250 MEQ IV (10:18)
[2025-01-31] MEDS: magnesium sulfate premix 2 GM/50 ML PIGGYBACK IV (10:23)
[2025-01-31 14:50] VITALS: BP 123/70; PULSE 78; RESP 16; O2SAT 98
[2025-01-31 14:52] VITALS: BP 111/75; PULSE 73; RESP 16; TEMP 36.8; O2SAT 98
[2025-01-31 15:40] LABS: Blood Urea Nitrogen 10 mg/dL (6-20); Calcium 8.9 mg/dL (8.5-10.5); Carbon Dioxide 26 mmol/L (22-29); Chloride 102 mmol/L (98-107); Glomerular Filtration Rate 115.9 mL/min (90-130); Glucose 119 mg/dL (65-115); Magnesium 2.1 mg/dL (1.7-2.3); Osmolality Calculated 288 mOsm/kg (285-295); Sodium 139 mmol/L (136-145)
[2025-01-31 15:44] LABS: Anion Gap 14.3 (5-19); Potassium 3.3 mmol/L (3.5-5.1)
== END 2025-01-31 23:59 | disposition home or self-care (01) ==
PROVIDERS: PCP Nurse Practitioner Family; Visit Provider Nurse Practitioner Family
DX: E87.6 Hypokalemia (principal); E83.42 Hypomagnesemia; Z79.899 Other long term (current) drug therapy
CPT/HCPCS: 80048; 83735; 96365; 96366; 96368; J3475; J9999

== ENCOUNTER 2025-02-17 11:25 | Outpatient (CLI) | payer BC, MEDICAID, SELFPAY ==
--- NOTE | 2025-02-17 11:38 | XR_ITS ---
WS: [id number] XR lumbar spine 2-3V* [id number] REASON FOR EXAM: M54.50 - Low back pain, unspecified FINDINGS: Normal lumbar spine curvatures. No significant compression deformity or focal lesion of the lumbar vertebral bodies. Intervertebral disc spaces are intact and well preserved. No spondylolysis. No significant spondylolisthesis. XR/XR lumbar spine 2-3V* [id number] IMPRESSION: No significant abnormality.
--- NOTE | 2025-02-17 11:38 | XR_ITS ---
WS: [id number] XR sacroiliac jts m 3V [id number] REASON FOR EXAM: M54.50 - Low back pain, unspecified FINDINGS: There is moderate sclerosis along the sacroiliac joint in both the iliac and sacral wings. Joint space intact. Are no erosions, bridging, or fusion. Minimal osteophytosis in the distal portion of the articulation. Remainder of the bony pelvis is unremarkable. Incidental note made of intrauterine contraceptive device which appears properly located. XR/XR sacroiliac jts m 3V [id number] IMPRESSION: . Nonspecific sacroiliitis as above.
[2025-02-17 12:40] LABS: Hematocrit 39.6 % (36-47); Hemoglobin 13.60 g/dL (11.27-16.99); Mean Corpuscular HGB Conc 34.3 g/dL (30-55); Mean Corpuscular Hemoglobin 27.3 pg (27-33); Mean Corpuscular Volume 79.5 fl (85-98); Nucleated Red Blood Cells % 0 %; Platelet Count 337 10^3/cmm (157-399); Red Blood Count 4.98 10^6/uL (3.85-5.65); White Blood Count 9.41 10^3/uL (3.29-11.43)
[2025-02-17 13:03] LABS: Alanine Aminotransferase 13 U/L (0-33); Albumin Level 4.4 g/dL (3.5-5.2); Alkaline Phosphatase 78 U/L (35-105); Aspartate Amino Transferase 13 U/L (0-32); Globulin 3.4 g/dL (1.3-4.6); Total Protein 7.8 g/dL (6.6-8.7)
[2025-02-17 13:23] LABS: Hepatitis B Surface Antigen Non-Reactive (Nonreactive)
== END 2025-02-17 11:26 | disposition home or self-care (01) ==
LOC: LAB 11:28
PROVIDERS: PCP Nurse Practitioner Family; Visit Provider Internal Medicine Rheumatology
DX: M54.50 Low back pain, unspecified (principal); M25.50 Pain in unspecified joint
CPT/HCPCS: 36415; 72100; 72202; 80076; 82306; 82565; 83520; 85025; 85651; 86140; 86200; 86431; 86480; 86704; 86803; 87340

== ENCOUNTER 2025-03-15 08:04 | Outpatient (CLI) | payer BC, MEDICAID, SELFPAY ==
--- NOTE | 2025-03-15 08:00 | MR_ITS ---
WS: [id number] MRI PELVIS WITHOUT CONTRAST. COMPARISON: Radiograph 02/17/2025 Multiplanar, multisequence imaging is performed without contrast. History: Possible sacroiliitis. There is no marrow edema involving the SI joints. There is no edema on the sacral or iliac side of the joint spaces. There is a subchondral cyst in the RIGHT ilium measuring 5 mm. There are no erosions. No widening or narrowing of the SI joints. There is no effusion. Symmetric appearance to the sacrum and the nabil. There is no free fluid. No narrowing of the sacral nerve roots. No mass or signal abnormality. Normal appearance of the uterus. No free fluid in the pelvis. Both ovaries contain small follicles. No adenopathy or ascites. Symmetric appearance of the soft tissues and muscles. MR/MR pelvis wo con* [id number] IMPRESSION: 1. No ankylosis of the SI joints. 2. No erosions or edema. No MRI evidence for acute sacroiliitis. 3. Single, subchondral cyst along the RIGHT ilium. These are most typical for degenerative changes of osteoarthritis and likely asymptomatic.
== END 2025-03-15 08:05 | disposition home or self-care (01) ==
LOC: RAD 08:05
PROVIDERS: PCP Nurse Practitioner Family; Visit Provider Internal Medicine Rheumatology
DX: M54.9 Dorsalgia, unspecified (principal); M85.451 Solitary bone cyst, right pelvis
CPT/HCPCS: 72195

== ENCOUNTER → 2025-06-07 10:31 | Outpatient (BNVA) | payer MEDICARE, BC, MEDICAID, SELFPAY | PROVIDERS: PCP Nurse Practitioner Family; Visit Provider Internal Medicine Rheumatology | DX: M13.0 Polyarthritis, unspecified (principal); G90.A Postural orthostatic tachycardia syndrome [POTS]; E26.81 Bartter's syndrome; R23.2 Flushing; Z79.899 Other long term (current) drug therapy; Z71.85 Encounter for immunization safety counseling; M54.89 Other dorsalgia; G89.29 Other chronic pain; Z87.760 Personal history of (corrected) congenital diaphragmatic hernia or other congenital diaphragm malformations; Z98.890 Other specified postprocedural states | CPT/HCPCS: 36415; 80076; 82306; 82565; 84439; 84443; 85025; 85651; 86140; 99215 ==

== ENCOUNTER 2025-07-15 08:57 | Emergency (ER) | payer MEDICARE, MEDICAID, SELFPAY ==
[2025-07-15] VITALS (7 sets, daily range): BP systolic 123–158; BP diastolic 77–111; PULSE 90–123; RESP 13–16; TEMP 36.7; O2SAT 92–96; BMI 31.8
--- NOTE | 2025-07-15 09:29 | W.ED.FEMALGU ---
HPI - Female Genitourinary General: Chief complaint: Urogenital-Female Stated complaint: urinary Time Seen by Provider: 07/15/25 09:18 Source: patient Mode of arrival: ambulatory Limitations: no limitations History of Present Illness: Patient is a nice 35-year-old female presents to ED today with a concern of possible UTI. Patient states over the past 5 to 6 days she has began having dysuria, urinary frequency/urgency and hesitancy. She has also noticed a small amount of blood in her urine. She was reportedly seen at the [facility] walk-in clinic in [facility] where she had a UA performed which was suspicious for a UTI (we did contact the clinic and no culture/sensitivity report was performed). She was subsequently placed on Bactrim which she has been taking since Friday. She does not feel like symptoms have improved. She is complaining of chills and body aches. She does have some mild discomfort across her lower back. No flank pain. No history of urolithiasis. No documented fevers. She has intermittently felt nauseous but has not had any episodes of vomiting. She states she has not had a menstrual cycle in many years as she has a Mirena. Patient appears in no acute distress. She is mildly tachycardic but admittedly is anxious. MD elicited complaint: dysuria and UTI Onset (ago): day(s) Severity: moderate Female Urogenital Radiation: Suprapubic Vaginal discharge: none Vaginal bleeding: none Urinary symptoms: Difficulty Urinating, Dysuria, Frequency, Hematuria and Urgency Exacerbating factors: urination Relieving factors: none Associated symptoms: Reports abdominal pain and nausea; Deny headache(s) Treatment prior to arrival: other (abx) Patient : No Related Data Home Medications ?Medication ?Instructions ?Recorded ?Confirmed alprazolam 0.5 mg tablet (Xanax) 0.5 mg PO TID PRN Anxiety 03/17/23 07/15/25 fluoxetine 40 mg capsule 40 mg PO BEDTIME 03/17/23 07/15/25 potassium chloride 10 mEq 100 meq PO 5XD 03/17/23 07/15/25 capsule,extended release ondansetron 8 mg disintegrating 8 mg PO .Q4-6H PRN Nausea And 10/11/23 07/15/25 tablet Vomiting gabapentin 300 mg capsule 300 mg PO TID PRN nerve pain 12/05/23 07/15/25 magnesium gluconate 27 mg 27 mg PO TID 06/17/24 07/15/25 magnesium (500 mg) tablet aluminum-mag hydroxide-simethicone 15 ml PO QID PRN Stomach Upset 01/16/25 07/15/25 200 mg-200 mg-20 mg/5 mL oral susp cyclobenzaprine 10 mg tablet 10 mg PO TID PRN muscle spasms 02/17/25 07/15/25 ivabradine 5 mg tablet 5 mg PO BID 02/17/25 07/15/25 buspirone 10 mg tablet 10 mg PO BID PRN Anxiety 06/07/25 07/15/25 fluoxetine 20 mg capsule 20 mg PO QAM 06/07/25 07/15/25 midodrine 5 mg tablet 5 mg PO TID 06/07/25 07/15/25 spironolactone 25 mg tablet 25 mg PO DAILY 07/15/25 07/15/25 sulfamethoxazole 800 1 tab PO BID 07/15/25 07/15/25 mg-trimethoprim 160 mg tablet Previous Rx's ?Medication ?Instructions ?Recorded folic acid 1 mg tablet 1 mg PO DAILY #90 tabs 06/07/25 methotrexate sodium 2.5 mg tablet See Rx Instructions PO .week 06/07/25 Rheumatoid Arthritis #50 tabs omeprazole 40 mg capsule,delayed 40 mg PO BID #60 caps 06/07/25 release prednisone 5 mg tablet 5 mg PO DAILY #90 tabs 06/07/25 prednisone 20 mg tablet See Rx Instructions PO .COMPLEX 06/27/25 PRN joint pain flare #30 tabs ciprofloxacin HCl 500 mg tablet 500 mg PO Q12H #14 tabs 07/15/25 (Cipro) Allergies Allergy/AdvReac Type Severity Reaction Status Date / Time ibuprofen Allergy ALGY-Rash Verified 06/07/25 10:59 Review of Systems Const: Reports: chills and body aches; Denies: fatigue or malaise Card: Denies: chest pain Resp: Denies: dyspnea GI: Reports: abdominal pain and nausea; Denies: vomiting, hematemesis, diarrhea, constipation, change in bowel habits, hematochezia or melena : Reports: difficulty voiding, dysuria, urinary frequency, urinary urgency, urinary hesitancy and hematuria; Denies: flank pain, dribbling, vaginal bleeding or pelvic pain Musc: Reports: back pain (across lower back-no flank pain); Denies: neck pain, extremity pain, extremity swelling, joint pain, joint swelling or joint redness Skin/Breast: Denies: rash Neuro: Denies: headache(s), numbness in extremities, weakness in extremities, sensory changes or dizziness PFSH ED PFSH: Medical History Immunization counseling High risk medication use Polyarthralgia Muscle spasms of both lower extremities Gitelman syndrome POTS (postural orthostatic tachycardia syndrome) History of stomach ulcers Chest pain Vaginal delivery Bartter syndrome Surgical History History of bilateral salpingectomy History of bladder repair surgery mesh History of dental surgery Family History Other Breast cancer CAD (coronary artery disease) Diabetes Hyperlipidemia Hypertension Stroke Denies family history of Lupus (systemic lupus erythematosus) Rheumatoid arthritis Migraines Chronic kidney disease (CKD) Social History Smoking and tobacco/nicotine status: never used tobacco/nicotine Alcohol intake: never Substance/Drug Use: never Physical Exam Const: COMMON NORMALS: no acute distress, patient oriented x3, no limitations, alert and well nourished GENERAL APPEARANCE: cooperative and anxious ORIENTATION/CONSCIOUSNESS: Yes awake, Yes oriented to person, Yes oriented to place and Yes oriented to time HENMT: COMMON NORMALS: normocephalic and atraumatic HEAD & SCALP: normal to inspection, normocephalic and atraumatic Eye: COMMON NORMALS: no scleral icterus Neck/C-Spine: COMMON NORMALS: full ROM, no lymphadenopathy and no meningeal signs Resp: COMMON NORMALS: normal respiratory effort and clear to auscultation bilaterally AUSCULTATION: clear to auscultation bilaterally Cardio: COMMON NORMALS: regular rhythm RATE: tachycardic RHYTHM: regular rhythm GI: COMMON NORMALS: Normal to inspection, nondistended, normoactive bowel sounds present, Soft to palpation, No hepatosplenomegaly present and no masses INSPECTION: Yes normal to inspection PALPATION: Yes Soft to palpation, Yes Tenderness to palpation present (GI) (across lower abdomen ), No Guarding due to palpation present (GI), No Rigid due to palpation and Yes No hepatosplenomegaly present : COMMON NORMALS: Yes no CVA tenderness BLADDER/KIDNEY EXAM: Yes no CVA tenderness Back/Pelvis: COMMON NORMALS: no CVA tenderness, thoracic and lumbar spine normal to inspection, thoraco-lumbar ROM normal and straight leg raise negative bilaterally LUMBAR SPINE/LOWER BACK: Yes paraspinal muscle tenderness (mild discomfort across lower back; no flank pain) Extremity: COMMON NORMALS: normal to inspection GENERAL: Yes normal exam except as noted Neuro: ANITA COMA SCALE: document GCS findings Anita coma scale eye opening: Spontaneous Drake coma scale verbal response: Orientated Anita coma scale motor response: Obey commands Anita coma scale total score: 15 COMMON NORMALS: patient oriented x3 SENSORIUM/ORIENTATION: Yes alert, Yes oriented to person, Yes oriented to place and Yes oriented to time MENINGEAL SIGNS: Yes no meningeal signs Skin: COMMON NORMALS: no rashes or lesions noted GENERAL SKIN EXAM: no rashes or lesions noted Course Vital Signs: Vital signs: Vital Signs Temperature 98.1 F 07/15/25 09:19 Pulse Rate 123 H 07/15/25 09:19 Respiratory Rate 16 07/15/25 09:19 Blood Pressure 158/111 07/15/25 09:19 Pulse Oximetry 96 07/15/25 09:19 Oxygen Delivery Me thod Room Air 07/15/25 09:19 MDM - Female Medical Decision Making Patient is a nice 35-year-old for complaints of urinary frequency, urgency, dysuria, hematuria over the past several days. She has been taking Bactrim without relief. UA performed in the clinic several days ago did not have culture and sensitivity report. Patient arrives in no acute distress although she was tachycardic upon arrival-attributes this to anxiety. This did resolve during her stay. Blood work showing a normal white count/normal lactic. 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 She was given oral/IV replacement here prior to discharge. Recommend to have this checked with her primary care next week. Will culture her urine today. Will switch her antibiotics to ciprofloxacin. Strict return to ED precautions discussed. Medical Records I reviewed the patient's medical records. Lab Data I reviewed the patient's lab results. 07/15/25 09:26 07/15/25 09:26 Laboratory Results WBC 9.93 10^3/uL (3.29-11.43) 07/15/25 09: RBC 4.95 10^6/uL (3.85-5.65) 07/15/25 09:26 Hgb 13.70 g/dL (11.27-16.99) 07/15/25 09: Hct 41.7 % (36-47) 07/15/25 09: MCV 84.2 fl (85-98) L 07/15/25 09:26 MCH 27.7 pg (27-33) 07/15/25 09: MCHC 32.9 g/dL (30-55) 07/15/25 09: RDW 14.6 % (12.1-15.1) 07/15/25 09: Plt Count 330 10^3/cmm (157-399) 07/15/25 09: MPV 8.6 fL (7.4-10.4) 07/15/25 09:26 Neut % (Auto) 65.4 % 07/15/25 09:26 Lymph % (Auto) 25.8 % 07/15/25 09:26 Lamar % (Auto) 6.3 % 07/15/25 09:26 Eos % (Auto) 1.3 % 07/15/25 09:26 Baso % (Auto) 0.7 % 07/15/25 09: Neut # (Auto) 6.49 10^3/uL (1.8-7.7) 07/15/25 09: Lymph # (Auto) 2.6 10^3/uL (0.8-4.8) 07/15/25 09:26 Lamar # (Auto) 0.6 10^3/uL (0.2-0.9) 07/15/25 09: Eos # (Auto) 0.1 10^3/uL (0.0-0.8) 07/15/25 09:26 Baso # (Auto) 0.1 10^3/uL (0.0-0.1) 07/15/25 09:26 Nucleated RBC % (auto) 0 % 07/15/25 09: Nucleated RBCs # 0.0 /100WBC 12/12/25 09:26 Sodium 137 mmol/L (136-145) 07/15/25 09:26 Potassium 2.6 mmol/L (3.5-5.1) L* 07/15/25 09:26 Chloride 97 mmol/L (98-107) L 07/15/25 09:26 Carbon Dioxide 25 mmol/L (22-29) 07/15/25 09:26 Anion Gap 17.6 (5-19) 07/15/25 09:26 BUN 17 mg/dL (6-20) 07/15/25 09:26 Creatinine 0.9 mg/dL (0.5-0.9) 07/15/25 09:26 GFR Calculation 72.1 mL/min (90-130) L 07/15/25 09:26 Glucose 263 mg/dL (65-115) H 07/15/25 09:26 Calculated Osmolality 295 mOsm/kg (285-295) 07/15/25 09:26 Lactic Acid 2.2 mmol/L (0.5-2.2) 07/15/25 09:26 Calcium 9.5 mg/dL (8.5-10.5) 07/15/25 09:26 Magnesium 1.3 mg/dL (1.7-2.3) L 07/15/25 09:26 Total Bilirubin 0.3 mg/dL (0.15-1.2) 07/15/25 09:26 AST 8 U/L (0-32) 07/15/25 09:26 ALT 11 U/L (0-33) 07/15/25 09:26 Alkaline Phosphatase 60 U/L (35-105) 07/15/25 09:26 Total Protein 7.4 g/dL (6.6-8.7) 07/15/25 09:26 Albumin 4.4 g/dL (3.5-5.2) 07/15/25 09:26 Globulin 3.0 g/dL (1.3-4.6) 07/15/25 09:26 HCG, Qual Negative (Negative) 07/15/25 09:26 Urine Color Dark yellow (Yellow) A 07/15/25 09:27 Urine Appearance Cloudy (CLEAR) A 07/15/25: Urine pH 7.5 (5-7) 07/15/25 09:27 Ur Specific [place] 1.016 (1.005-1.030) 07/15/25 09: Urine Protein 1+ (Negative) A 07/15/25 09: Urine Glucose (UA) Negative (Normal) 07/15/25 09: Urine Ketones Negative (Negative) 07/15/25 09:27 Urine Blood 1+ (Negative) A 07/15/25 09: Urine Nitrate Positive (Negative) A 07/15/25 09: Urine Bilirubin Negative (Negative) 07/15/25 09: Urine Urobilinogen 1.0 mg/dL (Negative) 07/15/25 09: Ur Leukocyte Esterase 2+ (Negative) A 07/15/25 09: Urine RBC 11-20 /hpf (0-2) H 07/15/25 09: Urine WBC >100 /hpf (0-5) H 07/15/25 09:27 Ur Squamous Epith Cells 0-5 /hpf (0-5) 07/15/25 09: Amorphous Sediment Not Reportable 07/15/25 09: Urine Bacteria None seen /hpf (NONE) 07/15/25 09: Hyaline Casts 0.40 /lpf 07/15/25 09:27 No radiology studies performed this visit Discharge Plan Discharge Patient Disposition: Home Clinical Impression: Bartter syndrome, Hypokalemia, Hypomagnesemia Acute cystitis Qualifiers: Hematuria presence: with hematuria Qualified Code(s): N30.01 - Acute cystitis with hematuria Condition: Stable Prescriptions: New ciprofloxacin HCl [Cipro] 500 mg tablet 500 mg PO Q12H Qty: 14 0RF No Action cyclobenzaprine 10 mg tablet 10 mg PO TID PRN (Reason: muscle spasms) ivabradine 5 mg tablet 5 mg PO BID Rx Instructions: must administer with a meal/food magnesium gluconate 27 mg magnesium (500 mg) tablet 27 mg PO TID fluoxetine 20 mg capsule 20 mg PO QAM folic acid 1 mg tablet 1 mg PO DAILY Qty: 90 1RF methotrexate sodium 2.5 mg tablet See Rx Instructions PO .week Qty: 50 3RF Rx Instructions: Split dose.. take 10 tabs on the same day once a week, take 5 tabs in the AM and 5 tabs in the PM. Sundays omeprazole 40 mg capsule,delayed release(DR/EC) 40 mg PO BID Qty: 60 5RF prednisone 5 mg tablet 5 mg PO DAILY Qty: 90 0RF midodrine 5 mg tablet 5 mg PO TID Rx Instructions: do not give last dose of day after 6PM or within 4 hrs of bedtime buspirone 10 mg tablet 10 mg PO BID PRN (Reason: Anxiety) prednisone 20 mg tablet See Rx Instructions PO .COMPLEX PRN (Reason: joint pain flare) Qty: 30 1RF Rx Instructions: Take 1 tablet by mouth daily for 5 days as needed for arthritis flare. alprazolam [Xanax] 0.5 mg Tablet 0.5 mg PO TID PRN (Reason: Anxiety) fluoxetine 40 mg capsule 40 mg PO BEDTIME potassium chloride 10 mEq capsule, extended release 100 meq PO 5XD ondansetron 8 mg tablet,disintegrating 8 mg PO .Q4-6H PRN (Reason: Nausea And Vomiting) gabapentin 300 mg capsule 300 mg PO TID PRN (Reason: nerve pain) sulfamethoxazole-trimethoprim 800-160 mg tablet 1 tab PO BID spironolactone 25 mg tablet 25 mg PO DAILY alum-mag hydroxide-simeth 200-200-20 mg/5 mL Suspension 15 ml PO QID PRN (Reason: Stomach Upset) Discharge Orders: Discharge ED (Routine); Ordered 07/15/25 Ordered By: Ellie Peterson Referrals: Luiza Armijo APN [Primary Care Provider, Nurse Practitioner] Patient Instructions: Urinary Tract Infection in Women (DC), Patient Portal & Roxy Instructions Activity Restrictions/Additional Instructions: As we discussed, your urine today still showing evidence of a urinary tract infection. We will culture and perform sensitivity report. I would like you to discontinue your Bactrim and I will place you on ciprofloxacin. You need to return to the emergency department for onset of worsening pain, repetitive episodes of vomiting, inability to tolerate your antibiotics, fevers, severe back pain or flank pain, generally feeling worse or unwell, or any other concerns you may have. You were given IV potassium and magnesium here in the emergency department. These can be rechecked through primary care next week. Print Language: Scottish Coding Level of Care Code ED Telegraph Editor for Melany Yip
[2025-07-15 09:34] LABS: Hematocrit 41.7 % (36-47); Hemoglobin 13.70 g/dL (11.27-16.99); Mean Corpuscular HGB Conc 32.9 g/dL (30-55); Mean Corpuscular Hemoglobin 27.7 pg (27-33); Mean Corpuscular Volume 84.2 fl (85-98); Nucleated Red Blood Cells % 0 %; Platelet Count 330 10^3/cmm (157-399); Red Blood Count 4.95 10^6/uL (3.85-5.65); White Blood Count 9.93 10^3/uL (3.29-11.43)
[2025-07-15 09:36] LABS: Glucose Urine UA Negative (Normal); Nitrate Urine Positive (Negative); Specific Gravity, Urine 1.016 (1.005-1.030)
[2025-07-15 09:41] LABS: Add Urine Microscopic? YES
[2025-07-15 09:55] LABS: Lactic Sepsis W/Reflex 2.2 mmol/L (0.5-2.2)
[2025-07-15 09:57] LABS: Alanine Aminotransferase 11 U/L (0-33); Albumin Level 4.4 g/dL (3.5-5.2); Alkaline Phosphatase 60 U/L (35-105); Anion Gap 17.6 (5-19); Aspartate Amino Transferase 8 U/L (0-32); Blood Urea Nitrogen 17 mg/dL (6-20); Calcium 9.5 mg/dL (8.5-10.5); Carbon Dioxide 25 mmol/L (22-29); Chloride 97 mmol/L (98-107); Globulin 3.0 g/dL (1.3-4.6); Glucose 263 mg/dL (65-115); Osmolality Calculated 295 mOsm/kg (285-295); Sodium 137 mmol/L (136-145); Total Protein 7.4 g/dL (6.6-8.7)
[2025-07-15 09:58] LABS: Potassium 2.6 mmol/L (3.5-5.1)
[2025-07-15 10:05] LABS: HCG, Serum Qual Negative (Negative)
[2025-07-15 10:16] LABS: Magnesium 1.3 mg/dL (1.7-2.3); Reflex Lactate Order REFLEX LACTIC ORDERD
--- NOTE | 2025-07-15 10:29 | PC.PHAR ---
Pt states Famotidine 40mg daily 07/07/25 30ds was dc'd and replaced with Omeprazole 40mg bid. Pt has a Botox order that she takes in clinic for migraines.
[2025-07-15] MEDS: potassium chloride oral liq 20 mEq/15 mL UDC 40 MEQ PO (10:46)
[2025-07-15] MEDS: potassium chloride oral liq 20 mEq/15 mL UDC PO (10:46)
[2025-07-15] MEDS: cefTRIAXone 1,000 mg SDV 1000 MG IVP (10:48)
[2025-07-15] MEDS: magnesium sulfate premix 1 GM/100 ML PIGGYBACK IV (10:52)
[2025-07-15] MEDS: lidocaine 1% 5 ML in potassium chloride premix 100 ML 52.5 ML IV (10:56)
--- NOTE | 2025-07-15 11:45 | PC.NURSE ---
pt's call light going off, this nurse assessed pt. pt reporting severe L sided chest pain, SOB. this nurse obtained EKG, applied cardiac monitoring to pt, and stopped IV K+ infusion. informed ED provider. per ED provider EKG appropriate and to continue infusion if patient agreeable. pt confirms to continue infusion. pt requesting tylenol for VINSON
== END 2025-07-15 13:22 | disposition home or self-care (01) ==
PROVIDERS: Emergency Provider Physician Assistant; PCP Nurse Practitioner Family
DX: E26.81 Bartter's syndrome (principal); E87.6 Hypokalemia; E83.42 Hypomagnesemia; N30.01 Acute cystitis with hematuria
CPT/HCPCS: 36415; 80053; 81001; 83605; 83735; 84703; 85025; 87077; 87086; 87186; 96365; 96375; 99284; J0696; J3475; J3480; J7030; J9999